=== PATIENT | male | born 1945 | race Caucasian/White ===

== ENCOUNTER 2018-12-13 12:49 | Inpatient (IN) | payer MEDICARE ==
[~2018-12-13] VITALS: Ht 180.3 cm; Wt 125.4 kg
[2018-12-13] VITALS (12 sets, daily range): BP systolic 107–158; BP diastolic 48–100
[~2018-12-13 12:49] MED LIST: ALBU2.5V5 NEB; ALBU2.5V8 INH; AMLO10TA8 PO; AMOX1TAB61 PO; ASPI-482 PO; CLOP75TA PO; EPINEPHrine SYRINGE 1 MG/10 ML SYRINGE ONE; FURO40TA4 PO; GLIM4TAB2 PO; GLIP10TA13 PO; GLIP5TAB3 PO; INSU100I13 SQ; LEVO125T5 PO; LEVO200T5 PO; LISI-130 PO; LISI-334 PO; METF100010 PO; METF10007 PO; METO25TA4 PO; NITR0.4T22 SL; OMEG1CAP38 PO; POTA10TA12 PO; POTA20TA4 PO; PRAS10TA9 PO; PRAV40TA2 PO
[2018-12-13] MEDS ORDERED: LIDOCAINE 1% Multi-Dose 20 ML VIAL. ONE (12:53)
[2018-12-13] MEDS ORDERED: IODIXANOL 320 MG/ML 100 ML VIAL. ONE (12:53)
[2018-12-13] MEDS ORDERED: diphenhydrAMINE 50 MG/ML VIAL ONE (12:57)
[2018-12-13] MEDS ORDERED: HEPARIN for IV BOLUS 10,000 UNIT/10 ML VIAL. ONE (12:57)
[2018-12-13] MEDS ORDERED: fentaNYL PF VIAL 100 MCG/2 ML VIAL ONE (12:57)
[2018-12-13] MEDS ORDERED: NITROGLYCERIN 200 MCG/2 ML SYRINGE FOR CATH/VASC LAB. ONE (12:57)
[2018-12-13] MEDS ORDERED: methylPREDNISolone SOD SUCC PF 125 MG/2 ML VIAL. ONE (12:57)
[2018-12-13] MEDS ORDERED: FAMOTIDINE 20 MG/2 ML VIAL ONE (12:57)
[2018-12-13] MEDS ORDERED: VERAPAMIL 5 MG/2 ML VIAL. ONE (12:57)
[2018-12-13] MEDS ORDERED: MIDAZOLAM HCL/PF 2 MG/2 ML VIAL. ONE (12:57)
[2018-12-13] MEDS ORDERED: NITROGLYCERIN PREMIX 250 ML IV ONE ×2 (13:04→13:15)
[2018-12-13] MEDS ORDERED: FUROSEMIDE 100 MG/10 ML VIAL. ONE (13:07)
[2018-12-13] MEDS ORDERED: FUROSEMIDE 100 MG/10 ML VIAL. IVP ONE (13:15)
--- NOTE | 2018-12-13 13:15 | PHYS DOC ---
Past Medical History Past Medical History: CHF, CVA, Diabetes-Type II, High Cholesterol, Heart Disease, Hypertension, Hypothyroid, UT, Other Additional Past Medical Histor: lower ext swelling, short term memory loss Past Surgical History: Other Additional Past Surgical Histo: carotidendarterecomty, cardiac stent Alcohol Use: Rarely Drug Use: None Adult General HPI HPI Patient is a 73-year-old male who presents to the emergency department in respiratory failure. According to EMS, the patient was found down in the shower by someone in his home, although the reliability of this information is unclear at this time. They placed the patient on BiPAP due to respiratory difficulty and hypoxia, and by the time the patient arrived in the emergency department, he was barely arousable. EMS activated the code STEMI, although upon arrival, inspection of both patient's prehospital and hospital EKGs reveals atrial fibrillation with a left branch block without acute ST elevation Myocardial infarction. Cardiology did meet the patient in the emergency department as well for this. The patient is unable to provide any history secondary to lethargy and respiratory failure. He was initially placed on CPAP by EMS, placed on BiPAP initially in the emergency department while preparations for intubation were made. Review of Systems Review of Systems Unable to obtain review of systems secondary to altered mental status. Current Medications Current Medications Current Medications Medications (Trade) Dose Ordered Sig/Nafisa Start Time Stop Time Status Last Admin Dose Admin Diphenhydramine HCl (Benadryl) 50 mg STK-MED ONCE 12/13/18 12:57 12/13/18 12:58 DC Famotidine (Pepcid Vial) 20 mg STK-MED ONCE 12/13/18 12:57 12/13/18 12:58 DC Fentanyl Citrate (Fentanyl 2ml Vial) 100 mcg STK-MED ONCE 12/13/18 12:57 12/13/18 12:58 DC Furosemide (Lasix) 80 mg 1X ONCE 12/13/18 13:15 12/13/18 13:16 DC 12/13/18 13:12 80 MG Heparin Sodium (Porcine) (Heparin Sodium) 10,000 unit STK-MED ONCE 12/13/18 12:57 12/13/18 12:58 DC Heparin Sodium/ Sodium Chloride 1,000 ml @ As Directed STK-MED ONCE 12/13/18 12:53 12/13/18 12:54 DC Iodixanol (Visipaque 320) 100 ml STK-MED ONCE 12/13/18 12:53 12/13/18 12:54 DC Lidocaine HCl (Lidocaine 1% 20ml Vial) 20 ml STK-MED ONCE 12/13/18 12:53 12/13/18 12:54 DC Methylprednisolone Sodium Succinate (SOLU-Medrol 125MG VIAL) 125 mg STK-MED ONCE 12/13/18 12:57 12/13/18 12:58 DC Midazolam HCl (Versed) 2 mg STK-MED ONCE 12/13/18 12:57 12/13/18 12:58 DC Nitroglycerin (Nitroglycerin) 200 mcg STK-MED ONCE 12/13/18 12:57 12/13/18 12:58 DC Nitroglycerin/ Dextrose 250 ml @ 0 mls/hr 1X ONCE 12/13/18 13:15 12/13/18 13:16 DC 12/13/18 13:11 1.5 MLS/HR Propofol 50 ml @ 1.857 mls/ hr 1X ONCE 12/13/18 13:30 12/14/18 16:25 12/13/18 13:31 14.86 MLS/HR Verapamil HCl (Verapamil) 5 mg STK-MED ONCE 12/13/18 12:57 12/13/18 12:58 DC Allergies Allergies Allergies Coded Allergies Type Severity Reaction Last Updated Verified Iodinated Contrast- Oral and IV Dye Allergy Intermediate Rash 07/19/16 Yes Physical Exam Physical Exam PHYSICAL EXAM: CONSTITUTIONAL: Well developed, well nourished HEAD: normocephalic, atraumatic EENT: PERRL, EOMI. Conjunctivae normal color, sclerae non-icteric; moist mucous membranes. NECK: Supple, non-tender; no meningismus. LUNGS: Diffuse rales, with decreased respiratory effort HEART: Irregularly irregular rhythm, no audible murmur CHEST: No deformity; non-tender ABDOMEN: The abdomen is soft, and non-tender, no masses or bruits. EXTREM: Normal ROM; no deformity, no calf tenderness. Normal pulses palpable in all extremities. There is 2+ bilateral pitting pedal edema. SKIN: No rash; there is diffuse diaphoresis NEURO: The patient is lethargic without definite focal deficit Current Patient Data Vital Signs Vital Signs Date Time Temp Pulse Resp B/P (MAP) Pulse Ox O2 Delivery O2 Flow Rate FiO2 12/13/18 13:06 92 Ventilator 12/13/18 12:50 96.3 115 20 155/98 (117) 96.3 Lab Values Laboratory Tests Test 12/13/18 13:05 12/13/18 13:11 12/13/18 13:20 White Blood Count 12.3 x10^3/uL (4.0-11.0) H Red Blood Count 4.04 x10^6/uL (4.30-5.70) L Hemoglobin 12.1 g/dL (13.0-17.5) L Hematocrit 38.2 % (39.0-53.0) L Mean Corpuscular Volume 95 fL (79-100) Mean Corpuscular Hemoglobin 30 pg (25-35) Mean Corpuscular Hemoglobin Concent 32 g/dL (31-37) Red Cell Distribution Width 15.1 % (11.5-14.5) H Platelet Count 222 x10^3/uL (140-400) Neutrophils (%) (Auto) 38 % (31-73) Lymphocytes (%) (Auto) 47 % (24-48) Monocytes (%) (Auto) 11 % (0-9) H Eosinophils (%) (Auto) 3 % (0-3) Basophils (%) (Auto) 1 % (0-3) Neutrophils # (Auto) 4.7 x10^3uL (1.8-7.7) Lymphocytes # (Auto) 5.8 x10^3/uL (1.0-4.8) H Monocytes # (Auto) 1.3 x10^3/uL (0.0-1.1) H Eosinophils # (Auto) 0.4 x10^3/uL (0.0-0.7) Basophils # (Auto) 0.1 x10^3/uL (0.0-0.2) Prothrombin Time 16.0 SEC (11.7-14.0) H Prothrombin Time INR 1.3 (0.8-1.1) H PTT 28 SEC (24-38) Sodium Level 138 mmol/L (136-145) Potassium Level 4.0 mmol/L (3.5-5.1) Chloride Level 102 mmol/L (98-107) Carbon Dioxide Level 23 mmol/L (21-32) Anion Gap 13 (6-14) 17 mmol/L (6-14) H Blood Urea Nitrogen 25 mg/dL (8-26) Creatinine 1.6 mg/dL (0.7-1.3) H Estimated GFR (Cockcroft-Gault) 42.7 BUN/Creatinine Ratio 16 (6-20) Glucose Level 396 mg/dL (70-99) H 391 mg/dL (70-99) H Calcium Level 8.7 mg/dL (8.5-10.1) Magnesium Level 2.0 mg/dL (1.8-2.4) Total Bilirubin 0.3 mg/dL (0.2-1.0) Aspartate Amino Transferase (AST) 22 U/L (15-37) Alanine Aminotransferase (ALT) 20 U/L (16-63) Alkaline Phosphatase 63 U/L (46-116) Creatine Kinase 74 U/L (39-308) Creatine Kinase MB (Mass) 2.2 ng/mL (0.0-3.6) Creatine Kinase MB Relative Index % (0-4) Troponin I Quantitative < 0.017 ng/mL (0.000-0.055) LE-Ksi-M-Type Natriuretic Peptide 514 pg/mL (0-124) H Total Protein 8.1 g/dL (6.4-8.2) Albumin 3.4 g/dL (3.4-5.0) Albumin/Globulin Ratio 0.7 (1.0-1.7) L POC Hemoglobin 12.6 g/dL (14-18) L POC Hematocrit 37 % (37-52) POC Sodium 140 mmol/L (135-145) POC Potassium 4.0 mmol/L (3.5-5.0) POC Chloride 104 mmol/L (98-110) POC Total CO2 24 mmol/L (23-32) POC Blood Urea Nitrogen 24 mg/dL (8-26) POC Creatinine 1.3 mg/dL (0.5-1.4) POC Ionized Calcium (Giuliana) 1.17 mmol/L (1.13-1.32) Urine Collection Type U cath Urine Color Yellow Urine Clarity Clear Urine pH 5.5 Urine Specific [place] 1.015 Urine Protein 100 mg/dL (NEG-TRACE) Urine Glucose (UA) >=1000 mg/dL (NEG) Urine Ketones (Stick) Negative mg/dL (NEG) Urine Blood Small (NEG) Urine Nitrite Negative (NEG) Urine Bilirubin Negative (NEG) Urine Urobilinogen Dipstick 0.2 mg/dL (0.2 mg/dL) Urine Leukocyte Esterase Negative (NEG) Urine RBC 11-20 /HPF (0-2) Urine WBC 0 /HPF (0-4) Urine Amorphous Sediment Present /HPF Urine Bacteria 0 /HPF (0-FEW) Urine Hyaline Casts Moderate /HPF Urine Mucus Slight /LPF Laboratory Tests 12/13/18 13:05 Laboratory Tests 12/13/18 13:05 12/13/18 13:11 EKG EKG [] atrial fibrillation at a rate of 115 beats for minute, left axis deviation, left bundle-branch block, with repolarization abnormality without definite acute ischemic ST/T changes. left Bundle-branch block was present on the patient's old EKG. Radiology/Procedures Radiology/Procedures [PROCEDURE: PORTABLE CHEST 1V PORTABLE CHEST 1V Clinical indications: ETT PLACEMENT COMPARISON: December 06, 2017. Findings: ET tube is in place and the tip is located 2 cm above the level of the bella. NG tube is in place in the tip cannot be seen in this study. Moderate bilateral perihilar lung infiltrates or pulmonary edema are seen. No pleural effusion or pneumothorax is seen. Heart size is prominent but stable. Bilateral vascular congestion is evident. The mediastinum is stable. IMPRESSION: Moderate bilateral perihilar pulmonary edema or lung infiltrates. Position of NG tube cannot be confirmed on this chest x-ray] Course & Med Decision Making Course & Med Decision Making Pertinent Labs and Imaging studies reviewed. (See chart for details) [] INTUBATION NOTE: The patient was preoxygenated, and given 20 mg of etomidate and 150 mg of succinylcholine. The patient was intubated with the use of a glidescope, a small amount of frothy sputum was suctioned from the posterior pharynx. The 7.5 endotracheal tube was placed, secured at a 4 cm at the lips, bilateral breath sounds are present, breath sounds were absent over the stomach, good color change was present with an end-tidal CO2 detector. CRITICAL CARE TIME: [50] Minutes, excluding any procedures and care of other patients. 1:50 PM: The patient's condition remains stable. I spoke with the hospitalist , who accepted the patient to the hospital for further evaluation and treatment. Ventilator settings will be titrated based on his ABG results. 2:05 PM: The patient had about a 15 second pause, relatively without warning, this was preceded either by a relative slow V. tach, or aberrent conduction, I was unable to determine from the monitor but I was in the room at the time. The patient received about 10 seconds of CPR, although this may have been a long pause instead of asystole. His gypsy transiently stopped, but he recovered well. He is more alert at this time, actually following commands after the episode. this is likely due to correction a CO2 narcosis by endotracheal intubation. Dragon Disclaimer Dragon Disclaimer This electronic medical record was generated, in whole or in part, using a voice recognition dictation system. Departure Departure Impression: Primary Impression: Respiratory failure Additional Impression: CHF (congestive heart failure) Disposition: 09 ADMITTED INPATIENT Admitting Physician: Other ([facility]) Condition: CRITICAL Referrals: YIMI DEGROOT MD (PCP) Problem Qualifiers BRAULIO ROBERT MD Dec 13, 2018 13:15
[2018-12-13 13:17] LABS: CREATININE ISTAT 1.3 mg/dL (0.5-1.4); HEMOGLOBIN ISTAT 12.6 g/dL (14-18); ION CA ISTAT 1.17 mmol/L (1.13-1.32)
[2018-12-13 13:20] LABS: BASO # 0.1 x10^3/uL (0.0-0.2); BASO % 1 % (0-3); EOS # 0.4 x10^3/uL (0.0-0.7); EOS % 3 % (0-3); HEMATOCRIT 38.2 % (39.0-53.0); HEMOGLOBIN 12.1 g/dL (13.0-17.5); LYMPH # 5.8 x10^3/uL (1.0-4.8); LYMPH % 47 % (24-48); MEAN CORPUSCULAR HEMOGLOBIN 30 pg (25-35); MEAN CORPUSCULAR HGB CONC 32 g/dL (31-37); MEAN CORPUSCULAR VOLUME 95 fL (79-100); MONO # 1.3 x10^3/uL (0.0-1.1); MONO % 11 % (0-9); NEUT # 4.7 x10^3uL (1.8-7.7); NEUT % 38 % (31-73); PLATELET COUNT 222 x10^3/uL (140-400); RED BLOOD COUNT 4.04 x10^6/uL (4.30-5.70); RED CELL DISTRIBUTION WIDTH 15.1 % (11.5-14.5); WHITE BLOOD COUNT 12.3 x10^3/uL (4.0-11.0)
[2018-12-13] MEDS ORDERED: PROPOFOL 50 ML IV ONE ×2 (13:25→13:30)
[2018-12-13 13:26] LABS: BASE EXCESS ABG -7 mmol/L (-3-3); HCO3 ABG 23 mmol/L (21-28); PO2 ABG 114 mmHg (65-108); SAT O2 ABG 97 % (92-99)
[2018-12-13 13:28] LABS: BILIRUBIN,URINE NEGATIVE (NEG); CLARITY,URINE CLEAR; COLOR,URINE YELLOW; NITRITE,URINE NEGATIVE (NEG); PH,URINE 5.5; PROTEIN,URINE 100 mg/dL (NEG-TRACE); UROBILINOGEN,URINE 0.2 mg/dL (0.2 mg/dL)
[2018-12-13 13:35] LABS: HYALINE CASTS, URINE MODERATE /HPF
[2018-12-13 13:36] LABS: ALBUMIN 3.4 g/dL (3.4-5.0); CALCIUM 8.7 mg/dL (8.5-10.1); CREATININE 1.6 mg/dL (0.7-1.3); GFR 42.7; TOTAL BILIRUBIN 0.3 mg/dL (0.2-1.0)
[2018-12-13 13:36] LABS: AMORPHOUS SEDIMENT,UR PRESENT /HPF; BACTERIA,URINE 0 /HPF (0-FEW); WBC,URINE 0 /HPF (0-4)
--- NOTE | 2018-12-13 13:41 | EKG ---
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
[2018-12-13 13:45] LABS: CREATINE KINASE 74 U/L (39-308)
--- NOTE | 2018-12-13 13:45 | RAD ---
PORTABLE CHEST 1V Clinical indications: ETT PLACEMENT COMPARISON: December 06, 2017. Findings: ET tube is in place and the tip is located 2 cm above the level of the bella. NG tube is in place in the tip cannot be seen in this study. Moderate bilateral perihilar lung infiltrates or pulmonary edema are seen. No pleural effusion or pneumothorax is seen. Heart size is prominent but stable. Bilateral vascular congestion is evident. The mediastinum is stable. IMPRESSION: Moderate bilateral perihilar pulmonary edema or lung infiltrates. Position of NG tube cannot be confirmed on this chest x-ray. Electronically signed by: Yohan Webb MD (12/13/2018 1:42 PM) [place] [id number]
[2018-12-13 13:48] LABS: ALBUMIN/GLOBULIN RATIO 0.7 (1.0-1.7); TOTAL PROTEIN 8.1 g/dL (6.4-8.2)
[2018-12-13] MEDS ORDERED: NITROGLYCERIN SUBLINGUAL 0.4 MG BOTTLE OF 25. SL PRN (14:15)
[2018-12-13] MEDS ORDERED: MORPHINE SULFATE 2 MG/ML VIAL. IV PRN (14:15)
[2018-12-13] MEDS ORDERED: ACETAMINOPHEN 325 MG TABLET. PO PRN (14:15)
[2018-12-13] MEDS ORDERED: ONDANSETRON PF 4 MG/2 ML VIAL. IV PRN (14:15)
[2018-12-13] MEDS ORDERED: oxyCODONE IR 5 MG TABLET PO PRN (14:15)
[2018-12-13] MEDS ORDERED: 0.9 % SODIUM CHLORIDE 10 ML DISP.SYRIN. IV PRN (14:15)
[2018-12-13] MEDS ORDERED: ENOXAPARIN 40 MG/0.4 ML SYRINGE. SQ SCH (14:30)
--- NOTE | 2018-12-13 14:31 | PDOC1 ---
History and Physical Date of Admission Date of Admission December 13, 2018 Identification/Chief Complaint Chief Complaint Respiratory failure Source Source: Caregiver, Chart review, Patient History of Present Illness History of Present Illness History is from interview with family members at bedside and from ER physician report Patient is a 73-year-old gentleman with multiple medical comorbidities including coronary artery disease history of chronic combined systolic and diastolic dysfunction was in his usual state of health until this morning apparently the patient became very short of breath and EMS was summoned to his residence where he was found to be dyspneic. 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 According to family members he has not had recent upper respiratory tract infection symptoms he didn't does not seem to have had recent fevers cough sputum production. Unfortunately according to the family members they are not quite sure if his adherent to his medications or if he observes the dietary restrictions with salt that he should be taking given his history of congestive heart failure. Upon arrival to the emergency department given the severe respiratory distress ER physician intubated patient and is currently on a ventilator awaiting for admission to the intensive care unit for acute respiratory failure hypoxemic secondary to urinary edema. No chest pain reported no palpitations no syncopal episodes no paroxysmal nocturnal dyspnea, the patient denied nausea vomiting or diarrhea. At the time my evaluation the patient is on mechanical ventilation in no apparent distress. Hemodynamics are stable sedated at the present time. Now responding to verbal stimuli due to the sedation. Reassurance has been provided to the family members at bedside plan of care explaining detail and all concerns address to the best of my abilities ER story: Patient is a 73-year-old male who presents to the emergency department in respiratory failure. According to EMS, the patient was found down in the shower by someone in his home, although the reliability of this information is unclear at this time. They placed the patient on BiPAP due to respiratory difficulty and hypoxia, and by the time the patient arrived in the emergency department, he was barely arousable. EMS activated the code STEMI, although upon arrival, inspection of both patient's prehospital and hospital EKGs reveals atrial fibrillation with a left branch block without acute ST elevation Myocardial infarction. Cardiology did meet the patient in the emergency department as well for this. The patient is unable to provide any history secondary to lethargy and respiratory failure. He was initially placed on CPAP by EMS, placed on BiPAP initially in the emergency department while preparations for intubation were made. Past Medical History Cardiovascular: CHF, HTN, [place], Other Pulmonary: No pertinent hx, Bronchitis, COPD, Pneumonia, Other CENTRAL NERVOUS SYSTEM: CVA GI: GERD Renal/: Chronic renal insuff Endocrine: Diabetes, Hypothyroidism Past Surgical History Past Surgical History: Other, No pertinent history Family History Family History: Family History Unknown Social History ALCOHOL: rare Drugs: None Current Problem List Problem List Problems Medical Problems: (1) CHF (congestive heart failure) Status: Acute (2) Respiratory failure Status: Acute Current Medications Current Medications Current Medications Medications (Trade) Dose Ordered Sig/Nafisa Start Time Stop Time Status Last Admin Dose Admin Acetaminophen (Tylenol) 650 mg PRN Q6HRS PRN 12/13/18 14:15 Amlodipine Besylate (Norvasc) 10 mg DAILY 12/14/18 09:00 Aspirin (Ecotrin) 81 mg DAILY 12/14/18 09:00 Clopidogrel Bisulfate (Plavix) 75 mg DAILY 12/14/18 09:00 Diphenhydramine HCl (Benadryl) 50 mg STK-MED ONCE 12/13/18 12:57 12/13/18 12:58 DC Famotidine (Pepcid Vial) 20 mg BID 12/13/18 21:00 Fentanyl Citrate (Fentanyl 2ml Vial) 100 mcg STK-MED ONCE 12/13/18 12:57 12/13/18 12:58 DC Furosemide (Lasix) 80 mg 1X ONCE 12/13/18 13:15 12/13/18 13:16 DC 12/13/18 13:12 80 MG Heparin Sodium (Porcine) (Heparin Sodium) 5,000 unit Q8HRS 12/13/18 22:00 Heparin Sodium/ Sodium Chloride 1,000 ml @ As Directed STK-MED ONCE 12/13/18 12:53 12/13/18 12:54 DC Info (Icu Electrolyte Protocol) 1 ea DAILY 12/14/18 09:00 Iodixanol (Visipaque 320) 100 ml STK-MED ONCE 12/13/18 12:53 12/13/18 12:54 DC Lidocaine HCl (Lidocaine 1% 20ml Vial) 20 ml STK-MED ONCE 12/13/18 12:53 12/13/18 12:54 DC Lorazepam (Ativan) 0.5 mg PRN Q6HRS PRN 12/13/18 14:15 Methylprednisolone Sodium Succinate (SOLU-Medrol 125MG VIAL) 125 mg STK-MED ONCE 12/13/18 12:57 12/13/18 12:58 DC Midazolam HCl (Versed) 2 mg STK-MED ONCE 12/13/18 12:57 12/13/18 12:58 DC Morphine Sulfate (Morphine Sulfate) 2 mg PRN Q1HR PRN 12/13/18 14:15 Nitroglycerin (Nitroglycerin) 200 mcg STK-MED ONCE 12/13/18 12:57 12/13/18 12:58 DC Nitroglycerin/ Dextrose 250 ml @ 0 mls/hr 1X ONCE 12/13/18 13:15 12/13/18 13:16 DC 12/13/18 13:11 1.5 MLS/HR Ondansetron HCl (Zofran) 4 mg PRN Q6HRS PRN 12/13/18 14:15 Oxycodone HCl (Roxicodone) 5 mg PRN Q3HRS PRN 12/13/18 14:15 Propofol 50 ml @ 1.857 mls/ hr 1X ONCE 12/13/18 13:30 12/14/18 16:25 12/13/18 13:31 14.86 MLS/HR Senna/Docusate Sodium (Senna Plus) 1 tab BID 12/13/18 21:00 Sodium Chloride (Normal Saline Flush) 3 ml QSHIFT PRN 12/13/18 14:15 Verapamil HCl (Verapamil) 5 mg STK-MED ONCE 12/13/18 12:57 12/13/18 12:58 DC Allergies Allergies Allergies Coded Allergies Type Severity Reaction Last Updated Verified Iodinated Contrast- Oral and IV Dye Allergy Intermediate Rash 07/19/16 Yes ROS Review of System Unable to assess due to endotracheal tube present and sedation Physical Exam Physical Exam Gen.: Obese currently on mechanical ventilation in no apparent distress Head: Normal shape atraumatic Eyes: Pupils equal reactive to light and accommodation, normal conjunctivae and lids Ears: Normal shape Nose: Normal shape no trauma Mouth: No exudates of the back of throat no thrush no lesions Neck: Supple no JVD no carotid bruit or lymphadenopathy no thyromegaly Chest: Lungs clear to auscultation with good inspiratory effort lower lung field crackles, no rales or rhonchi Cardiovascular: S1-S2 regular rhythm no murmurs gallops or rubs Abdomen: Bowel sounds present soft nontender no hepatosplenomegaly appreciated sign Extremities: No clubbing no cyanosis no edema peripheral pulses palpated bilaterally Neurological: Alert awake oriented in person time place and situation, cranial nerves II through XII intact, no motor or sensory deficits appreciated Psych: Appropriate mood, cooperative Vitals Vitals Vital Signs Date Time Temp Pulse Resp B/P (MAP) Pulse Ox O2 Delivery O2 Flow Rate FiO2 12/13/18 13:06 92 Ventilator 12/13/18 12:50 96.3 115 20 155/98 (117) 96.3 Labs Labs Laboratory Tests Test 12/13/18 13:05 12/13/18 13:11 12/13/18 13:20 White Blood Count 12.3 x10^3/uL (4.0-11.0) Red Blood Count 4.04 x10^6/uL (4.30-5.70) Hemoglobin 12.1 g/dL (13.0-17.5) Hematocrit 38.2 % (39.0-53.0) Mean Corpuscular Volume 95 fL (79-100) Mean Corpuscular Hemoglobin 30 pg (25-35) Mean Corpuscular Hemoglobin Concent 32 g/dL (31-37) Red Cell Distribution Width 15.1 % (11.5-14.5) Platelet Count 222 x10^3/uL (140-400) Neutrophils (%) (Auto) 38 % (31-73) Lymphocytes (%) (Auto) 47 % (24-48) Monocytes (%) (Auto) 11 % (0-9) Eosinophils (%) (Auto) 3 % (0-3) Basophils (%) (Auto) 1 % (0-3) Neutrophils # (Auto) 4.7 x10^3uL (1.8-7.7) Lymphocytes # (Auto) 5.8 x10^3/uL (1.0-4.8) Monocytes # (Auto) 1.3 x10^3/uL (0.0-1.1) Eosinophils # (Auto) 0.4 x10^3/uL (0.0-0.7) Basophils # (Auto) 0.1 x10^3/uL (0.0-0.2) Prothrombin Time 16.0 SEC (11.7-14.0) Prothromb Time International Ratio 1.3 (0.8-1.1) Activated Partial Thromboplast Time 28 SEC (24-38) Sodium Level 138 mmol/L (136-145) Potassium Level 4.0 mmol/L (3.5-5.1) Chloride Level 102 mmol/L (98-107) Carbon Dioxide Level 23 mmol/L (21-32) Anion Gap 13 (6-14) 17 mmol/L (6-14) Blood Urea Nitrogen 25 mg/dL (8-26) Creatinine 1.6 mg/dL (0.7-1.3) Estimated GFR (Cockcroft-Gault) 42.7 BUN/Creatinine Ratio 16 (6-20) Glucose Level 396 mg/dL (70-99) 391 mg/dL (70-99) Calcium Level 8.7 mg/dL (8.5-10.1) Magnesium Level 2.0 mg/dL (1.8-2.4) Total Bilirubin 0.3 mg/dL (0.2-1.0) Aspartate Amino Transf (AST/SGOT) 22 U/L (15-37) Alanine Aminotransferase (ALT/SGPT) 20 U/L (16-63) Alkaline Phosphatase 63 U/L (46-116) Creatine Kinase 74 U/L (39-308) Creatine Kinase MB (Mass) 2.2 ng/mL (0.0-3.6) Creatine Kinase MB Relative Index % (0-4) Troponin I Quantitative < 0.017 ng/mL (0.000-0.055) LA-Hyv-X-Type Natriuretic Peptide 514 pg/mL (0-124) Total Protein 8.1 g/dL (6.4-8.2) Albumin 3.4 g/dL (3.4-5.0) Albumin/Globulin Ratio 0.7 (1.0-1.7) Bedside Hemoglobin 12.6 g/dL (14-18) Bedside Hematocrit 37 % (37-52) Bedside Sodium 140 mmol/L (135-145) Bedside Potassium 4.0 mmol/L (3.5-5.0) Bedside Chloride 104 mmol/L (98-110) Bedside Total CO2 24 mmol/L (23-32) Bedside Blood Urea Nitrogen 24 mg/dL (8-26) Bedside Creatinine 1.3 mg/dL (0.5-1.4) Bedside Ionized Calcium (Giuliana) 1.17 mmol/L (1.13-1.32) Urine Collection Type U cath Urine Color Yellow Urine Clarity Clear Urine pH 5.5 Urine Specific [place] 1.015 Urine Protein 100 mg/dL (NEG-TRACE) Urine Glucose (UA) >=1000 mg/dL (NEG) Urine Ketones (Stick) Negative mg/dL (NEG) Urine Blood Small (NEG) Urine Nitrite Negative (NEG) Urine Bilirubin Negative (NEG) Urine Urobilinogen Dipstick 0.2 mg/dL (0.2 mg/dL) Urine Leukocyte Esterase Negative (NEG) Urine RBC 11-20 /HPF (0-2) Urine WBC 0 /HPF (0-4) Urine Amorphous Sediment Present /HPF Urine Bacteria 0 /HPF (0-FEW) Urine Hyaline Casts Moderate /HPF Urine Mucus Slight /LPF Laboratory Tests Test 12/13/18 13:05 12/13/18 13:11 12/13/18 13:20 White Blood Count 12.3 x10^3/uL (4.0-11.0) Red Blood Count 4.04 x10^6/uL (4.30-5.70) Hemoglobin 12.1 g/dL (13.0-17.5) Hematocrit 38.2 % (39.0-53.0) Mean Corpuscular Volume 95 fL (79-100) Mean Corpuscular Hemoglobin 30 pg (25-35) Mean Corpuscular Hemoglobin Concent 32 g/dL (31-37) Red Cell Distribution Width 15.1 % (11.5-14.5) Platelet Count 222 x10^3/uL (140-400) Neutrophils (%) (Auto) 38 % (31-73) Lymphocytes (%) (Auto) 47 % (24-48) Monocytes (%) (Auto) 11 % (0-9) Eosinophils (%) (Auto) 3 % (0-3) Basophils (%) (Auto) 1 % (0-3) Neutrophils # (Auto) 4.7 x10^3uL (1.8-7.7) Lymphocytes # (Auto) 5.8 x10^3/uL (1.0-4.8) Monocytes # (Auto) 1.3 x10^3/uL (0.0-1.1) Eosinophils # (Auto) 0.4 x10^3/uL (0.0-0.7) Basophils # (Auto) 0.1 x10^3/uL (0.0-0.2) Prothrombin Time 16.0 SEC (11.7-14.0) Prothromb Time International Ratio 1.3 (0.8-1.1) Activated Partial Thromboplast Time 28 SEC (24-38) Sodium Level 138 mmol/L (136-145) Potassium Level 4.0 mmol/L (3.5-5.1) Chloride Level 102 mmol/L (98-107) Carbon Dioxide Level 23 mmol/L (21-32) Anion Gap 13 (6-14) 17 mmol/L (6-14) Blood Urea Nitrogen 25 mg/dL (8-26) Creatinine 1.6 mg/dL (0.7-1.3) Estimated GFR (Cockcroft-Gault) 42.7 BUN/Creatinine Ratio 16 (6-20) Glucose Level 396 mg/dL (70-99) 391 mg/dL (70-99) Calcium Level 8.7 mg/dL (8.5-10.1) Magnesium Level 2.0 mg/dL (1.8-2.4) Total Bilirubin 0.3 mg/dL (0.2-1.0) Aspartate Amino Transf (AST/SGOT) 22 U/L (15-37) Alanine Aminotransferase (ALT/SGPT) 20 U/L (16-63) Alkaline Phosphatase 63 U/L (46-116) Creatine Kinase 74 U/L (39-308) Creatine Kinase MB (Mass) 2.2 ng/mL (0.0-3.6) Creatine Kinase MB Relative Index % (0-4) Troponin I Quantitative < 0.017 ng/mL (0.000-0.055) JA-Har-B-Type Natriuretic Peptide 514 pg/mL (0-124) Total Protein 8.1 g/dL (6.4-8.2) Albumin 3.4 g/dL (3.4-5.0) Albumin/Globulin Ratio 0.7 (1.0-1.7) Bedside Hemoglobin 12.6 g/dL (14-18) Bedside Hematocrit 37 % (37-52) Bedside Sodium 140 mmol/L (135-145) Bedside Potassium 4.0 mmol/L (3.5-5.0) Bedside Chloride 104 mmol/L (98-110) Bedside Total CO2 24 mmol/L (23-32) Bedside Blood Urea Nitrogen 24 mg/dL (8-26) Bedside Creatinine 1.3 mg/dL (0.5-1.4) Bedside Ionized Calcium (Giuliana) 1.17 mmol/L (1.13-1.32) Urine Collection Type U cath Urine Color Yellow Urine Clarity Clear Urine pH 5.5 Urine Specific [place] 1.015 Urine Protein 100 mg/dL (NEG-TRACE) Urine Glucose (UA) >=1000 mg/dL (NEG) Urine Ketones (Stick) Negative mg/dL (NEG) Urine Blood Small (NEG) Urine Nitrite Negative (NEG) Urine Bilirubin Negative (NEG) Urine Urobilinogen Dipstick 0.2 mg/dL (0.2 mg/dL) Urine Leukocyte Esterase Negative (NEG) Urine RBC 11-20 /HPF (0-2) Urine WBC 0 /HPF (0-4) Urine Amorphous Sediment Present /HPF Urine Bacteria 0 /HPF (0-FEW) Urine Hyaline Casts Moderate /HPF Urine Mucus Slight /LPF VTE Prophylaxis Ordered VTE Prophylaxis Devices: Yes VTE Pharmacological Prophylaxi: No Assessment/Plan Assessment/Plan Acute hypoxemic respiratory failure secondary to most likely CHF exacerbation Acute on chronic combined systolic and diastolic dysfunction Obesity with a BMI of 38 Obesity hypoventilation syndrome Diabetes mellitus type 2 insulin requiring History off dyslipidemia on statin therapy History of hypothyroidism History of coronary artery disease status post PCI approximately a year ago with RCA involvement currently undergoing medical management History of carotid endarterectomy COPD secondary to smoking history with a greater than [id number] history of smoking quit approximately 10 years ago Plan: Admit to the intensive care unit N management as per Dr. Molina We will consult cardiology at this point Resume home medications Due to the with propofol for sedation Supportive measures Further recommendations based on the clinical course We'll follow results of cultures DVT prophylaxis with heparin YIMI GE MD Dec 13, 2018 14:31
--- NOTE | 2018-12-13 15:00 | NUR ---
Pt admitted to room 105 from the ED via stretcher. Pt is intubated and is lightly sedated. Pt transferred to our bed and monitoring equipment placed. Pt SB on the monitor with a heart rate in the 40's. Blood pressure is stable. Family is at the bedside and the admission questions answered.
[2018-12-13] MEDS ORDERED: ETOMIDATE 20 MG/10 ML VIAL. IV ONE (15:01)
[2018-12-13] MEDS ORDERED: SUCCINYLCHOLINE 200 MG/10 ML VIAL. ONE (15:02)
--- NOTE | 2018-12-13 15:23 | CONS ---
DATE OF CONSULTATION: ATTENDING PHYSICIAN: Dr. Reed. REASON FOR CONSULTATION: Respiratory failure. Brief code blue. HISTORY OF PRESENT ILLNESS: The patient is a 73-year-old morbidly obese male with a BMI of 38. He has history of cardiomyopathy with an EF of 38% and then had a recent cardiac catheterization, which showed left ventricular end diastolic pressure of 21. The patient has underlying COPD, details of which not available as well as sleep apnea. He presented to the Emergency Department after he was found down in the shower by someone in his home. The patient was less responsive and almost obtunded on arrival. He was placed on BiPAP initially, but he failed BiPAP. As a result, he was intubated. Initially, a code STEMI was called, but upon arrival, the patient's EKG reveals atrial fibrillation and a left bundle branch block without any ST elevation. The patient was intubated. I have reviewed the post-intubation chest x-ray, shows bilateral interstitial infiltrates, endotracheal tube in satisfactory position. His arterial blood gases were abnormal with a pH of 7.15, pCO2 of 66 and a pO2 of 113, with a bicarbonate of 22 on 100% oxygen. The patient also had a brief 10-15 seconds CPR for an EKG pause and responded without any medications. PAST MEDICAL HISTORY: History of CHF, history of cardiomyopathy with an EF of 38%, history of CVA, type 2 diabetes, dyslipidemia, heart disease, hypertension, hypothyroidism and chronic lower extremity edema. PAST SURGICAL HISTORY: Carotid endarterectomy and cardiac stent. ALLERGIES: IV DYE. MEDICATIONS: Given in the ER were reviewed. REVIEW OF SYSTEMS: Unable to obtain from the patient. SOCIAL HISTORY: Unable to obtain from the patient. PHYSICAL EXAMINATION: VITAL SIGNS: Latest shows a blood pressure 155/98, pulse ox is 97%. HEENT: Pupils do react. Sclerae nonicteric. NECK: Supple. LUNGS: With occasional wheezes anteriorly. CARDIOVASCULAR: Regular rate and rhythm. ABDOMEN: Soft, markedly obese. EXTREMITIES: Bilateral pitting edema and signs of venous stasis. LABORATORY DATA: Reviewed. ABGs as discussed in my history of present illness. White cell count 12.3, hemoglobin 12.1 and platelets are 222. BUN is 25 and a creatinine of 1.6, which is abnormal. His urinalysis is negative. His INR 1.3. IMPRESSION: 1. Acute hypoxic and hypercapnic respiratory failure secondary to acute on chronic systolic heart failure. 2. The patient with known cardiomyopathy with an EF of 38% and a recent cardiac catheterization suggesting evidence of high filling pressures with increased left ventricular end diastolic pressure of 21. Now comes in with worsening congestive heart failure. 3. Morbid obesity and suspected obesity hypoventilation syndrome. 4. Suspected underlying chronic obstructive pulmonary disease. 5. Renal insufficiency. 6. Encephalopathy, toxic and metabolic. 7. Abnormal chest x-ray consistent with congestive heart failure. RECOMMENDATIONS: 1. Continue with present assist control mode. The rate has been increased to correct respiratory acidosis. We will increase the PEEP to 7 and follow ABGs and make necessary adjustment. 2. Diuresis. 3. The patient had brief CPR for EKG pause for about 10 seconds. Cardiology to follow. 4. Bronchodilators. 5. DVT prophylaxis. 6. Stress ulcer prophylaxis. 7. Follow up chest x-rays. 8. Follow renal function. 9. Prognosis is guarded. 10. We will follow along with you. Discussed with Ashley in the Emergency Room, an RN. Critical care time 35 minutes. CATIE URIBE MD DR: MAXWELL/shira JOB#: [id number] / [id number]
--- NOTE | 2018-12-13 15:30 | NUR ---
All home meds put in the computer and bag of medication returned to the [facility] Ginny.
[2018-12-13] MEDS ORDERED: SITA1TAB11 PO (15:40)
[2018-12-13] MEDS: PROPOFOL 100 ML IV PRN ×3 (15:46→21:07)
[2018-12-13] MEDS: IPRATRPIUM/ALBUTEROL 0.5/2.5MG 3 ML NEBU. NEB SCH ×2 (15:58→19:21)
--- NOTE | 2018-12-13 16:08 | EKG ---
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
--- NOTE | 2018-12-13 16:13 | PDOC2 ---
CARDIAC CONSULT DATE OF CONSULT Date of Consult DATE: 12/13/18 TIME: 16:08 REASON FOR CONSULT Reason for Consult: CHF REFERRING PHYSICIAN Referring Physician: Dr. Alvarez SOURCE Source: Chart review, Patient HISTORY OF PRESENT ILLNESS HISTORY OF PRESENT ILLNESS This is a 73 yo male who presented secondary distress. EMS was called from independent living facility. Severe distress upon arrival to ED. Was placed on BiPAP without any significant improvement. Due to respiratory decline, decision was made to intubate. EKG notable for LBBB. STEMI was initially called, but canceled after further review of EKG. While in ED, had about 10 second pause. Presently maintain SB with a rate of 45-50. HPI obtained from chart review as patient is sedated/intubated and family is not at bedside.. PAST MEDICAL HISTORY Cardiovascular: AFIB, CAD (s/p PCI/stent ), CHF, HTN, Hyperlipidemia Pulmonary: No pertinent hx, Pneumonia CENTRAL NERVOUS SYSTEM: CVA, Periperal neuropathy GI: No pertinent hx Heme/Onc: Other (DVT) Hepatobiliary: No pertinent hx Psych: No pertinent hx Musculoskeletal: Osteoarthritis Infectious disease: No pertinent hx ENT: No pertinent hx Renal/: No pertinent hx Endocrine: Diabetes, Hypothyroidism Dermatology: No pertinent hx PAST SURGICAL HISTORY Past Surgical History: Hernia Repair, Tonsillectomy FAMILY HISTORY Family History: Hypertension SOCIAL HISTORY Smoke: Quit (13 years ago) ALCOHOL: none Drugs: None Lives: Alone CURRENT MEDICATIONS CURRENT MEDICATIONS Current Medications Medications (Trade) Dose Ordered Sig/Nafisa Route PRN Reason Start Time Stop Time Status Last Admin Dose Admin Nitroglycerin/ Dextrose 250 ml @ 0 mls/hr 1X ONCE IV 12/13/18 13:15 12/13/18 13:16 DC 12/13/18 13:11 Furosemide (Lasix) 80 mg 1X ONCE IVP 12/13/18 13:15 12/13/18 13:16 DC 12/13/18 13:12 Propofol 50 ml @ 1.857 mls/ hr 1X ONCE IV 12/13/18 13:30 12/14/18 16:25 12/13/18 13:31 Albuterol/ Ipratropium (Duoneb) 3 ml RTQID NEB 12/13/18 16:00 12/13/18 15:58 Propofol 100 ml @ 1.857 mls/ hr CONT PRN IV SEE I/O RECORD 12/13/18 15:15 12/13/18 15:46 ALLERGIES ALLERGIES: Coded Allergies: Iodinated Contrast- Oral and IV Dye (Verified Allergy, Intermediate, Rash , 07/19/16) ROS Review of System unobtainable. PHYSICAL EXAM General: Other (intubated, sedated) HEENT: Atraumatic Lungs: Clear to auscultation, Other (diminished bases) Heart: Other (tele SB, distant heart tones) Abdomen: Other (obese) Extremities: Normal pulses, Other (2+ bilateral LE edema ) Skin: No significant lesion Neuro: Normal tone Psych/Mental Status: Other (unable to assess) MUSCULOSKELETAL: Osteoarthritic changes both hands VITALS VITALS Vital Signs Date Time Temp Pulse Resp B/P (MAP) Pulse Ox O2 Delivery O2 Flow Rate FiO2 12/13/18 14:40 58 20 122/67 (85) 100 Ventilator 12/13/18 12:50 96.3 96.3 LABS Lab: Laboratory Tests Test 12/13/18 13:05 12/13/18 13:11 12/13/18 13:20 White Blood Count 12.3 x10^3/uL (4.0-11.0) Red Blood Count 4.04 x10^6/uL (4.30-5.70) Hemoglobin 12.1 g/dL (13.0-17.5) Hematocrit 38.2 % (39.0-53.0) Mean Corpuscular Volume 95 fL (79-100) Mean Corpuscular Hemoglobin 30 pg (25-35) Mean Corpuscular Hemoglobin Concent 32 g/dL (31-37) Red Cell Distribution Width 15.1 % (11.5-14.5) Platelet Count 222 x10^3/uL (140-400) Neutrophils (%) (Auto) 38 % (31-73) Lymphocytes (%) (Auto) 47 % (24-48) Monocytes (%) (Auto) 11 % (0-9) Eosinophils (%) (Auto) 3 % (0-3) Basophils (%) (Auto) 1 % (0-3) Neutrophils # (Auto) 4.7 x10^3uL (1.8-7.7) Lymphocytes # (Auto) 5.8 x10^3/uL (1.0-4.8) Monocytes # (Auto) 1.3 x10^3/uL (0.0-1.1) Eosinophils # (Auto) 0.4 x10^3/uL (0.0-0.7) Basophils # (Auto) 0.1 x10^3/uL (0.0-0.2) Prothrombin Time 16.0 SEC (11.7-14.0) Prothromb Time International Ratio 1.3 (0.8-1.1) Activated Partial Thromboplast Time 28 SEC (24-38) Sodium Level 138 mmol/L (136-145) Potassium Level 4.0 mmol/L (3.5-5.1) Chloride Level 102 mmol/L (98-107) Carbon Dioxide Level 23 mmol/L (21-32) Anion Gap 13 (6-14) 17 mmol/L (6-14) Blood Urea Nitrogen 25 mg/dL (8-26) Creatinine 1.6 mg/dL (0.7-1.3) Estimated GFR (Cockcroft-Gault) 42.7 BUN/Creatinine Ratio 16 (6-20) Glucose Level 396 mg/dL (70-99) 391 mg/dL (70-99) Calcium Level 8.7 mg/dL (8.5-10.1) Magnesium Level 2.0 mg/dL (1.8-2.4) Total Bilirubin 0.3 mg/dL (0.2-1.0) Aspartate Amino Transf (AST/SGOT) 22 U/L (15-37) Alanine Aminotransferase (ALT/SGPT) 20 U/L (16-63) Alkaline Phosphatase 63 U/L (46-116) Creatine Kinase 74 U/L (39-308) Creatine Kinase MB (Mass) 2.2 ng/mL (0.0-3.6) Creatine Kinase MB Relative Index % (0-4) Troponin I Quantitative < 0.017 ng/mL (0.000-0.055) KS-Rik-M-Type Natriuretic Peptide 514 pg/mL (0-124) Total Protein 8.1 g/dL (6.4-8.2) Albumin 3.4 g/dL (3.4-5.0) Albumin/Globulin Ratio 0.7 (1.0-1.7) Bedside Hemoglobin 12.6 g/dL (14-18) Bedside Hematocrit 37 % (37-52) Bedside Sodium 140 mmol/L (135-145) Bedside Potassium 4.0 mmol/L (3.5-5.0) Bedside Chloride 104 mmol/L (98-110) Bedside Total CO2 24 mmol/L (23-32) Bedside Blood Urea Nitrogen 24 mg/dL (8-26) Bedside Creatinine 1.3 mg/dL (0.5-1.4) Bedside Ionized Calcium (Giuliana) 1.17 mmol/L (1.13-1.32) Urine Collection Type U cath Urine Color Yellow Urine Clarity Clear Urine pH 5.5 Urine Specific Ola 1.015 Urine Protein 100 mg/dL (NEG-TRACE) Urine Glucose (UA) >=1000 mg/dL (NEG) Urine Ketones (Stick) Negative mg/dL (NEG) Urine Blood Small (NEG) Urine Nitrite Negative (NEG) Urine Bilirubin Negative (NEG) Urine Urobilinogen Dipstick 0.2 mg/dL (0.2 mg/dL) Urine Leukocyte Esterase Negative (NEG) Urine RBC 11-20 /HPF (0-2) Urine WBC 0 /HPF (0-4) Urine Amorphous Sediment Present /HPF Urine Bacteria 0 /HPF (0-FEW) Urine Hyaline Casts Moderate /HPF Urine Mucus Slight /LPF HEART CATH HEART CATH Coronary Angiography The patient's coronary anatomy is left dominant. The left main coronary artery is a large size vessel free of disease. The left main bifurcates to the left anterior descending and circumflex. The left anterior descending artery is a large size vessel with mild-moderate diffused disease. There is a 50% stenosis in the proximal segment. The first diagonal branch is a medium size vessel free of disease. The second diagonal branch is a small size vessel with mild-moderate diffused disease. The third diagonal branch is a small size vessel with mild-moderate diffused disease. The circumflex artery is a large size vessel with intimal irregularities and the stent in the mid-segment is patent. The first obtuse marginal branch is a medium size vessel with mild diffused disease. The second obtuse marginal branch is a small size vessel free of disease. The third obtuse marginal branch is a medium size vessel with mild diffused disease. The left posterior descending artery is a medium size vessel free of disease. The right coronary artery is a small size vessel with diffuse calcification noted throughout this vessel and with significant stenosis. There is a 100% stenosis in the mid segment. this is a hypoplastic RCA Left Ventriculography The left ventricle is dilated in size with decreased contractility. The left ventricular ejection fraction is estimated to be 38%. The left ventricular end diastolic pressure is 21 mmHg. There was no gradient across the aortic valve upon pullback. Right Heart Cath Findings The Right Atrial Pressure is 12 mmHg. The Right Ventricular Pressure is 48/1 mmHg. The Pulmonary Artery Pressure is 48/21 mmHg. The Pulmonary Catheter Wedge Pressure is 20 mmHg. Conclusion This pt with pulmonary HTN, obesity, COPD, ARACELI needs medical Tx for the CAD and further evaluation by the Pulmonary service DATE: 12/07/171810 ASSESSMENT/PLAN ASSESSMENT/PLAN 1. Acute on chronic respiratory failure secondary to #2 2. Acute on chronic systolic HF 3. ICM; LVEF estimated at 38% per cath 11/2017 4. Arrhythmia; presently SB rate 45-50. 15 sec pause with brief CPR in ED. 5. CAD s/p PCI/stent in 2015 6. Hypertension; controlled 7. Hyperlipidemia; statin 8. PAFIB 9. Diabetes, II 10. WILLA 11. Obesity, hypoventilation syndrome Recommendations Diuresis with monitoring of labs Echo to assess LV systolic function Secondary prevention measures as able Avoid AV kulwinder blocking agents. Monitor tele Lung optimization as per pulmonary Supportive care Consider further ischemic evaluation when acute issues resolve. SIMON PATEL APRN Dec 13, 2018 16:12
[2018-12-13 16:20] LABS: BASE EXCESS ABG 0 mmol/L (-3-3); HCO3 ABG 26 mmol/L (21-28); PCO2 ABG 48 mmHg (35-46); PO2 ABG 71 mmHg (65-108); SAT O2 ABG 93 % (92-99)
[2018-12-13 16:21] LABS: FIO2 ABG 60
[2018-12-13 16:51] LABS: FIO2 ABG 100; PCO2 ABG 66 mmHg (35-46)
[2018-12-13 17:08] LABS: CHOLESTEROL/HDL RATIO 6.1
[2018-12-13] MEDS: fentaNYL PF VIAL 100 MCG/2 ML VIAL IV PRN ×2 (19:18→23:25)
[2018-12-13] MEDS ORDERED: FAMOTIDINE 20 MG/2 ML VIAL IVP SCH (21:00)
[2018-12-13] MEDS ORDERED: METOPROLOL TART IMMED RELEASE 25 MG TABLET. PO SCH (21:00)
[2018-12-13] MEDS ORDERED: ATORVASTATIN CALCIUM 10 MG TABLET. PO SCH (21:00)
[2018-12-13] MEDS ORDERED: SENNOSIDES/DOCUSATE 8.6/50MG TABLET. PO SCH (21:00)
[2018-12-13] MEDS ORDERED: HEPARIN for SUB-Q USE 5,000 UNIT/ML VIAL. SQ SCH (22:00)
[2018-12-13] MEDS ORDERED: HEPARIN for IV BOLUS 10,000 UNIT/10 ML VIAL. IV PRN (22:45)
[2018-12-13] MEDS: FAMOTIDINE 20 MG/2 ML VIAL IVP SCH (22:50)
[2018-12-13] MEDS: HEPARIN 25,000UTS/500ML PREMIX 500 ML IV PRN (22:55)
[2018-12-13] MEDS: INSULIN GLARGINE 300 UNITS/3 ML INSULN.PEN. SQ SCH (23:32)
[2018-12-14] VITALS (27 sets, daily range): BP systolic 111–169; BP diastolic 41–70
[2018-12-14] MEDS: ANTI-COAG MONITOR BY PHARMACY. MC PRN ×2 (01:46→09:56)
[2018-12-14] MEDS: PROPOFOL 100 ML IV PRN ×10 (01:57→23:53)
[2018-12-14] MEDS: fentaNYL PF VIAL 100 MCG/2 ML VIAL IV PRN ×3 (03:50→21:29)
[2018-12-14 05:41] LABS: BASO % 1 % (0-3); EOS # 0.1 x10^3/uL (0.0-0.7); EOS % 1 % (0-3); HEMATOCRIT 30.9 % (39.0-53.0); HEMOGLOBIN 10.2 g/dL (13.0-17.5); LYMPH # 1.4 x10^3/uL (1.0-4.8); LYMPH % 19 % (24-48); MEAN CORPUSCULAR HEMOGLOBIN 30 pg (25-35); MEAN CORPUSCULAR HGB CONC 33 g/dL (31-37); MEAN CORPUSCULAR VOLUME 92 fL (79-100); MONO # 0.8 x10^3/uL (0.0-1.1); MONO % 11 % (0-9); NEUT % 68 % (31-73); PLATELET COUNT 165 x10^3/uL (140-400); RED BLOOD COUNT 3.36 x10^6/uL (4.30-5.70); RED CELL DISTRIBUTION WIDTH 15.2 % (11.5-14.5); WHITE BLOOD COUNT 7.3 x10^3/uL (4.0-11.0)
[2018-12-14] MEDS ORDERED: LEVOTHYROXINE 100 MCG TABLET PO SCH (06:00)
[2018-12-14 07:09] LABS: CALCIUM 8.6 mg/dL (8.5-10.1); CREATININE 1.4 mg/dL (0.7-1.3); GFR 49.8; POTASSIUM 3.6 mmol/L (3.5-5.1)
[2018-12-14] MEDS: IPRATRPIUM/ALBUTEROL 0.5/2.5MG 3 ML NEBU. NEB SCH ×4 (07:41→19:58)
[2018-12-14] MEDS ORDERED: oxyCODONE IR 5 MG TABLET FT PRN (07:57)
[2018-12-14 07:58] LABS: BASE EXCESS ABG 4 mmol/L (-3-3); HCO3 ABG 26 mmol/L (21-28); PCO2 ABG 34 mmHg (35-46); PO2 ABG 61 mmHg (65-108); SAT O2 ABG 92 % (92-99)
[2018-12-14 07:59] LABS: FIO2 ABG 40
[2018-12-14] MEDS ORDERED: ACETAMINOPHEN 650 MG/20.3 ML SOLUTION. FT PRN (08:00)
[2018-12-14] MEDS: POTASSIUM CHLORIDE 20 MEQ/15 ML ORAL LIQUID. PEG SCH (08:33)
[2018-12-14] MEDS: SENNA LEAF EXTRACT 528 MG/15 ML ORAL SYRUP. FT SCH ×2 (08:33→20:49)
[2018-12-14] MEDS: FAMOTIDINE 20 MG/2 ML VIAL IVP SCH ×2 (08:33→20:48)
[2018-12-14] MEDS: CLOPIDOGREL BISULFATE 75 MG TABLET FT SCH (08:33)
[2018-12-14] MEDS: DOCUSATE 100 MG/10 ML SOLUTION. FT SCH ×2 (08:33→20:48)
[2018-12-14] MEDS: LEVOTHYROXINE 100 MCG TABLET FT SCH (08:34)
[2018-12-14] MEDS: FUROSEMIDE 40 MG/4 ML VIAL. IVP SCH (08:34)
[2018-12-14] MEDS: ASPIRIN CHEWABLE 81 MG TABLET. FT SCH (08:34)
[2018-12-14] MEDS: LISINOPRIL 20 MG TABLET FT SCH (08:34)
[2018-12-14] MEDS: ELECTROLYTE (ICU) PROTOCOL. MC SCH (08:36)
--- NOTE | 2018-12-14 08:37 | RAD ---
PORTABLE CHEST 1V Clinical indications: respiratory failure, lung infiltrates or pulmonary edema. Follow-up study. COMPARISON: December 13, 2018. Findings: There has been improvement in the bilateral lung infiltrates or pulmonary edema. Bilateral infiltrates and or pulmonary edema are still present. However, there is nonvisualization of the left hemidiaphragm in today's study which was not seen previously. This is consistent with increased left lung base consolidative infiltrate and/or pleural effusion. No right-sided pleural effusion is seen. No pneumothorax is evident. ET tube tip is located 1.5 cm above the level of the bella. NG tube is seen extending into at least the proximal body of the stomach. Vascular congestion has resolved. The heart size and mediastinum are stable. IMPRESSION: Improvement of bilateral lung infiltrates or pulmonary edema. However, there has been an increase in left lung base consolidation which could be due to infiltrate and/or pleural effusion. Resolution of vascular congestion. Electronically signed by: Yohan Webb MD (12/14/2018 8:34 AM) [facility] [id number]
--- NOTE | 2018-12-14 08:49 | PDOC ---
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 jaramillo recommendations greatly appreciated Continue with diuresis Further recommendations based on the clinical course History of Present Illness History of Present Illness Patient continues to be sedated on the ventilator. No acute distress, no acute events reported overnight as per nursing staff. We will continue to provide supportive measures the ICU Vitals Vitals Vital Signs Date Time Temp Pulse Resp B/P (MAP) Pulse Ox O2 Delivery O2 Flow Rate FiO2 12/14/18 08:34 63 158/61 12/14/18 08:00 24 95 Ventilator 12/14/18 07:00 99.8 99.8 Physical Exam Physical Exam Gen.: Obese currently on mechanical ventilation in no apparent distress Head: Normal shape atraumatic Eyes: Pupils equal reactive to light and accommodation, normal conjunctivae and lids Ears: Normal shape Nose: Normal shape no trauma Mouth: No exudates of the back of throat no thrush no lesions Neck: Supple no JVD no carotid bruit or lymphadenopathy no thyromegaly Chest: Lungs clear to auscultation with good inspiratory effort lower lung field crackles, no rales or rhonchi Cardiovascular: S1-S2 regular rhythm no murmurs gallops or rubs Abdomen: Bowel sounds present soft nontender no hepatosplenomegaly appreciated sign Extremities: No clubbing no cyanosis no edema peripheral pulses palpated bilaterally Neurological: Alert awake oriented in person time place and situation, cranial nerves II through XII intact, no motor or sensory deficits appreciated Psych: Appropriate mood, cooperative General: Other (intubated, sedated) Heart: Other (tele SB, distant heart tones) Lungs: Crackles Abdomen: Other (obese) Extremities: Normal pulses, Other (2+ bilateral LE edema ) Skin: No significant lesion Labs LABS Laboratory Tests Test 12/13/18 13:05 12/13/18 13:06 12/13/18 13:10 12/13/18 13:11 White Blood Count 12.3 x10^3/uL (4.0-11.0) Red Blood Count 4.04 x10^6/uL (4.30-5.70) Hemoglobin 12.1 g/dL (13.0-17.5) Hematocrit 38.2 % (39.0-53.0) Mean Corpuscular Volume 95 fL (79-100) Mean Corpuscular Hemoglobin 30 pg (25-35) Mean Corpuscular Hemoglobin Concent 32 g/dL (31-37) Red Cell Distribution Width 15.1 % (11.5-14.5) Platelet Count 222 x10^3/uL (140-400) Neutrophils (%) (Auto) 38 % (31-73) Lymphocytes (%) (Auto) 47 % (24-48) Monocytes (%) (Auto) 11 % (0-9) Eosinophils (%) (Auto) 3 % (0-3) Basophils (%) (Auto) 1 % (0-3) Neutrophils # (Auto) 4.7 x10^3uL (1.8-7.7) Lymphocytes # (Auto) 5.8 x10^3/uL (1.0-4.8) Monocytes # (Auto) 1.3 x10^3/uL (0.0-1.1) Eosinophils # (Auto) 0.4 x10^3/uL (0.0-0.7) Basophils # (Auto) 0.1 x10^3/uL (0.0-0.2) Prothrombin Time 16.0 SEC (11.7-14.0) Prothromb Time International Ratio 1.3 (0.8-1.1) Activated Partial Thromboplast Time 28 SEC (24-38) Sodium Level 138 mmol/L (136-145) Potassium Level 4.0 mmol/L (3.5-5.1) Chloride Level 102 mmol/L (98-107) Carbon Dioxide Level 23 mmol/L (21-32) Anion Gap 13 (6-14) 17 mmol/L (6-14) Blood Urea Nitrogen 25 mg/dL (8-26) Creatinine 1.6 mg/dL (0.7-1.3) Estimated GFR (Cockcroft-Gault) 42.7 BUN/Creatinine Ratio 16 (6-20) Glucose Level 396 mg/dL (70-99) 391 mg/dL (70-99) Calcium Level 8.7 mg/dL (8.5-10.1) Magnesium Level 2.0 mg/dL (1.8-2.4) Total Bilirubin 0.3 mg/dL (0.2-1.0) Aspartate Amino Transf (AST/SGOT) 22 U/L (15-37) Alanine Aminotransferase (ALT/SGPT) 20 U/L (16-63) Alkaline Phosphatase 63 U/L (46-116) Creatine Kinase 74 U/L (39-308) Creatine Kinase MB (Mass) 2.2 ng/mL (0.0-3.6) Creatine Kinase MB Relative Index % (0-4) Troponin I Quantitative < 0.017 ng/mL (0.000-0.055) SJ-[id number]-Type Natriuretic Peptide 514 pg/mL (0-124) Total Protein 8.1 g/dL (6.4-8.2) Albumin 3.4 g/dL (3.4-5.0) Albumin/Globulin Ratio 0.7 (1.0-1.7) Triglycerides Level 347 mg/dL (0-150) Cholesterol Level 218 mg/dL (0-200) LDL Cholesterol, Calculated 113 mg/dL (0-100) VLDL Cholesterol, Calculated 69 mg/dL (0-40) Non-HDL Cholesterol Calculated 182 mg/dL (0-129) HDL Cholesterol 36 mg/dL (40-60) Cholesterol/HDL Ratio 6.1 O2 Saturation 97 % (92-99) Arterial Blood pH 7.16 (7.35-7.45) Arterial Blood pCO2 at Patient Temp 66 mmHg (35-46) Arterial Blood pO2 at Patient Temp 114 mmHg (65-108) Arterial Blood HCO3 23 mmol/L (21-28) Arterial Blood Base Excess -7 mmol/L (-3-3) FiO2 100 Bedside Troponin I 0.02 ng/ml (<0.08) Bedside Hemoglobin 12.6 g/dL (14-18) Bedside Hematocrit 37 % (37-52) Bedside Sodium 140 mmol/L (135-145) Bedside Potassium 4.0 mmol/L (3.5-5.0) Bedside Chloride 104 mmol/L (98-110) Bedside Total CO2 24 mmol/L (23-32) Bedside Blood Urea Nitrogen 24 mg/dL (8-26) Bedside Creatinine 1.3 mg/dL (0.5-1.4) Bedside Ionized Calcium (Giuliana) 1.17 mmol/L (1.13-1.32) Test 12/13/18 13:20 12/13/18 16:00 12/13/18 16:35 12/13/18 19:58 Urine Collection Type U cath Urine Color Yellow Urine Clarity Clear Urine pH 5.5 Urine Specific Molino 1.015 Urine Protein 100 mg/dL (NEG-TRACE) Urine Glucose (UA) >=1000 mg/dL (NEG) Urine Ketones (Stick) Negative mg/dL (NEG) Urine Blood Small (NEG) Urine Nitrite Negative (NEG) Urine Bilirubin Negative (NEG) Urine Urobilinogen Dipstick 0.2 mg/dL (0.2 mg/dL) Urine Leukocyte Esterase Negative (NEG) Urine RBC 11-20 /HPF (0-2) Urine WBC 0 /HPF (0-4) Urine Amorphous Sediment Present /HPF Urine Bacteria 0 /HPF (0-FEW) Urine Hyaline Casts Moderate /HPF Urine Mucus Slight /LPF O2 Saturation 93 % (92-99) Arterial Blood pH 7.36 (7.35-7.45) Arterial Blood pCO2 at Patient Temp 48 mmHg (35-46) Arterial Blood pO2 at Patient Temp 71 mmHg (65-108) Arterial Blood HCO3 26 mmol/L (21-28) Arterial Blood Base Excess 0 mmol/L (-3-3) FiO2 60 Troponin I Quantitative 1.143 ng/mL (0.000-0.055) 3.573 ng/mL (0.000-0.055) Thyroid Stimulating Hormone (TSH) 3.085 uIU/mL (0.358-3.74) Test 12/13/18 23:31 12/14/18 05:00 12/14/18 07:40 Glucose (Fingerstick) 192 mg/dL (70-99) White Blood Count 7.3 x10^3/uL (4.0-11.0) Red Blood Count 3.36 x10^6/uL (4.30-5.70) Hemoglobin 10.2 g/dL (13.0-17.5) Hematocrit 30.9 % (39.0-53.0) Mean Corpuscular Volume 92 fL (79-100) Mean Corpuscular Hemoglobin 30 pg (25-35) Mean Corpuscular Hemoglobin Concent 33 g/dL (31-37) Red Cell Distribution Width 15.2 % (11.5-14.5) Platelet Count 165 x10^3/uL (140-400) Neutrophils (%) (Auto) 68 % (31-73) Lymphocytes (%) (Auto) 19 % (24-48) Monocytes (%) (Auto) 11 % (0-9) Eosinophils (%) (Auto) 1 % (0-3) Basophils (%) (Auto) 1 % (0-3) Neutrophils # (Auto) 5.0 x10^3uL (1.8-7.7) Lymphocytes # (Auto) 1.4 x10^3/uL (1.0-4.8) Monocytes # (Auto) 0.8 x10^3/uL (0.0-1.1) Eosinophils # (Auto) 0.1 x10^3/uL (0.0-0.7) Basophils # (Auto) 0.0 x10^3/uL (0.0-0.2) Heparin Anti-Xa Act, Unfractionated 0.27 IU/mL (0.30-0.70) Sodium Level 142 mmol/L (136-145) Potassium Level 3.6 mmol/L (3.5-5.1) Chloride Level 102 mmol/L (98-107) Carbon Dioxide Level 29 mmol/L (21-32) Anion Gap 11 (6-14) Blood Urea Nitrogen 23 mg/dL (8-26) Creatinine 1.4 mg/dL (0.7-1.3) Estimated GFR (Cockcroft-Gault) 49.8 Glucose Level 168 mg/dL (70-99) Calcium Level 8.6 mg/dL (8.5-10.1) O2 Saturation 92 % (92-99) Arterial Blood pH 7.51 (7.35-7.45) Arterial Blood pCO2 at Patient Temp 34 mmHg (35-46) Arterial Blood pO2 at Patient Temp 61 mmHg (65-108) Arterial Blood HCO3 26 mmol/L (21-28) Arterial Blood Base Excess 4 mmol/L (-3-3) FiO2 40 Review of Systems Review of Systems Unable to assess due to ET tube Assessment and Plan Assessmemt and Plan Problems Medical Problems: (1) CHF (congestive heart failure) Status: Acute (2) Respiratory failure Status: Acute Comment Review of Relevant I have reviewed the following items luis (where applicable) has been applied. Labs Laboratory Tests Test 12/13/18 13:05 12/13/18 13:06 12/13/18 13:10 12/13/18 13:11 White Blood Count 12.3 x10^3/uL (4.0-11.0) Red Blood Count 4.04 x10^6/uL (4.30-5.70) Hemoglobin 12.1 g/dL (13.0-17.5) Hematocrit 38.2 % (39.0-53.0) Mean Corpuscular Volume 95 fL (79-100) Mean Corpuscular Hemoglobin 30 pg (25-35) Mean Corpuscular Hemoglobin Concent 32 g/dL (31-37) Red Cell Distribution Width 15.1 % (11.5-14.5) Platelet Count 222 x10^3/uL (140-400) Neutrophils (%) (Auto) 38 % (31-73) Lymphocytes (%) (Auto) 47 % (24-48) Monocytes (%) (Auto) 11 % (0-9) Eosinophils (%) (Auto) 3 % (0-3) Basophils (%) (Auto) 1 % (0-3) Neutrophils # (Auto) 4.7 x10^3uL (1.8-7.7) Lymphocytes # (Auto) 5.8 x10^3/uL (1.0-4.8) Monocytes # (Auto) 1.3 x10^3/uL (0.0-1.1) Eosinophils # (Auto) 0.4 x10^3/uL (0.0-0.7) Basophils # (Auto) 0.1 x10^3/uL (0.0-0.2) Prothrombin Time 16.0 SEC (11.7-14.0) Prothromb Time International Ratio 1.3 (0.8-1.1) Activated Partial Thromboplast Time 28 SEC (24-38) Sodium Level 138 mmol/L (136-145) Potassium Level 4.0 mmol/L (3.5-5.1) Chloride Level 102 mmol/L (98-107) Carbon Dioxide Level 23 mmol/L (21-32) Anion Gap 13 (6-14) 17 mmol/L (6-14) Blood Urea Nitrogen 25 mg/dL (8-26) Creatinine 1.6 mg/dL (0.7-1.3) Estimated GFR (Cockcroft-Gault) 42.7 BUN/Creatinine Ratio 16 (6-20) Glucose Level 396 mg/dL (70-99) 391 mg/dL (70-99) Calcium Level 8.7 mg/dL (8.5-10.1) Magnesium Level 2.0 mg/dL (1.8-2.4) Total Bilirubin 0.3 mg/dL (0.2-1.0) Aspartate Amino Transf (AST/SGOT) 22 U/L (15-37) Alanine Aminotransferase (ALT/SGPT) 20 U/L (16-63) Alkaline Phosphatase 63 U/L (46-116) Creatine Kinase 74 U/L (39-308) Creatine Kinase MB (Mass) 2.2 ng/mL (0.0-3.6) Creatine Kinase MB Relative Index % (0-4) Troponin I Quantitative < 0.017 ng/mL (0.000-0.055) [id number]-Type Natriuretic Peptide 514 pg/mL (0-124) Total Protein 8.1 g/dL (6.4-8.2) Albumin 3.4 g/dL (3.4-5.0) Albumin/Globulin Ratio 0.7 (1.0-1.7) Triglycerides Level 347 mg/dL (0-150) Cholesterol Level 218 mg/dL (0-200) LDL Cholesterol, Calculated 113 mg/dL (0-100) VLDL Cholesterol, Calculated 69 mg/dL (0-40) Non-HDL Cholesterol Calculated 182 mg/dL (0-129) HDL Cholesterol 36 mg/dL (40-60) Cholesterol/HDL Ratio 6.1 O2 Saturation 97 % (92-99) Arterial Blood pH 7.16 (7.35-7.45) Arterial Blood pCO2 at Patient Temp 66 mmHg (35-46) Arterial Blood pO2 at Patient Temp 114 mmHg (65-108) Arterial Blood HCO3 23 mmol/L (21-28) Arterial Blood Base Excess -7 mmol/L (-3-3) FiO2 100 Bedside Troponin I 0.02 ng/ml (<0.08) Bedside Hemoglobin 12.6 g/dL (14-18) Bedside Hematocrit 37 % (37-52) Bedside Sodium 140 mmol/L (135-145) Bedside Potassium 4.0 mmol/L (3.5-5.0) Bedside Chloride 104 mmol/L (98-110) Bedside Total CO2 24 mmol/L (23-32) Bedside Blood Urea Nitrogen 24 mg/dL (8-26) Bedside Creatinine 1.3 mg/dL (0.5-1.4) Bedside Ionized Calcium (Giuliana) 1.17 mmol/L (1.13-1.32) Test 12/13/18 13:20 12/13/18 16:00 12/13/18 16:35 12/13/18 19:58 Urine Collection Type U cath Urine Color Yellow Urine Clarity Clear Urine pH 5.5 Urine Specific Molino 1.015 Urine Protein 100 mg/dL (NEG-TRACE) Urine Glucose (UA) >=1000 mg/dL (NEG) Urine Ketones (Stick) Negative mg/dL (NEG) Urine Blood Small (NEG) Urine Nitrite Negative (NEG) Urine Bilirubin Negative (NEG) Urine Urobilinogen Dipstick 0.2 mg/dL (0.2 mg/dL) Urine Leukocyte Esterase Negative (NEG) Urine RBC 11-20 /HPF (0-2) Urine WBC 0 /HPF (0-4) Urine Amorphous Sediment Present /HPF Urine Bacteria 0 /HPF (0-FEW) Urine Hyaline Casts Moderate /HPF Urine Mucus Slight /LPF O2 Saturation 93 % (92-99) Arterial Blood pH 7.36 (7.35-7.45) Arterial Blood pCO2 at Patient Temp 48 mmHg (35-46) Arterial Blood pO2 at Patient Temp 71 mmHg (65-108) Arterial Blood HCO3 26 mmol/L (21-28) Arterial Blood Base Excess 0 mmol/L (-3-3) FiO2 60 Troponin I Quantitative 1.143 ng/mL (0.000-0.055) 3.573 ng/mL (0.000-0.055) Thyroid Stimulating Hormone (TSH) 3.085 uIU/mL (0.358-3.74) Test 12/13/18 23:31 12/14/18 05:00 12/14/18 07:40 Glucose (Fingerstick) 192 mg/dL (70-99) White Blood Count 7.3 x10^3/uL (4.0-11.0) Red Blood Count 3.36 x10^6/uL (4.30-5.70) Hemoglobin 10.2 g/dL (13.0-17.5) Hematocrit 30.9 % (39.0-53.0) Mean Corpuscular Volume 92 fL (79-100) Mean Corpuscular Hemoglobin 30 pg (25-35) Mean Corpuscular Hemoglobin Concent 33 g/dL (31-37) Red Cell Distribution Width 15.2 % (11.5-14.5) Platelet Count 165 x10^3/uL (140-400) Neutrophils (%) (Auto) 68 % (31-73) Lymphocytes (%) (Auto) 19 % (24-48) Monocytes (%) (Auto) 11 % (0-9) Eosinophils (%) (Auto) 1 % (0-3) Basophils (%) (Auto) 1 % (0-3) Neutrophils # (Auto) 5.0 x10^3uL (1.8-7.7) Lymphocytes # (Auto) 1.4 x10^3/uL (1.0-4.8) Monocytes # (Auto) 0.8 x10^3/uL (0.0-1.1) Eosinophils # (Auto) 0.1 x10^3/uL (0.0-0.7) Basophils # (Auto) 0.0 x10^3/uL (0.0-0.2) Heparin Anti-Xa Act, Unfractionated 0.27 IU/mL (0.30-0.70) Sodium Level 142 mmol/L (136-145) Potassium Level 3.6 mmol/L (3.5-5.1) Chloride Level 102 mmol/L (98-107) Carbon Dioxide Level 29 mmol/L (21-32) Anion Gap 11 (6-14) Blood Urea Nitrogen 23 mg/dL (8-26) Creatinine 1.4 mg/dL (0.7-1.3) Estimated GFR (Cockcroft-Gault) 49.8 Glucose Level 168 mg/dL (70-99) Calcium Level 8.6 mg/dL (8.5-10.1) O2 Saturation 92 % (92-99) Arterial Blood pH 7.51 (7.35-7.45) Arterial Blood pCO2 at Patient Temp 34 mmHg (35-46) Arterial Blood pO2 at Patient Temp 61 mmHg (65-108) Arterial Blood HCO3 26 mmol/L (21-28) Arterial Blood Base Excess 4 mmol/L (-3-3) FiO2 40 Laboratory Tests Test 12/13/18 13:05 12/13/18 13:06 12/13/18 13:10 12/13/18 13:11 White Blood Count 12.3 x10^3/uL (4.0-11.0) Red Blood Count 4.04 x10^6/uL (4.30-5.70) Hemoglobin 12.1 g/dL (13.0-17.5) Hematocrit 38.2 % (39.0-53.0) Mean Corpuscular Volume 95 fL (79-100) Mean Corpuscular Hemoglobin 30 pg (25-35) Mean Corpuscular Hemoglobin Concent 32 g/dL (31-37) Red Cell Distribution Width 15.1 % (11.5-14.5) Platelet Count 222 x10^3/uL (140-400) Neutrophils (%) (Auto) 38 % (31-73) Lymphocytes (%) (Auto) 47 % (24-48) Monocytes (%) (Auto) 11 % (0-9) Eosinophils (%) (Auto) 3 % (0-3) Basophils (%) (Auto) 1 % (0-3) Neutrophils # (Auto) 4.7 x10^3uL (1.8-7.7) Lymphocytes # (Auto) 5.8 x10^3/uL (1.0-4.8) Monocytes # (Auto) 1.3 x10^3/uL (0.0-1.1) Eosinophils # (Auto) 0.4 x10^3/uL (0.0-0.7) Basophils # (Auto) 0.1 x10^3/uL (0.0-0.2) Prothrombin Time 16.0 SEC (11.7-14.0) Prothromb Time International Ratio 1.3 (0.8-1.1) Activated Partial Thromboplast Time 28 SEC (24-38) Sodium Level 138 mmol/L (136-145) Potassium Level 4.0 mmol/L (3.5-5.1) Chloride Level 102 mmol/L (98-107) Carbon Dioxide Level 23 mmol/L (21-32) Anion Gap 13 (6-14) 17 mmol/L (6-14) Blood Urea Nitrogen 25 mg/dL (8-26) Creatinine 1.6 mg/dL (0.7-1.3) Estimated GFR (Cockcroft-Gault) 42.7 BUN/Creatinine Ratio 16 (6-20) Glucose Level 396 mg/dL (70-99) 391 mg/dL (70-99) Calcium Level 8.7 mg/dL (8.5-10.1) Magnesium Level 2.0 mg/dL (1.8-2.4) Total Bilirubin 0.3 mg/dL (0.2-1.0) Aspartate Amino Transf (AST/SGOT) 22 U/L (15-37) Alanine Aminotransferase (ALT/SGPT) 20 U/L (16-63) Alkaline Phosphatase 63 U/L (46-116) Creatine Kinase 74 U/L (39-308) Creatine Kinase MB (Mass) 2.2 ng/mL (0.0-3.6) Creatine Kinase MB Relative Index % (0-4) Troponin I Quantitative < 0.017 ng/mL (0.000-0.055) XS-Vvm-Y-Type Natriuretic Peptide 514 pg/mL (0-124) Total Protein 8.1 g/dL (6.4-8.2) Albumin 3.4 g/dL (3.4-5.0) Albumin/Globulin Ratio 0.7 (1.0-1.7) Triglycerides Level 347 mg/dL (0-150) Cholesterol Level 218 mg/dL (0-200) LDL Cholesterol, Calculated 113 mg/dL (0-100) VLDL Cholesterol, Calculated 69 mg/dL (0-40) Non-HDL Cholesterol Calculated 182 mg/dL (0-129) HDL Cholesterol 36 mg/dL (40-60) Cholesterol/HDL Ratio 6.1 O2 Saturation 97 % (92-99) Arterial Blood pH 7.16 (7.35-7.45) Arterial Blood pCO2 at Patient Temp 66 mmHg (35-46) Arterial Blood pO2 at Patient Temp 114 mmHg (65-108) Arterial Blood HCO3 23 mmol/L (21-28) Arterial Blood Base Excess -7 mmol/L (-3-3) FiO2 100 Bedside Troponin I 0.02 ng/ml (<0.08) Bedside Hemoglobin 12.6 g/dL (14-18) Bedside Hematocrit 37 % (37-52) Bedside Sodium 140 mmol/L (135-145) Bedside Potassium 4.0 mmol/L (3.5-5.0) Bedside Chloride 104 mmol/L (98-110) Bedside Total CO2 24 mmol/L (23-32) Bedside Blood Urea Nitrogen 24 mg/dL (8-26) Bedside Creatinine 1.3 mg/dL (0.5-1.4) Bedside Ionized Calcium (Giuliana) 1.17 mmol/L (1.13-1.32) Test 12/13/18 13:20 12/13/18 16:00 12/13/18 16:35 12/13/18 19:58 Urine Collection Type U cath Urine Color Yellow Urine Clarity Clear Urine pH 5.5 Urine Specific Molino 1.015 Urine Protein 100 mg/dL (NEG-TRACE) Urine Glucose (UA) >=1000 mg/dL (NEG) Urine Ketones (Stick) Negative mg/dL (NEG) Urine Blood Small (NEG) Urine Nitrite Negative (NEG) Urine Bilirubin Negative (NEG) Urine Urobilinogen Dipstick 0.2 mg/dL (0.2 mg/dL) Urine Leukocyte Esterase Negative (NEG) Urine RBC 11-20 /HPF (0-2) Urine WBC 0 /HPF (0-4) Urine Amorphous Sediment Present /HPF Urine Bacteria 0 /HPF (0-FEW) Urine Hyaline Casts Moderate /HPF Urine Mucus Slight /LPF O2 Saturation 93 % (92-99) Arterial Blood pH 7.36 (7.35-7.45) Arterial Blood pCO2 at Patient Temp 48 mmHg (35-46) Arterial Blood pO2 at Patient Temp 71 mmHg (65-108) Arterial Blood HCO3 26 mmol/L (21-28) Arterial Blood Base Excess 0 mmol/L (-3-3) FiO2 60 Troponin I Quantitative 1.143 ng/mL (0.000-0.055) 3.573 ng/mL (0.000-0.055) Thyroid Stimulating Hormone (TSH) 3.085 uIU/mL (0.358-3.74) Test 12/13/18 23:31 12/14/18 05:00 12/14/18 07:40 Glucose (Fingerstick) 192 mg/dL (70-99) White Blood Count 7.3 x10^3/uL (4.0-11.0) Red Blood Count 3.36 x10^6/uL (4.30-5.70) Hemoglobin 10.2 g/dL (13.0-17.5) Hematocrit 30.9 % (39.0-53.0) Mean Corpuscular Volume 92 fL (79-100) Mean Corpuscular Hemoglobin 30 pg (25-35) Mean Corpuscular Hemoglobin Concent 33 g/dL (31-37) Red Cell Distribution Width 15.2 % (11.5-14.5) Platelet Count 165 x10^3/uL (140-400) Neutrophils (%) (Auto) 68 % (31-73) Lymphocytes (%) (Auto) 19 % (24-48) Monocytes (%) (Auto) 11 % (0-9) Eosinophils (%) (Auto) 1 % (0-3) Basophils (%) (Auto) 1 % (0-3) Neutrophils # (Auto) 5.0 x10^3uL (1.8-7.7) Lymphocytes # (Auto) 1.4 x10^3/uL (1.0-4.8) Monocytes # (Auto) 0.8 x10^3/uL (0.0-1.1) Eosinophils # (Auto) 0.1 x10^3/uL (0.0-0.7) Basophils # (Auto) 0.0 x10^3/uL (0.0-0.2) Heparin Anti-Xa Act, Unfractionated 0.27 IU/mL (0.30-0.70) Sodium Level 142 mmol/L (136-145) Potassium Level 3.6 mmol/L (3.5-5.1) Chloride Level 102 mmol/L (98-107) Carbon Dioxide Level 29 mmol/L (21-32) Anion Gap 11 (6-14) Blood Urea Nitrogen 23 mg/dL (8-26) Creatinine 1.4 mg/dL (0.7-1.3) Estimated GFR (Cockcroft-Gault) 49.8 Glucose Level 168 mg/dL (70-99) Calcium Level 8.6 mg/dL (8.5-10.1) O2 Saturation 92 % (92-99) Arterial Blood pH 7.51 (7.35-7.45) Arterial Blood pCO2 at Patient Temp 34 mmHg (35-46) Arterial Blood pO2 at Patient Temp 61 mmHg (65-108) Arterial Blood HCO3 26 mmol/L (21-28) Arterial Blood Base Excess 4 mmol/L (-3-3) FiO2 40 Medications Current Medications Iodixanol (Visipaque 320) 100 ml STK-MED ONCE .ROUTE ; Start 12/13/18 at 12:53; Stop 12/13/18 at 12:54; Status DC Lidocaine HCl (Lidocaine 1% 20ml Vial) 20 ml STK-MED ONCE .ROUTE ; Start at 12:53; Stop 12/13/18 at 12:54; Status DC Heparin Sodium/ Sodium Chloride 1,000 ml @ As Directed STK-MED ONCE .ROUTE ; Start 12/13/18 at 12:53; Stop 12/13/18 at 12:54; Status DC Methylprednisolone Sodium Succinate (SOLU-Medrol 125MG VIAL) 125 mg STK-MED ONCE .ROUTE ; Start 12/13/18 at 12:57; Stop 12/13/18 at 12:58; Status DC Fentanyl Citrate (Fentanyl 2ml Vial) 100 mcg STK-MED ONCE .ROUTE ; Start at 12:57; Stop 12/13/18 at 12:58; Status DC Midazolam HCl (Versed) 2 mg STK-MED ONCE .ROUTE ; Start 12/13/18 at 12:57; Stop 12/13/18 at 12:58; Status DC Heparin Sodium (Porcine) (Heparin Sodium) 10,000 unit STK-MED ONCE .ROUTE ; Start 12/13/18 at 12:57; Stop 12/13/18 at 12:58; Status DC Verapamil HCl (Verapamil) 5 mg STK-MED ONCE .ROUTE ; Start 12/13/18 at 12:57; Stop 12/13/18 at 12:58; Status DC Famotidine (Pepcid Vial) 20 mg STK-MED ONCE .ROUTE ; Start 12/13/18 at 12:57; Stop 12/13/18 at 12:58; Status DC Diphenhydramine HCl (Benadryl) 50 mg STK-MED ONCE .ROUTE ; Start 12/13/18 at 12: 57; Stop 12/13/18 at 12:58; Status DC Nitroglycerin (Nitroglycerin) 200 mcg STK-MED ONCE .ROUTE ; Start 12/13/18 at 12 :57; Stop 12/13/18 at 12:58; Status DC Nitroglycerin/ Dextrose 250 ml @ As Directed STK-MED ONCE IV ; Start 12/13/18 at 13:04; Stop 12/13/18 at 13:05; Status DC Furosemide (Lasix) 100 mg STK-MED ONCE .ROUTE ; Start 12/13/18 at 13:07; Stop at 13:08; Status DC Nitroglycerin/ Dextrose 250 ml @ 0 mls/hr 1X ONCE IV Last administered on 12/13at 13:11; Start 12/13/18 at 13:15; Stop 12/13/18 at 13:16; Status DC Furosemide (Lasix) 80 mg 1X ONCE IVP Last administered on 12/13/18at 13:12; Start 12/13/18 at 13:15; Stop 12/13/18 at 13:16; Status DC Propofol 50 ml @ As Directed STK-MED ONCE IV ; Start 12/13/18 at 13:25; Stop at 13:26; Status DC Propofol 50 ml @ 1.857 mls/ hr 1X ONCE IV Last administered on 12/13/18at 13: 31; Start 12/13/18 at 13:30; Stop 12/13/18 at 21:10; Status DC Oxycodone HCl (Roxicodone) 5 mg PRN Q3HRS PRN PO MODERATE-SEVERE PAIN; Start at 14:15; Stop 12/14/18 at 07:57; Status DC Acetaminophen (Tylenol) 650 mg PRN Q6HRS PRN PO Headaches, Temp > 101.5'; Start 12/13/18 at 14:15; Stop 12/14/18 at 07:56; Status DC Lorazepam (Ativan) 0.5 mg PRN Q6HRS PRN IV ANXIETY / AGITATION; Start 12/13/18 at 14:15 Ondansetron HCl (Zofran) 4 mg PRN Q6HRS PRN IV NAUSEA/VOMITING; Start 12/13/18 at 14:15 Famotidine (Pepcid Vial) 20 mg BID IVP Last administered on 12/14/18 08:33; Start 12/13/18 at 21:00 Info ([facility] Electrolyte Protocol) 1 ea DAILY MC ; Start 12/14/18 at 09:00 Heparin Sodium (Porcine) (Heparin Sodium) 5,000 unit Q8HRS SQ ; Start 12/13/18 at 22:00; Stop 12/13/18 at 22:37; Status DC Sodium Chloride (Normal Saline Flush) 3 ml QSHIFT PRN IV AFTER MEDS AND BLOOD DRAWS; Start 12/13/18 at 14:15 Morphine Sulfate (Morphine Sulfate) 2 mg PRN Q1HR PRN IV PAIN MILD TO MOD; Start 12/13/18 at 14:15 Senna/Docusate Sodium (Senna Plus) 1 tab BID PO Last administered on 12/13/18 22:51; Start 12/13/18 at 21:00; Stop 12/14/18 at 08:00; Status DC Amlodipine Besylate (Norvasc) 10 mg DAILY PO Last administered on 12/14/18 08: 34; Start 12/14/18 at 09:00 Aspirin (Children'S Aspirin) 81 mg DAILY FT Last administered on 12/14/18 08: 34; Start 12/14/18 at 09:00 Clopidogrel Bisulfate (Plavix) 75 mg DAILY FT Last administered on 12/14/18 08 :33; Start 12/14/18 at 09:00 Furosemide (Lasix) 40 mg DAILY PO ; Start 12/14/18 at 09:00; Stop 12/14/18 at 09 :00; Status DC Insulin Glargine (Lantus) 70 units QHS SQ Last administered on 12/13/18at 23:32 ; Start 12/13/18 at 21:00 Lisinopril (Prinivil) 40 mg DAILY FT Last administered on 12/14/18 08:34; Start 12/14/18 at 09:00 Metoprolol Tartrate (Lopressor) 25 mg BID PO ; Start 12/13/18 at 21:00; Stop at 21:00; Status DC Nitroglycerin (Nitrostat) 0.4 mg PRN Q5MIN PRN SL CHEST PAIN; Start 12/13/18 at 14:15 Potassium Chloride (Klor-Con) 20 meq DAILY PO ; Start 12/14/18 at 09:00; Stop at 09:00; Status DC Levothyroxine Sodium (Synthroid) 200 mcg DAILY06 PO ; Start 12/14/18 at 06:00; Stop 12/14/18 at 07:56; Status DC Atorvastatin Calcium (Lipitor) 10 mg QHS PO Last administered on 12/13/18at 22: 51; Start 12/13/18 at 21:00 Enoxaparin Sodium (Lovenox 40mg Syringe) 40 mg Q24H SQ ; Start 12/13/18 at 14:30 ; Stop 12/13/18 at 14:30; Status DC Famotidine (Pepcid Vial) 20 mg QHS IVP ; Start 12/13/18 at 21:00; Stop 12/13/18 at 21:00; Status DC Albuterol/ Ipratropium (Duoneb) 3 ml RTQID NEB Last administered on 12/14/18at 07:41; Start 12/13/18 at 16:00 Etomidate (Amidate) 20 mg STK-MED ONCE IV ; Start 12/13/18 at 15:01; Stop at 15:02; Status DC Succinylcholine Chloride (Anectine) 200 mg STK-MED ONCE .ROUTE ; Start 12/13/18 at 15:02; Stop 12/13/18 at 15:03; Status DC Propofol 100 ml @ 1.857 mls/ hr CONT PRN IV SEE I/O RECORD Last administered on 12/14/18 06:45; Start 12/13/18 at 15:15 Furosemide (Lasix) 40 mg DAILY IVP Last administered on 12/14/18 08:34; Start 12/14/18 at 09:00 Fentanyl Citrate (Fentanyl 2ml Vial) 50 mcg PRN Q2HR PRN IV PAIN SEVERE Last administered on 12/14/18 03:50; Start 12/13/18 at 19:15 Heparin Sodium/ Dextrose 500 ml @ 0 mls/hr CONT PRN IV SEE I/O RECORD Last administered on 12/13/18at 22:55; Start 12/13/18 at 22:45 Heparin Sodium (Porcine) (Heparin Sodium) 3,300 unit PRN Q6HRS PRN IV FOR UFH LEVEL LESS THAN 0.2 Last administered on 3/18/19at 22:50; Start 12/13/18 at 22: 45 Info (Anti-Coagulation Monitoring By Pharmacy) 1 each PRN DAILY PRN MC SEE COMMENTS Last administered on 12/14/18 01:46; Start 12/13/18 at 22:45 Acetaminophen (Tylenol) 650 mg PRN Q6HRS PRN FT Headaches, Temp > 101.5'; Start 12/14/18 at 08:00 Levothyroxine Sodium (Synthroid) 200 mcg DAILY06 FT Last administered on at 08:34; Start 12/14/18 at 07:56 Oxycodone HCl (Roxicodone) 5 mg PRN Q3HRS PRN FT MODERATE-SEVERE PAIN; Start at 07:57 Potassium Chloride (KCl Oral Soln) 20 meq DAILY PEG Last administered on 08:33; Start 12/14/18 at 09:00 Docusate Sodium (Colace Solution) 100 mg BID FT Last administered on 12/14/18 08:33; Start 12/14/18 at 09:00 Senna (Senna Oral Syrup) 528 mg BID FT Last administered on 12/14/18 08:33; Start 12/14/18 at 09:00 Active Scripts Active Reported Janumet 50-1,000 Mg Tablet (Sitagliptin Phos/Metformin Hcl) 1 Each Tablet 2 Tab PO QEVNG Clopidogrel (Clopidogrel Bisulfate) 75 Mg Tablet 1 Tab PO DAILY Levothyroxine Sodium 200 Mcg Tablet 1 Tab PO DAILY Lisinopril 40 Mg Tablet 40 Mg PO DAILY Klor-Con M20 (Potassium Chloride) 20 Meq Tab.er.prt 20 Meq PO DAILY Metformin Hcl Er (Metformin Hcl) 1,000 Mg Tab.er.24 1 Tab PO BID NITROGLYCERIN SubLingual (Nitroglycerin) 0.4 Mg Tab.subl 0.4 Mg SL PRN Q5MIN PRN Glimepiride 4 Mg Tablet 1 Tab PO DAILY Lantus Solostar (Insulin Glargine,Hum.rec.anlog) 100 Unit/1 Ml Insuln.pen 70 Unit SQ QHS Pravastatin Sodium 40 Mg Tablet 1 Tab PO QHS Amlodipine Besylate 10 Mg Tablet 10 Mg PO DAILY Aspir 81 (Aspirin) 81 Mg Tablet.dr 1 Tab PO DAILY Metoprolol Tartrate 25 Mg Tablet 1 Tab PO BID Furosemide 40 Mg Tablet 1 Tab PO DAILY Vitals/I & O Vital Sign - Last 24 Hours 12/13/18 12/13/18 12/13/18 12/13/18 12:50 13:00 13:06 13:10 Temp 96.3 96.3 Pulse 115 110 108 Resp 20 20 20 B/P (MAP) 155/98 (117) 164/91 (115) 178/84 (115) Pulse Ox 97 96 92 95 O2 Delivery BiPAP/CPAP Ventilator Ventilator 12/13/18 12/13/18 12/13/18 12/13/18 13:20 13:25 13:30 13:35 Pulse 108 112 108 84 Resp 20 20 20 20 B/P (MAP) 145/90 (108) 197/90 (125) 186/81 (116) 159/73 (101) Pulse Ox 98 99 100 100 O2 Delivery Ventilator Ventilator 12/13/18 12/13/18 12/13/18 12/13/18 13:41 13:50 13:59 14:04 Pulse 66 64 60 Resp 20 20 20 B/P (MAP) 128/70 (89) 114/61 (78) 138/63 (88) Pulse Ox 100 100 100 98 O2 Delivery Ventilator Ventilator 12/13/18 12/13/18 12/13/18 12/13/18 14:10 14:20 14:30 14:40 Pulse 60 58 56 58 Resp 20 20 20 20 B/P (MAP) 149/69 (95) 136/61 (86) 154/65 (94) 122/67 (85) Pulse Ox 100 100 100 100 O2 Delivery Ventilator Ventilator Ventilator 12/13/18 12/13/18 12/13/18 12/13/18 14:45 15:00 15:00 15:15 Temp 97.3 97.3 Pulse 62 62 51 Resp 24 24 24 B/P (MAP) 140/71 (94) 150/74 (99) 111/55 (73) Pulse Ox 99 99 96 O2 Delivery Ventilator Ventilator Mechanical Ventilator Ventilator 12/13/18 12/13/18 12/13/18 12/13/18 15:30 15:58 16:00 17:00 Pulse 50 47 49 Resp 24 24 24 B/P (MAP) 123/60 (81) 114/68 (83) 110/48 (68) Pulse Ox 97 97 97 96 O2 Delivery Ventilator Ventilator Ventilator Ventilator 12/13/18 12/13/18 12/13/18 12/13/18 18:00 19:00 19:18 19:22 Pulse 49 57 Resp 24 24 16 B/P (MAP) 117/55 (75) 139/61 (87) Pulse Ox 97 97 97 O2 Delivery Ventilator Ventilator Ventilator Ventilator 12/13/18 12/13/18 12/13/18 12/13/18 20:00 20:00 21:00 21:37 Temp 97.6 97.6 Pulse 48 52 Resp 24 24 B/P (MAP) 107/48 (67) 131/69 (89) Pulse Ox 94 98 97 O2 Delivery Mechanical Ventilator Ventilator Ventilator Ventilator 12/13/18 12/13/18 12/13/18 12/14/18 22:00 23:00 23:43 00:00 Temp 98.0 98.0 Pulse 50 58 52 Resp 24 24 24 B/P (MAP) 142/63 (89) 158/100 (119) 123/55 (77) Pulse Ox 97 96 97 96 O2 Delivery Ventilator Ventilator Ventilator Ventilator 12/14/18 12/14/18 12/14/18 12/14/18 00:00 01:00 01:30 02:00 Pulse 51 52 Resp 24 24 B/P (MAP) 111/53 (72) 130/57 (81) Pulse Ox 96 96 98 O2 Delivery Mechanical Ventilator Ventilator Ventilator Ventilator 12/14/18 12/14/18 12/14/18 12/14/18 03:00 04:00 04:00 04:05 Temp 99.1 99.1 Pulse 63 64 Resp 24 24 B/P (MAP) 161/62 (95) 154/57 (89) Pulse Ox 98 95 96 O2 Delivery Ventilator Mechanical Ventilator Ventilator Ventilator 12/14/18 12/14/18 12/14/18 12/14/18 05:00 05:55 06:00 07:00 Temp 99.8 99.8 Pulse 54 56 66 Resp 24 24 24 B/P (MAP) 120/49 (72) 131/60 (83) 159/61 (93) Pulse Ox 94 96 95 95 O2 Delivery Ventilator Ventilator Ventilator Ventilator 12/14/18 12/14/18 12/14/18 12/14/18 07:41 07:58 08:00 08:34 Pulse 63 63 Resp 24 B/P (MAP) 158/61 (93) 158/61 Pulse Ox 97 95 O2 Delivery Ventilator Mechanical Ventilator Ventilator 12/14/18 08:34 Pulse 63 B/P (MAP) 158/61 Intake and Output 12/13/18 12/13/18 12/14/18 15:00 23:00 07:00 Intake Total 152 ml 654 ml Output Total 800 ml 1550 ml 1070 ml Balance -800 ml -1398 ml -416 ml YIMI GE MD Dec 14, 2018 08:49
[2018-12-14] MEDS ORDERED: POTASSIUM CHLORIDE 20 MEQ TABLET.ER. PO SCH (09:00)
[2018-12-14] MEDS ORDERED: amLODIPine BESYLATE 10 MG TABLET PO SCH (09:00)
[2018-12-14] MEDS ORDERED: FUROSEMIDE 40 MG TABLET. PO SCH (09:00)
[2018-12-14 11:02] LABS: MAGNESIUM 1.9 mg/dL (1.8-2.4); PHOSPHORUS 3.7 mg/dL (2.6-4.7)
--- NOTE | 2018-12-14 11:08 | CARD ---
MR#: [id number] Date of Study: 12/14/2018 Ordering Physician: SIMON PATEL, Referring Physician: YIMI GE Tech: Zahida March RDCS APPROVED REPORT EXAM: Two-dimensional and M-mode echocardiogram with Doppler and color Doppler. Other Information Quality : Technically Limited Technically limited study due to body habitus. INDICATION Cardiac Disease: CAD Congestive Heart Failure RISK FACTORS Obesity 2D DIMENSIONS RVDd2.3 (2.9-3.5cm)Left Atrium(2D)4.3 (1.6-4.0cm) IVSd1.1 (0.7-1.1cm)Aortic Root(2D)3.2 (2.0-3.7cm) LVDd6.5 (3.9-5.9cm)LVOT Diameter2.2 (1.8-2.4cm) PWd1.1 (0.7-1.1cm)LVDs5.1 (2.5-4.0cm) FS (%) 21.6 %SV92.8 ml LVEF(%)42.8 (>50%) Aortic Valve AoV Peak Kevin.213.1cm/sAoV VTI42.9cm AO Peak GR.18.2mmHgLVOT VTI 17.06cm AO Mean GR.11mmHgAVA (VTI)1.50cm2 Mitral Valve MV E Opyiimva201.3cm/sMV DECEL UOHY120rv MV A Ufvtewas52.4cm/sE/A Ratio1.2 TDI Lateral E' P. V3.09cm/sMedial E' P. V3.99cm/s E/Lateral E'38.6E/Medial E'29.9 Pulmonary Vein S1 Jcvxzksj57.6cm/sS2 Uexolkzj75.80cm/s D2 Afyncntg28.8cm/s LEFT VENTRICLE The Left Ventricle is moderately dilated. There is normal left ventricular wall thickness. Left ventr icle systolic function is mild to moderately impaired. The Ejection Fraction is 40-45%. There is glob al hypokinesis of the left ventricle. Septal motion suggestive of conduction defect. Transmitral Dopp ler flow pattern is Grade II-pseudonormal filling dynamics. RIGHT VENTRICLE The right ventricle is normal size. The right ventricular systolic function is normal. ATRIA The left atrium is mildly dilated. The right atrium size is normal. The interatrial septum is intact with no evidence for an atrial septal defect or patent foramen ovale as noted on 2-D or Doppler imagi ng. AORTIC VALVE The aortic valve is not well visualized but appears calcified and displays decreased opening per Dopp ler interrogation. Doppler and Color Flow revealed no significant aortic regurgitation. Calculated ao rtic valve area is 1.53 cm2 with maximum pressure gradient of 18 mmHg and mean pressure gradient of 1 1 mmHg. Doppler and color-flow analysis revealed mild aortic stenosis. MITRAL VALVE The mitral valve is calcified but opens well. There is no evidence of mitral valve prolapse. There is no mitral valve stenosis. Doppler and Color-flow revealed trace mitral regurgitation. TRICUSPID VALVE The tricuspid valve is normal in structure and function. Doppler and Color Flow revealed no tricuspid valve regurgitation noted. There is no tricuspid valve stenosis. PULMONIC VALVE The pulmonic valve is not well visualized. Doppler and Color Flow revealed mild pulmonic valvular reg urgitation. There is no pulmonic valvular stenosis. GREAT VESSELS The aortic root is normal in size. The ascending aorta is not well seen. The IVC was not visualized. PERICARDIAL EFFUSION There is no evidence of significant pericardial effusion. Critical Notification Critical Value: No <Conclusion> Left ventricle systolic function is mild to moderately impaired. The Ejection Fraction is 40-45%. There is global hypokinesis of the left ventricle. Septal motion suggestive of conduction defect. Signed by : Gregg Plummer, Electronically Approved : 12/14/2018 11:07:04
--- NOTE | 2018-12-14 11:26 | PDOC ---
PULMONARY PROGRESS NOTES Subjective remains on AC mode slowly improving oxygenation Vitals Vital Signs Date Time Temp Pulse Resp B/P (MAP) Pulse Ox O2 Delivery O2 Flow Rate FiO2 12/14/18 11:13 16 96 Ventilator 12/14/18 11:00 99.3 66 134/55 (81) 99.3 Lungs: Other (decrease bases) Cardiovascular: S1, S2 Abdomen: Soft, Other (obese) Extremities: Other (2+edema) Skin: Warm Labs Laboratory Tests Test 12/13/18 13:05 12/13/18 13:06 12/13/18 13:10 12/13/18 13:11 White Blood Count 12.3 x10^3/uL (4.0-11.0) Red Blood Count 4.04 x10^6/uL (4.30-5.70) Hemoglobin 12.1 g/dL (13.0-17.5) Hematocrit 38.2 % (39.0-53.0) Mean Corpuscular Volume 95 fL (79-100) Mean Corpuscular Hemoglobin 30 pg (25-35) Mean Corpuscular Hemoglobin Concent 32 g/dL (31-37) Red Cell Distribution Width 15.1 % (11.5-14.5) Platelet Count 222 x10^3/uL (140-400) Neutrophils (%) (Auto) 38 % (31-73) Lymphocytes (%) (Auto) 47 % (24-48) Monocytes (%) (Auto) 11 % (0-9) Eosinophils (%) (Auto) 3 % (0-3) Basophils (%) (Auto) 1 % (0-3) Neutrophils # (Auto) 4.7 x10^3uL (1.8-7.7) Lymphocytes # (Auto) 5.8 x10^3/uL (1.0-4.8) Monocytes # (Auto) 1.3 x10^3/uL (0.0-1.1) Eosinophils # (Auto) 0.4 x10^3/uL (0.0-0.7) Basophils # (Auto) 0.1 x10^3/uL (0.0-0.2) Prothrombin Time 16.0 SEC (11.7-14.0) Prothromb Time International Ratio 1.3 (0.8-1.1) Activated Partial Thromboplast Time 28 SEC (24-38) Sodium Level 138 mmol/L (136-145) Potassium Level 4.0 mmol/L (3.5-5.1) Chloride Level 102 mmol/L (98-107) Carbon Dioxide Level 23 mmol/L (21-32) Anion Gap 13 (6-14) 17 mmol/L (6-14) Blood Urea Nitrogen 25 mg/dL (8-26) Creatinine 1.6 mg/dL (0.7-1.3) Estimated GFR (Cockcroft-Gault) 42.7 BUN/Creatinine Ratio 16 (6-20) Glucose Level 396 mg/dL (70-99) 391 mg/dL (70-99) Calcium Level 8.7 mg/dL (8.5-10.1) Magnesium Level 2.0 mg/dL (1.8-2.4) Total Bilirubin 0.3 mg/dL (0.2-1.0) Aspartate Amino Transf (AST/SGOT) 22 U/L (15-37) Alanine Aminotransferase (ALT/SGPT) 20 U/L (16-63) Alkaline Phosphatase 63 U/L (46-116) Creatine Kinase 74 U/L (39-308) Creatine Kinase MB (Mass) 2.2 ng/mL (0.0-3.6) Creatine Kinase MB Relative Index % (0-4) Troponin I Quantitative < 0.017 ng/mL (0.000-0.055) EM-Bxg-V-Type Natriuretic Peptide 514 pg/mL (0-124) Total Protein 8.1 g/dL (6.4-8.2) Albumin 3.4 g/dL (3.4-5.0) Albumin/Globulin Ratio 0.7 (1.0-1.7) Triglycerides Level 347 mg/dL (0-150) Cholesterol Level 218 mg/dL (0-200) LDL Cholesterol, Calculated 113 mg/dL (0-100) VLDL Cholesterol, Calculated 69 mg/dL (0-40) Non-HDL Cholesterol Calculated 182 mg/dL (0-129) HDL Cholesterol 36 mg/dL (40-60) Cholesterol/HDL Ratio 6.1 O2 Saturation 97 % (92-99) Arterial Blood pH 7.16 (7.35-7.45) Arterial Blood pCO2 at Patient Temp 66 mmHg (35-46) Arterial Blood pO2 at Patient Temp 114 mmHg (65-108) Arterial Blood HCO3 23 mmol/L (21-28) Arterial Blood Base Excess -7 mmol/L (-3-3) FiO2 100 Bedside Troponin I 0.02 ng/ml (<0.08) Bedside Hemoglobin 12.6 g/dL (14-18) Bedside Hematocrit 37 % (37-52) Bedside Sodium 140 mmol/L (135-145) Bedside Potassium 4.0 mmol/L (3.5-5.0) Bedside Chloride 104 mmol/L (98-110) Bedside Total CO2 24 mmol/L (23-32) Bedside Blood Urea Nitrogen 24 mg/dL (8-26) Bedside Creatinine 1.3 mg/dL (0.5-1.4) Bedside Ionized Calcium (Giuliana) 1.17 mmol/L (1.13-1.32) Test 12/13/18 13:20 12/13/18 16:00 12/13/18 16:35 12/13/18 19:58 Urine Collection Type U cath Urine Color Yellow Urine Clarity Clear Urine pH 5.5 Urine Specific [place] 1.015 Urine Protein 100 mg/dL (NEG-TRACE) Urine Glucose (UA) >=1000 mg/dL (NEG) Urine Ketones (Stick) Negative mg/dL (NEG) Urine Blood Small (NEG) Urine Nitrite Negative (NEG) Urine Bilirubin Negative (NEG) Urine Urobilinogen Dipstick 0.2 mg/dL (0.2 mg/dL) Urine Leukocyte Esterase Negative (NEG) Urine RBC 11-20 /HPF (0-2) Urine WBC 0 /HPF (0-4) Urine Amorphous Sediment Present /HPF Urine Bacteria 0 /HPF (0-FEW) Urine Hyaline Casts Moderate /HPF Urine Mucus Slight /LPF O2 Saturation 93 % (92-99) Arterial Blood pH 7.36 (7.35-7.45) Arterial Blood pCO2 at Patient Temp 48 mmHg (35-46) Arterial Blood pO2 at Patient Temp 71 mmHg (65-108) Arterial Blood HCO3 26 mmol/L (21-28) Arterial Blood Base Excess 0 mmol/L (-3-3) FiO2 60 Troponin I Quantitative 1.143 ng/mL (0.000-0.055) 3.573 ng/mL (0.000-0.055) Thyroid Stimulating Hormone (TSH) 3.085 uIU/mL (0.358-3.74) Test 12/13/18 23:31 12/14/18 05:00 12/14/18 07:40 Glucose (Fingerstick) 192 mg/dL (70-99) White Blood Count 7.3 x10^3/uL (4.0-11.0) Red Blood Count 3.36 x10^6/uL (4.30-5.70) Hemoglobin 10.2 g/dL (13.0-17.5) Hematocrit 30.9 % (39.0-53.0) Mean Corpuscular Volume 92 fL (79-100) Mean Corpuscular Hemoglobin 30 pg (25-35) Mean Corpuscular Hemoglobin Concent 33 g/dL (31-37) Red Cell Distribution Width 15.2 % (11.5-14.5) Platelet Count 165 x10^3/uL (140-400) Neutrophils (%) (Auto) 68 % (31-73) Lymphocytes (%) (Auto) 19 % (24-48) Monocytes (%) (Auto) 11 % (0-9) Eosinophils (%) (Auto) 1 % (0-3) Basophils (%) (Auto) 1 % (0-3) Neutrophils # (Auto) 5.0 x10^3uL (1.8-7.7) Lymphocytes # (Auto) 1.4 x10^3/uL (1.0-4.8) Monocytes # (Auto) 0.8 x10^3/uL (0.0-1.1) Eosinophils # (Auto) 0.1 x10^3/uL (0.0-0.7) Basophils # (Auto) 0.0 x10^3/uL (0.0-0.2) Heparin Anti-Xa Act, Unfractionated 0.27 IU/mL (0.30-0.70) Sodium Level 142 mmol/L (136-145) Potassium Level 3.6 mmol/L (3.5-5.1) Chloride Level 102 mmol/L (98-107) Carbon Dioxide Level 29 mmol/L (21-32) Anion Gap 11 (6-14) Blood Urea Nitrogen 23 mg/dL (8-26) Creatinine 1.4 mg/dL (0.7-1.3) Estimated GFR (Cockcroft-Gault) 49.8 Glucose Level 168 mg/dL (70-99) Calcium Level 8.6 mg/dL (8.5-10.1) Phosphorus Level 3.7 mg/dL (2.6-4.7) Magnesium Level 1.9 mg/dL (1.8-2.4) O2 Saturation 92 % (92-99) Arterial Blood pH 7.51 (7.35-7.45) Arterial Blood pCO2 at Patient Temp 34 mmHg (35-46) Arterial Blood pO2 at Patient Temp 61 mmHg (65-108) Arterial Blood HCO3 26 mmol/L (21-28) Arterial Blood Base Excess 4 mmol/L (-3-3) FiO2 40 Laboratory Tests Test 12/13/18 13:05 12/13/18 13:06 12/13/18 13:10 12/13/18 13:11 White Blood Count 12.3 x10^3/uL (4.0-11.0) Red Blood Count 4.04 x10^6/uL (4.30-5.70) Hemoglobin 12.1 g/dL (13.0-17.5) Hematocrit 38.2 % (39.0-53.0) Mean Corpuscular Volume 95 fL (79-100) Mean Corpuscular Hemoglobin 30 pg (25-35) Mean Corpuscular Hemoglobin Concent 32 g/dL (31-37) Red Cell Distribution Width 15.1 % (11.5-14.5) Platelet Count 222 x10^3/uL (140-400) Neutrophils (%) (Auto) 38 % (31-73) Lymphocytes (%) (Auto) 47 % (24-48) Monocytes (%) (Auto) 11 % (0-9) Eosinophils (%) (Auto) 3 % (0-3) Basophils (%) (Auto) 1 % (0-3) Neutrophils # (Auto) 4.7 x10^3uL (1.8-7.7) Lymphocytes # (Auto) 5.8 x10^3/uL (1.0-4.8) Monocytes # (Auto) 1.3 x10^3/uL (0.0-1.1) Eosinophils # (Auto) 0.4 x10^3/uL (0.0-0.7) Basophils # (Auto) 0.1 x10^3/uL (0.0-0.2) Prothrombin Time 16.0 SEC (11.7-14.0) Prothromb Time International Ratio 1.3 (0.8-1.1) Activated Partial Thromboplast Time 28 SEC (24-38) Sodium Level 138 mmol/L (136-145) Potassium Level 4.0 mmol/L (3.5-5.1) Chloride Level 102 mmol/L (98-107) Carbon Dioxide Level 23 mmol/L (21-32) Anion Gap 13 (6-14) 17 mmol/L (6-14) Blood Urea Nitrogen 25 mg/dL (8-26) Creatinine 1.6 mg/dL (0.7-1.3) Estimated GFR (Cockcroft-Gault) 42.7 BUN/Creatinine Ratio 16 (6-20) Glucose Level 396 mg/dL (70-99) 391 mg/dL (70-99) Calcium Level 8.7 mg/dL (8.5-10.1) Magnesium Level 2.0 mg/dL (1.8-2.4) Total Bilirubin 0.3 mg/dL (0.2-1.0) Aspartate Amino Transf (AST/SGOT) 22 U/L (15-37) Alanine Aminotransferase (ALT/SGPT) 20 U/L (16-63) Alkaline Phosphatase 63 U/L (46-116) Creatine Kinase 74 U/L (39-308) Creatine Kinase MB (Mass) 2.2 ng/mL (0.0-3.6) Creatine Kinase MB Relative Index % (0-4) Troponin I Quantitative < 0.017 ng/mL (0.000-0.055) TY-Rkv-B-Type Natriuretic Peptide 514 pg/mL (0-124) Total Protein 8.1 g/dL (6.4-8.2) Albumin 3.4 g/dL (3.4-5.0) Albumin/Globulin Ratio 0.7 (1.0-1.7) Triglycerides Level 347 mg/dL (0-150) Cholesterol Level 218 mg/dL (0-200) LDL Cholesterol, Calculated 113 mg/dL (0-100) VLDL Cholesterol, Calculated 69 mg/dL (0-40) Non-HDL Cholesterol Calculated 182 mg/dL (0-129) HDL Cholesterol 36 mg/dL (40-60) Cholesterol/HDL Ratio 6.1 O2 Saturation 97 % (92-99) Arterial Blood pH 7.16 (7.35-7.45) Arterial Blood pCO2 at Patient Temp 66 mmHg (35-46) Arterial Blood pO2 at Patient Temp 114 mmHg (65-108) Arterial Blood HCO3 23 mmol/L (21-28) Arterial Blood Base Excess -7 mmol/L (-3-3) FiO2 100 Bedside Troponin I 0.02 ng/ml (<0.08) Bedside Hemoglobin 12.6 g/dL (14-18) Bedside Hematocrit 37 % (37-52) Bedside Sodium 140 mmol/L (135-145) Bedside Potassium 4.0 mmol/L (3.5-5.0) Bedside Chloride 104 mmol/L (98-110) Bedside Total CO2 24 mmol/L (23-32) Bedside Blood Urea Nitrogen 24 mg/dL (8-26) Bedside Creatinine 1.3 mg/dL (0.5-1.4) Bedside Ionized Calcium (Giuliana) 1.17 mmol/L (1.13-1.32) Test 12/13/18 13:20 12/13/18 16:00 12/13/18 16:35 12/13/18 19:58 Urine Collection Type U cath Urine Color Yellow Urine Clarity Clear Urine pH 5.5 Urine Specific [place] 1.015 Urine Protein 100 mg/dL (NEG-TRACE) Urine Glucose (UA) >=1000 mg/dL (NEG) Urine Ketones (Stick) Negative mg/dL (NEG) Urine Blood Small (NEG) Urine Nitrite Negative (NEG) Urine Bilirubin Negative (NEG) Urine Urobilinogen Dipstick 0.2 mg/dL (0.2 mg/dL) Urine Leukocyte Esterase Negative (NEG) Urine RBC 11-20 /HPF (0-2) Urine WBC 0 /HPF (0-4) Urine Amorphous Sediment Present /HPF Urine Bacteria 0 /HPF (0-FEW) Urine Hyaline Casts Moderate /HPF Urine Mucus Slight /LPF O2 Saturation 93 % (92-99) Arterial Blood pH 7.36 (7.35-7.45) Arterial Blood pCO2 at Patient Temp 48 mmHg (35-46) Arterial Blood pO2 at Patient Temp 71 mmHg (65-108) Arterial Blood HCO3 26 mmol/L (21-28) Arterial Blood Base Excess 0 mmol/L (-3-3) FiO2 60 Troponin I Quantitative 1.143 ng/mL (0.000-0.055) 3.573 ng/mL (0.000-0.055) Thyroid Stimulating Hormone (TSH) 3.085 uIU/mL (0.358-3.74) Test 12/13/18 23:31 12/14/18 05:00 12/14/18 07:40 Glucose (Fingerstick) 192 mg/dL (70-99) White Blood Count 7.3 x10^3/uL (4.0-11.0) Red Blood Count 3.36 x10^6/uL (4.30-5.70) Hemoglobin 10.2 g/dL (13.0-17.5) Hematocrit 30.9 % (39.0-53.0) Mean Corpuscular Volume 92 fL (79-100) Mean Corpuscular Hemoglobin 30 pg (25-35) Mean Corpuscular Hemoglobin Concent 33 g/dL (31-37) Red Cell Distribution Width 15.2 % (11.5-14.5) Platelet Count 165 x10^3/uL (140-400) Neutrophils (%) (Auto) 68 % (31-73) Lymphocytes (%) (Auto) 19 % (24-48) Monocytes (%) (Auto) 11 % (0-9) Eosinophils (%) (Auto) 1 % (0-3) Basophils (%) (Auto) 1 % (0-3) Neutrophils # (Auto) 5.0 x10^3uL (1.8-7.7) Lymphocytes # (Auto) 1.4 x10^3/uL (1.0-4.8) Monocytes # (Auto) 0.8 x10^3/uL (0.0-1.1) Eosinophils # (Auto) 0.1 x10^3/uL (0.0-0.7) Basophils # (Auto) 0.0 x10^3/uL (0.0-0.2) Heparin Anti-Xa Act, Unfractionated 0.27 IU/mL (0.30-0.70) Sodium Level 142 mmol/L (136-145) Potassium Level 3.6 mmol/L (3.5-5.1) Chloride Level 102 mmol/L (98-107) Carbon Dioxide Level 29 mmol/L (21-32) Anion Gap 11 (6-14) Blood Urea Nitrogen 23 mg/dL (8-26) Creatinine 1.4 mg/dL (0.7-1.3) Estimated GFR (Cockcroft-Gault) 49.8 Glucose Level 168 mg/dL (70-99) Calcium Level 8.6 mg/dL (8.5-10.1) Phosphorus Level 3.7 mg/dL (2.6-4.7) Magnesium Level 1.9 mg/dL (1.8-2.4) O2 Saturation 92 % (92-99) Arterial Blood pH 7.51 (7.35-7.45) Arterial Blood pCO2 at Patient Temp 34 mmHg (35-46) Arterial Blood pO2 at Patient Temp 61 mmHg (65-108) Arterial Blood HCO3 26 mmol/L (21-28) Arterial Blood Base Excess 4 mmol/L (-3-3) FiO2 40 Medications Active Scripts Medications Dose Route/Sig Max Daily Dose Days Date Category [place] 50-1,000 Mg Tablet (Sitagliptin Phos/Metformin Hcl) 1 Each Tablet 2 Tab PO QEVNG 12/13/18 Reported Clopidogrel (Clopidogrel Bisulfate) 75 Mg Tablet 1 Tab PO DAILY 12/06/17 Reported Levothyroxine Sodium 200 Mcg Tablet 1 Tab PO DAILY 12/06/17 Reported Lisinopril 40 Mg Tablet 40 Mg PO DAILY 12/06/17 Reported Klor-Con M20 (Potassium Chloride) 20 Meq Tab.er.prt 20 Meq PO DAILY 12/06/17 Reported Metformin Hcl Er (Metformin Hcl) 1,000 Mg Tab.er.24 1 Tab PO BID 07/20/16 Reported NITROGLYCERIN SubLingual (Nitroglycerin) 0.4 Mg Tab.subl 0.4 Mg SL PRN Q5MIN PRN 07/20/16 Reported Glimepiride 4 Mg Tablet 1 Tab PO DAILY 07/20/16 Reported Lantus Solostar (Insulin Glargine,Hum.rec.anlog) 100 Unit/1 Ml Insuln.pen 70 Unit SQ QHS 07/20/15 Reported Pravastatin Sodium 40 Mg Tablet 1 Tab PO QHS 07/20/15 Reported Amlodipine Besylate 10 Mg Tablet 10 Mg PO DAILY 07/20/15 Reported Aspir 81 (Aspirin) 81 Mg Tablet.dr 1 Tab PO DAILY 07/20/15 Reported Metoprolol Tartrate 25 Mg Tablet 1 Tab PO BID 07/20/15 Reported Furosemide 40 Mg Tablet 1 Tab PO DAILY 07/20/15 Reported Comments CXR 12/14 IMPROVING chf/ l BASE ATELECTASIS Impression . 1. Acute hypoxic and hypercapnic respiratory failure secondary to acute on chronic systolic heart failure. 2. The patient with known cardiomyopathy with an EF of 38% and a recent cardiac catheterization suggesting evidence of high filling pressures with increased left ventricular end diastolic pressure of 21. Now comes in with worsening congestive heart failure. 3. Morbid obesity and suspected obesity hypoventilation syndrome. 4. Suspected underlying chronic obstructive pulmonary disease. 5. Renal insufficiency. 6. Encephalopathy, toxic and metabolic. 7. Abnormal chest x-ray consistent with congestive heart failure./ LLL atelectasis/ low grade fever/? pneumonia Plan . 1. Continue with present assist control mode. The rate has been decreased to correct respiratory alkalosis. Follow ABG/ not ready for CPAP trial yet 2. Diuresis. 3. The patient had brief CPR for EKG pause for about 10 seconds. Cardiology to follow. cath today 4. Bronchodilators. 5. DVT prophylaxis. 6. Stress ulcer prophylaxis. 7. Follow up chest x-rays. 8. Follow renal function. 9. Prognosis is guarded. 10. start enteral nutrition 11. add empiric abx d/w RN/ sister Critical care time 30 minutes. CATIE URIBE MD Dec 14, 2018 11:26
[2018-12-14] MEDS ORDERED: PIP/TAZO PER PHARMACY MC PRN (11:30)
[2018-12-14] MEDS: PIPERACILLIN/TAZOBACTAM 3.375 GM in IV NORMAL SALINE 50ML 50 ML IV SCH ×3 (11:41→23:53)
[2018-12-14] MEDS: HEPARIN 25,000UTS/500ML PREMIX 500 ML IV PRN (13:10)
[2018-12-14] MEDS ORDERED: IODIXANOL 320 MG/ML 100 ML VIAL. ONE (13:55)
[2018-12-14] MEDS ORDERED: LIDOCAINE 1% PF 2 ML VIAL. ONE (13:56)
[2018-12-14] MEDS ORDERED: methylPREDNISolone SOD SUCC PF 125 MG/2 ML VIAL. ONE (15:06)
[2018-12-14] MEDS ORDERED: diphenhydrAMINE 50 MG/ML VIAL ONE (15:06)
[2018-12-14] MEDS ORDERED: HEPARIN for IV BOLUS 10,000 UNIT/10 ML VIAL. ONE (15:13)
[2018-12-14] MEDS ORDERED: VERAPAMIL 5 MG/2 ML VIAL. ONE (15:13)
[2018-12-14] MEDS ORDERED: NITROGLYCERIN 200 MCG/2 ML SYRINGE FOR CATH/VASC LAB. ONE (15:14)
[2018-12-14] MEDS ORDERED: HEPARIN for IV BOLUS 10,000 UNIT/10 ML VIAL. IART ONE (15:30)
[2018-12-14] MEDS ORDERED: methylPREDNISolone SOD SUCC PF 125 MG/2 ML VIAL. IV ONE (15:30)
[2018-12-14] MEDS ORDERED: IODIXANOL 320 MG/ML 100 ML VIAL. IART ONE (15:30)
[2018-12-14] MEDS ORDERED: NITROGLYCERIN 200 MCG/2 ML SYRINGE FOR CATH/VASC LAB. IART ONE (15:30)
[2018-12-14] MEDS ORDERED: diphenhydrAMINE 50 MG/ML VIAL IVP ONE (15:30)
[2018-12-14] MEDS ORDERED: VERAPAMIL 5 MG/2 ML VIAL. IART ONE (15:30)
[2018-12-14] MEDS ORDERED: CONTRAST GIVEN. MC PRN (15:30)
[2018-12-14] MEDS ORDERED: LIDOCAINE 1% PF 2 ML VIAL. INJ ONE (15:30)
--- NOTE | 2018-12-14 16:13 | NUR ---
SS following for discharge planning. SS reviewed pt chart. Pt is from [facility]. Pt is currently on the vent. No discharge needs noted at this time. Pt may require [facility] at discharge. SS will continue to follow for pending discharge needs.
[2018-12-14] MEDS ORDERED: DEXTROSE 50% 25 GM / 50ML DISP.SYRIN. IV PRN (16:45)
[2018-12-14] MEDS ORDERED: 0.9 % SODIUM CHLORIDE 10 ML DISP.SYRIN. IV PRN (16:45)
[2018-12-14] MEDS ORDERED: NITROGLYCERIN SUBLINGUAL 0.4 MG BOTTLE OF 25. SL PRN (16:45)
--- NOTE | 2018-12-14 16:46 | PDOC ---
MODERATE SEDATION ASSESSMENT RISKS/ALTERNATIVES Risks/Alternatives Risks and alternatives of this type of sedation and procedure discussed with: RISK/ALTERNATIVES: Patient H & P ON CHART H & P H & P on chart and reviewed for co-morbid conditions and appropriate labs. H&P ON CHART: Yes STATUS PREG STATUS ASSESSED: N/A MEDS/ALLERGIES REVIEWED Meds/Allergies Reviewed Medications and Allergies including time and route of recently administered narcotics and sedatives. MEDS/ALLERGIES REVIEWED: Yes ASA RATING ASA RATING: II AIRWAY ASSESSMENT Airway Assessment Airway patency, oral function limitations, presence of caps, crowns, dentures, partials, and ability to extend neck assessed. AIRWAY ASSESSMENT: Yes MALLAMPATI SCORE MALLAMPATI SCORE: II PRE-SEDATION ASSESSMENT PRE-SEDATION ASSESSMENT: Yes HUMZA LINDQUIST MD Dec 14, 2018 16:46
[2018-12-14] MEDS ORDERED: INSULIN LISPRO 300 UNITS/3 ML INSULN.PEN. SQ SCH (17:00)
--- NOTE | 2018-12-14 17:55 | NUR ---
all air removed out of tr band on pts right wrist. site soft, nontender nor discolored. pt tolerated post cardiac cath well. vs stable. diprivan continued for sedation with pt still on ventilator.
[2018-12-14] MEDS ORDERED: MINERAL OIL/PETROLATUM,WHITE OPHTH OINT 3.5GM TUBE. OU PRN (18:45)
[2018-12-14] MEDS: ATORVASTATIN CALCIUM 10 MG TABLET. FT SCH (20:48)
[2018-12-14] MEDS: INSULIN GLARGINE 300 UNITS/3 ML INSULN.PEN. SQ SCH (20:52)
[2018-12-14] MEDS ORDERED: INSULIN GLARGINE 300 UNITS/3 ML INSULN.PEN. SQ SCH (21:00)
[2018-12-14] MEDS: INSULIN LISPRO 300 UNITS/3 ML INSULN.PEN. SQ SCH (23:54)
[2018-12-15] VITALS (23 sets, daily range): BP systolic 100–182; BP diastolic 41–84
[2018-12-15] MEDS: PROPOFOL 100 ML IV PRN ×2 (02:32→05:36)
--- NOTE | 2018-12-15 05:08 | CARD ---
MR#: [id number] Date of Study: 12/14/2018 Ordering Physician: HUMZA PLUMMER, Referring Physician: YIMI GE Tech: RT Allyson (R) APPROVED REPORT Technologist: RT Allyson (R) Nurse: Antoinette Washington R.N. Procedure(s) performed: MODERATE SEDATION 29 MINUTES LHC, Coronary angiography HISTORY The patient is a 73 year-old male with a history of : coronary artery disease. INDICATION The indication(s) include : non-STEMI . CSHA Clinical Frailty Scale CS Clinical Frailty Scale: Severely Frail Heart Failure Heart Failure: Yes If Yes, Newly Diagnosed: Yes If Yes, HF Type: Diastolic Systolic If Yes, NYHA Class: Class III PROCEDURE NARRATIVE INFORMED CONSENT: After explaining the risks and benefits of the procedure and alternatives, informed consent was obtained. The patient was brought electively to the cardiac catheterization lab. A timeout was performed confi rming the patient's name, date of , procedure, and site of procedure. All necessary personnel w ere wearing the appropriate protective equipment and radiation monitor devices. (See nursing notes for medications administered). ACCESS: The right wrist was sterilely prepped and draped in the usual fashion. The right wrist was infiltrat ed with 1 mL of 2% lidocaine for subcutaneous anesthesia. A 6 [place] Terumo glide sheath was inserte d into the right radial artery without difficulty. CORONARY ANGIOGRAPHY: Right and left coronary angiography was performed using a 6Fr TIG 4.0 catheter. Left ventricular en d diastolic pressure was obtained with a pigtail catheter and pullback was performed. All catheter e xchanges and advancements were performed over a guidewire. CLOSURE: At case completion the right radial sheath was removed and a Terumo radial band was applied with 13 m l of air. COMPLICATIONS: The patient tolerated the procedure well and there were no immediate complications. FINDINGS: HEMODYNAMICS: LVEDP 28 mm Hg No gradient on LV to aortic pullback. AO: 128/78 LEFT VENTRICULOGRAM: Deferred due to known EF from echo. CORONARY ANGIOGRAPHY: LM is a large caliber vessel with normal angiographic appearance. LAD is a moderate caliber vessel with a proximal 50% stenosis and mild diffuse irregularities. D1 is a moderate caliber vessel with proximal 50% stenosis. LCx is a moderate to large caliber dominant vessel with a patent mid stent, followed by a 60% stenosi s. OM1 is a moderate caliber vessel with mild luminal irregularities. LPDA is a small to moderate caliber vessel with mild luminal irregularities of up to 50%. RCA is a small caliber non-dominant vessel with severe diffuse disease. *No significant change compared to cath from 1 year ago. Conclusion 1. Elevated left sided filling pressures. 2. Moderate stable 3V CAD, unchanged from prior. 3. Patent LCx stent Recommendations Aggressive Medical Therapy Signed by : Humza Plummer, Electronically Approved : 12/15/2018 05:07:26
[2018-12-15] MEDS: PIPERACILLIN/TAZOBACTAM 3.375 GM in IV NORMAL SALINE 50ML 50 ML IV SCH ×3 (05:35→18:25)
[2018-12-15] MEDS: INSULIN LISPRO 300 UNITS/3 ML INSULN.PEN. SQ SCH ×3 (05:39→17:21)
[2018-12-15 06:03] LABS: HEMATOCRIT 31.8 % (39.0-53.0); HEMOGLOBIN 10.6 g/dL (13.0-17.5); RED BLOOD COUNT 3.42 x10^6/uL (4.30-5.70); RED CELL DISTRIBUTION WIDTH 15.2 % (11.5-14.5)
[2018-12-15 06:19] LABS: CALCIUM 8.5 mg/dL (8.5-10.1); CREATININE 1.7 mg/dL (0.7-1.3); GFR 39.8; POTASSIUM 3.2 mmol/L (3.5-5.1)
[2018-12-15] MEDS ORDERED: POTASSIUM CHLORIDE 20 MEQ/15 ML ORAL LIQUID. PO ONE (07:00)
--- NOTE | 2018-12-15 07:49 | RAD ---
Indication:RESPIRATORY FAILURE TECHNIQUE:Portable AP chest X-ray COMPARISON:12/14/2018 FINDINGS: Stable position of ET tube which is the level of bella and should be withdrawn by approximately 4 cm. NG tube is seen with its tip in the body of the stomach. Heart is mildly enlarged in size. Diffuse bilateral prominent bronchovascular markings are seen with interstitial opacities. Silhouetting of the left hemidiaphragm. No pneumothorax. Visualized bony thorax within normal limits. IMPRESSION: 1. Low-lying ET tube at the level of bella. Please withdraw by 3-4 cm. 2. Interstitial pulmonary edema with consolidation in the left lung base likely secondary to atelectasis, pneumonia and/or pleural effusion. Findings discussed with ORLIN De La Torre on 12/15/2018 at 7:46 AM. Electronically signed by: Magnus Giordano DO (12/15/2018 7:46 AM) [facility]
[2018-12-15] MEDS: IPRATRPIUM/ALBUTEROL 0.5/2.5MG 3 ML NEBU. NEB SCH ×4 (08:20→19:57)
[2018-12-15 08:28] LABS: BASE EXCESS ABG 2 mmol/L (-3-3); HCO3 ABG 27 mmol/L (21-28); PCO2 ABG 44 mmHg (35-46); PO2 ABG 79 mmHg (65-108); SAT O2 ABG 94 % (92-99)
[2018-12-15 08:31] LABS: FIO2 ABG 40
[2018-12-15] MEDS: ELECTROLYTE (ICU) PROTOCOL. MC SCH (09:00)
[2018-12-15] MEDS: DOCUSATE 100 MG/10 ML SOLUTION. FT SCH ×2 (09:20→21:09)
[2018-12-15] MEDS: POTASSIUM CHLORIDE 20 MEQ/15 ML ORAL LIQUID. PEG SCH (09:20)
[2018-12-15] MEDS: CLOPIDOGREL BISULFATE 75 MG TABLET FT SCH (09:21)
[2018-12-15] MEDS: ASPIRIN CHEWABLE 81 MG TABLET. FT SCH (09:21)
[2018-12-15] MEDS: LISINOPRIL 20 MG TABLET FT SCH (09:22)
[2018-12-15] MEDS: FUROSEMIDE 40 MG/4 ML VIAL. IVP SCH (09:23)
[2018-12-15] MEDS: FAMOTIDINE 20 MG/2 ML VIAL IVP SCH ×2 (09:23→21:09)
[2018-12-15] MEDS: SENNA LEAF EXTRACT 528 MG/15 ML ORAL SYRUP. FT SCH ×2 (09:24→21:00)
[2018-12-15] MEDS: amLODIPine BESYLATE 10 MG TABLET FT SCH (09:25)
[2018-12-15 10:42] LABS: BASE EXCESS ABG 2 mmol/L (-3-3); HCO3 ABG 26 mmol/L (21-28); PCO2 ABG 41 mmHg (35-46); PO2 ABG 77 mmHg (65-108); SAT O2 ABG 95 % (92-99)
[2018-12-15 10:48] LABS: FIO2 ABG 40
--- NOTE | 2018-12-15 11:20 | NUR ---
Pt placed on breathing trial this morning, trial passed, Woodrow Montoya notified and orders received to extubate. 1100 Pt extubated and placed on 4L NC tolerating well. Family at bedside.
--- NOTE | 2018-12-15 11:50 | PDOC ---
PULMONARY PROGRESS NOTES Subjective awake on CPAP trial ABG adequate Vitals Vital Signs Date Time Temp Pulse Resp B/P (MAP) Pulse Ox O2 Delivery O2 Flow Rate FiO2 12/15/18 10:22 182/83 (116) Ventilator 12/15/18 10:11 98 12/15/18 09:25 86 12/15/18 07:48 98.6 16 98.6 General: Alert, No acute distress Lungs: Other (decrease bases) Cardiovascular: S1, S2 Abdomen: Soft, Other (obese) Extremities: Other (2+edema) Skin: Warm Labs Laboratory Tests Test 12/13/18 13:05 12/13/18 13:06 12/13/18 13:10 12/13/18 13:11 White Blood Count 12.3 x10^3/uL (4.0-11.0) Red Blood Count 4.04 x10^6/uL (4.30-5.70) Hemoglobin 12.1 g/dL (13.0-17.5) Hematocrit 38.2 % (39.0-53.0) Mean Corpuscular Volume 95 fL (79-100) Mean Corpuscular Hemoglobin 30 pg (25-35) Mean Corpuscular Hemoglobin Concent 32 g/dL (31-37) Red Cell Distribution Width 15.1 % (11.5-14.5) Platelet Count 222 x10^3/uL (140-400) Neutrophils (%) (Auto) 38 % (31-73) Lymphocytes (%) (Auto) 47 % (24-48) Monocytes (%) (Auto) 11 % (0-9) Eosinophils (%) (Auto) 3 % (0-3) Basophils (%) (Auto) 1 % (0-3) Neutrophils # (Auto) 4.7 x10^3uL (1.8-7.7) Lymphocytes # (Auto) 5.8 x10^3/uL (1.0-4.8) Monocytes # (Auto) 1.3 x10^3/uL (0.0-1.1) Eosinophils # (Auto) 0.4 x10^3/uL (0.0-0.7) Basophils # (Auto) 0.1 x10^3/uL (0.0-0.2) Prothrombin Time 16.0 SEC (11.7-14.0) Prothromb Time International Ratio 1.3 (0.8-1.1) Activated Partial Thromboplast Time 28 SEC (24-38) Sodium Level 138 mmol/L (136-145) Potassium Level 4.0 mmol/L (3.5-5.1) Chloride Level 102 mmol/L (98-107) Carbon Dioxide Level 23 mmol/L (21-32) Anion Gap 13 (6-14) 17 mmol/L (6-14) Blood Urea Nitrogen 25 mg/dL (8-26) Creatinine 1.6 mg/dL (0.7-1.3) Estimated GFR (Cockcroft-Gault) 42.7 BUN/Creatinine Ratio 16 (6-20) Glucose Level 396 mg/dL (70-99) 391 mg/dL (70-99) Calcium Level 8.7 mg/dL (8.5-10.1) Magnesium Level 2.0 mg/dL (1.8-2.4) Total Bilirubin 0.3 mg/dL (0.2-1.0) Aspartate Amino Transf (AST/SGOT) 22 U/L (15-37) Alanine Aminotransferase (ALT/SGPT) 20 U/L (16-63) Alkaline Phosphatase 63 U/L (46-116) Creatine Kinase 74 U/L (39-308) Creatine Kinase MB (Mass) 2.2 ng/mL (0.0-3.6) Creatine Kinase MB Relative Index % (0-4) Troponin I Quantitative < 0.017 ng/mL (0.000-0.055) YZ-Gyd-H-Type Natriuretic Peptide 514 pg/mL (0-124) Total Protein 8.1 g/dL (6.4-8.2) Albumin 3.4 g/dL (3.4-5.0) Albumin/Globulin Ratio 0.7 (1.0-1.7) Triglycerides Level 347 mg/dL (0-150) Cholesterol Level 218 mg/dL (0-200) LDL Cholesterol, Calculated 113 mg/dL (0-100) VLDL Cholesterol, Calculated 69 mg/dL (0-40) Non-HDL Cholesterol Calculated 182 mg/dL (0-129) HDL Cholesterol 36 mg/dL (40-60) Cholesterol/HDL Ratio 6.1 O2 Saturation 97 % (92-99) Arterial Blood pH 7.16 (7.35-7.45) [facility] ([facility]-46[facility] Arterial Blood pO2 at Patient Temp 114 mmHg (65-108) Arterial Blood HCO3 23 mmol/L (21-28) Arterial Blood Base Excess -7 mmol/L (-3-3) FiO2 100 Bedside Troponin I 0.02 ng/ml (<0.08) Bedside Hemoglobin 12.6 g/dL (14-18) Bedside Hematocrit 37 % (37-52) Bedside Sodium 140 mmol/L (135-145) Bedside Potassium 4.0 mmol/L (3.5-5.0) Bedside Chloride 104 mmol/L (98-110) Bedside Total CO2 24 mmol/L (23-32) Bedside Blood Urea Nitrogen 24 mg/dL (8-26) Bedside Creatinine 1.3 mg/dL (0.5-1.4) Bedside Ionized Calcium (Giuliana) 1.17 mmol/L (1.13-1.32) Test 12/13/18 13:20 12/13/18 15:45 12/13/18 16:00 12/13/18 16:35 Urine Collection Type U cath Urine Color Yellow Urine Clarity Clear Urine pH 5.5 Urine Specific Noble 1.015 Urine Protein 100 mg/dL (NEG-TRACE) Urine Glucose (UA) >=1000 mg/dL (NEG) Urine Ketones (Stick) Negative mg/dL (NEG) Urine Blood Small (NEG) Urine Nitrite Negative (NEG) Urine Bilirubin Negative (NEG) Urine Urobilinogen Dipstick 0.2 mg/dL (0.2 mg/dL) Urine Leukocyte Esterase Negative (NEG) Urine RBC 11-20 /HPF (0-2) Urine WBC 0 /HPF (0-4) Urine Amorphous Sediment Present /HPF Urine Bacteria 0 /HPF (0-FEW) Urine Hyaline Casts Moderate /HPF Urine Mucus Slight /LPF Nasal Screen MRSA (PCR) Negative (Negative) O2 Saturation 93 % (92-99) Arterial Blood pH 7.36 (7.35-7.45) Arterial Blood pCO2 at Patient Temp 48 mmHg (35-46) Arterial Blood pO2 at Patient Temp 71 mmHg (65-108) Arterial Blood HCO3 26 mmol/L (21-28) Arterial Blood Base Excess 0 mmol/L (-3-3) FiO2 60 Troponin I Quantitative 1.143 ng/mL (0.000-0.055) Thyroid Stimulating Hormone (TSH) 3.085 uIU/mL (0.358-3.74) Test 12/13/18 19:58 12/13/18 23:31 12/14/18 05:00 12/14/18 07:40 Troponin I Quantitative 3.573 ng/mL (0.000-0.055) Glucose (Fingerstick) 192 mg/dL (70-99) White Blood Count 7.3 x10^3/uL (4.0-11.0) Red Blood Count 3.36 x10^6/uL (4.30-5.70) Hemoglobin 10.2 g/dL (13.0-17.5) Hematocrit 30.9 % (39.0-53.0) Mean Corpuscular Volume 92 fL (79-100) Mean Corpuscular Hemoglobin 30 pg (25-35) Mean Corpuscular Hemoglobin Concent 33 g/dL (31-37) Red Cell Distribution Width 15.2 % (11.5-14.5) Platelet Count 165 x10^3/uL (140-400) Neutrophils (%) (Auto) 68 % (31-73) Lymphocytes (%) (Auto) 19 % (24-48) Monocytes (%) (Auto) 11 % (0-9) Eosinophils (%) (Auto) 1 % (0-3) Basophils (%) (Auto) 1 % (0-3) Neutrophils # (Auto) 5.0 x10^3uL (1.8-7.7) Lymphocytes # (Auto) 1.4 x10^3/uL (1.0-4.8) Monocytes # (Auto) 0.8 x10^3/uL (0.0-1.1) Eosinophils # (Auto) 0.1 x10^3/uL (0.0-0.7) Basophils # (Auto) 0.0 x10^3/uL (0.0-0.2) Heparin Anti-Xa Act, Unfractionated 0.27 IU/mL (0.30-0.70) Sodium Level 142 mmol/L (136-145) Potassium Level 3.6 mmol/L (3.5-5.1) Chloride Level 102 mmol/L (98-107) Carbon Dioxide Level 29 mmol/L (21-32) Anion Gap 11 (6-14) Blood Urea Nitrogen 23 mg/dL (8-26) Creatinine 1.4 mg/dL (0.7-1.3) Estimated GFR (Cockcroft-Gault) 49.8 Glucose Level 168 mg/dL (70-99) Calcium Level 8.6 mg/dL (8.5-10.1) Phosphorus Level 3.7 mg/dL (2.6-4.7) Magnesium Level 1.9 mg/dL (1.8-2.4) O2 Saturation 92 % (92-99) Arterial Blood pH 7.51 (7.35-7.45) Arterial Blood pCO2 at Patient Temp 34 mmHg (35-46) Arterial Blood pO2 at Patient Temp 61 mmHg (65-108) Arterial Blood HCO3 26 mmol/L (21-28) Arterial Blood Base Excess 4 mmol/L (-3-3) FiO2 40 Test 12/14/18 12:30 12/14/18 16:39 12/14/18 20:51 12/14/18 23:52 Heparin Anti-Xa Act, Unfractionated 0.52 IU/mL (0.30-0.70) Glucose (Fingerstick) 201 mg/dL (70-99) 273 mg/dL (70-99) 326 mg/dL (70-99) Test 12/15/18 05:09 12/15/18 05:10 12/15/18 08:00 12/15/18 10:30 Glucose (Fingerstick) 325 mg/dL (70-99) White Blood Count 8.0 x10^3/uL (4.0-11.0) Red Blood Count 3.42 x10^6/uL (4.30-5.70) Hemoglobin 10.6 g/dL (13.0-17.5) Hematocrit 31.8 % (39.0-53.0) Mean Corpuscular Volume 93 fL (79-100) Mean Corpuscular Hemoglobin 31 pg (25-35) Mean Corpuscular Hemoglobin Concent 33 g/dL (31-37) Red Cell Distribution Width 15.2 % (11.5-14.5) Platelet Count 162 x10^3/uL (140-400) Sodium Level 140 mmol/L (136-145) Potassium Level 3.2 mmol/L (3.5-5.1) Chloride Level 100 mmol/L (98-107) Carbon Dioxide Level 27 mmol/L (21-32) Anion Gap 13 (6-14) Blood Urea Nitrogen 24 mg/dL (8-26) Creatinine 1.7 mg/dL (0.7-1.3) Estimated GFR (Cockcroft-Gault) 39.8 Glucose Level 354 mg/dL (70-99) Calcium Level 8.5 mg/dL (8.5-10.1) Procalcitonin 0.21 ng/mL (0.00-0.10) O2 Saturation 94 % (92-99) 95 % (92-99) Arterial Blood pH 7.40 (7.35-7.45) 7.43 (7.35-7.45) Arterial Blood pCO2 at Patient Temp 44 mmHg (35-46) 41 mmHg (35-46) Arterial Blood pO2 at Patient Temp 79 mmHg (65-108) 77 mmHg (65-108) Arterial Blood HCO3 27 mmol/L (21-28) 26 mmol/L (21-28) Arterial Blood Base Excess 2 mmol/L (-3-3) 2 mmol/L (-3-3) FiO2 40 40 Laboratory Tests Test 12/14/18 12:30 12/14/18 16:39 12/14/18 20:51 12/14/18 23:52 Heparin Anti-Xa Act, Unfractionated 0.52 IU/mL (0.30-0.70) Glucose (Fingerstick) 201 mg/dL (70-99) 273 mg/dL (70-99) 326 mg/dL (70-99) Test 12/15/18 05:09 12/15/18 05:10 12/15/18 08:00 12/15/18 10:30 Glucose (Fingerstick) 325 mg/dL (70-99) White Blood Count 8.0 x10^3/uL (4.0-11.0) Red Blood Count 3.42 x10^6/uL (4.30-5.70) Hemoglobin 10.6 g/dL (13.0-17.5) Hematocrit 31.8 % (39.0-53.0) Mean Corpuscular Volume 93 fL (79-100) Mean Corpuscular Hemoglobin 31 pg (25-35) Mean Corpuscular Hemoglobin Concent 33 g/dL (31-37) Red Cell Distribution Width 15.2 % (11.5-14.5) Platelet Count 162 x10^3/uL (140-400) Sodium Level 140 mmol/L (136-145) Potassium Level 3.2 mmol/L (3.5-5.1) Chloride Level 100 mmol/L (98-107) Carbon Dioxide Level 27 mmol/L (21-32) Anion Gap 13 (6-14) Blood Urea Nitrogen 24 mg/dL (8-26) Creatinine 1.7 mg/dL (0.7-1.3) Estimated GFR (Cockcroft-Gault) 39.8 Glucose Level 354 mg/dL (70-99) Calcium Level 8.5 mg/dL (8.5-10.1) Procalcitonin 0.21 ng/mL (0.00-0.10) O2 Saturation 94 % (92-99) 95 % (92-99) Arterial Blood pH 7.40 (7.35-7.45) 7.43 (7.35-7.45) Arterial Blood pCO2 at Patient Temp 44 mmHg (35-46) 41 mmHg (35-46) Arterial Blood pO2 at Patient Temp 79 mmHg (65-108) 77 mmHg (65-108) Arterial Blood HCO3 27 mmol/L (21-28) 26 mmol/L (21-28) Arterial Blood Base Excess 2 mmol/L (-3-3) 2 mmol/L (-3-3) FiO2 40 40 Medications Active Scripts Medications Dose Route/Sig Max Daily Dose Days Date Category Sepume 50-1,000 Mg Tablet (Sitagliptin Phos/Metformin Hcl) 1 Each Tablet 2 Tab PO QEVNG 12/13/18 Reported Clopidogrel (Clopidogrel Bisulfate) 75 Mg Tablet 1 Tab PO DAILY 12/06/17 Reported Levothyroxine Sodium 200 Mcg Tablet 1 Tab PO DAILY 12/06/17 Reported Lisinopril 40 Mg Tablet 40 Mg PO DAILY 12/06/17 Reported Klor-Con M20 (Potassium Chloride) 20 Meq Tab.er.prt 20 Meq PO DAILY 12/06/17 Reported Metformin Hcl Er (Metformin Hcl) 1,000 Mg Tab.er.24 1 Tab PO BID 07/20/16 Reported NITROGLYCERIN SubLingual (Nitroglycerin) 0.4 Mg Tab.subl 0.4 Mg SL PRN Q5MIN PRN 07/20/16 Reported Glimepiride 4 Mg Tablet 1 Tab PO DAILY 07/20/16 Reported Lantus Solostar (Insulin Glargine,Hum.rec.anlog) 100 Unit/1 Ml Insuln.pen 70 Unit SQ QHS 07/20/15 Reported Pravastatin Sodium 40 Mg Tablet 1 Tab PO QHS 07/20/15 Reported Amlodipine Besylate 10 Mg Tablet 10 Mg PO DAILY 07/20/15 Reported Aspir 81 (Aspirin) 81 Mg Tablet.dr 1 Tab PO DAILY 07/20/15 Reported Metoprolol Tartrate 25 Mg Tablet 1 Tab PO BID 07/20/15 Reported Furosemide 40 Mg Tablet 1 Tab PO DAILY 07/20/15 Reported Comments CXR 12/15 IMPROVING chf/ l BASE ATELECTASIS Impression . 1. Acute hypoxic and hypercapnic respiratory failure secondary to acute on chronic systolic heart failure. 2. The patient with known cardiomyopathy with an EF of 38% and a recent cardiac catheterization suggesting evidence of high filling pressures with increased left ventricular end diastolic pressure of 21. Now comes in with worsening congestive heart failure. 3. Morbid obesity and suspected obesity hypoventilation syndrome. 4. Suspected underlying chronic obstructive pulmonary disease. 5. Renal insufficiency. 6. Encephalopathy, toxic and metabolic. 7. Abnormal chest x-ray consistent with congestive heart failure./ LLL atelectasis/ low grade fever/? pneumonia Plan . 1. Proceed with extubation 2. Diuresis. 3. cath findings reviewed 4. Bronchodilators. 5. DVT prophylaxis. 6. Stress ulcer prophylaxis. 7. Follow up chest x-rays. 8. Follow renal function. 9. empiric abx d/w RN/ family CATIE URIBE MD Dec 15, 2018 11:50
--- NOTE | 2018-12-15 12:28 | PDOC ---
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 The Ejection Fraction is 40-45%. There is global hypokinesis of the left ventricle. Septal motion suggestive of conduction defect. Plan: Continue supportive measures in the ICU Management as per Dr. Montoya recommendations greatly appreciated Continue with diuresis Further recommendations based on the clinical course History of Present Illness History of Present Illness Patient continues to be sedated on the ventilator. Continues to require ventilatory support No acute distress, no acute events reported overnight as per nursing staff. We will continue to provide supportive measures the ICU Vitals Vitals Vital Signs Date Time Temp Pulse Resp B/P (MAP) Pulse Ox O2 Delivery O2 Flow Rate FiO2 12/15/18 11:58 96 Nasal Cannula 4.0 12/15/18 10:22 182/83 (116) 12/15/18 09:25 86 12/15/18 07:48 98.6 16 98.6 Physical Exam Physical Exam Gen.: Obese currently on mechanical ventilation in no apparent distress Head: Normal shape atraumatic Eyes: Pupils equal reactive to light and accommodation, normal conjunctivae and lids Ears: Normal shape Nose: Normal shape no trauma Mouth: No exudates of the back of throat no thrush no lesions Neck: Supple no JVD no carotid bruit or lymphadenopathy no thyromegaly Chest: Lungs clear to auscultation with good inspiratory effort lower lung field crackles, no rales or rhonchi Cardiovascular: S1-S2 regular rhythm no murmurs gallops or rubs Abdomen: Bowel sounds present soft nontender no hepatosplenomegaly appreciated sign Extremities: No clubbing no cyanosis no edema peripheral pulses palpated bilaterally Neurological: Alert awake oriented in person time place and situation, cranial nerves II through XII intact, no motor or sensory deficits appreciated Psych: Appropriate mood, cooperative General: Other (intubated, sedated) Heart: Other (tele SB, distant heart tones) Lungs: Other (decrease bases) Abdomen: Other (obese) Extremities: Normal pulses, Other (2+ bilateral LE edema ) Skin: No significant lesion Labs LABS Laboratory Tests Test 12/14/18 12:30 12/14/18 16:39 12/14/18 20:51 12/14/18 23:52 Heparin Anti-Xa Act, Unfractionated 0.52 IU/mL (0.30-0.70) Glucose (Fingerstick) 201 mg/dL (70-99) 273 mg/dL (70-99) 326 mg/dL (70-99) Test 12/15/18 05:09 12/15/18 05:10 12/15/18 08:00 12/15/18 10:30 Glucose (Fingerstick) 325 mg/dL (70-99) White Blood Count 8.0 x10^3/uL (4.0-11.0) Red Blood Count 3.42 x10^6/uL (4.30-5.70) Hemoglobin 10.6 g/dL (13.0-17.5) Hematocrit 31.8 % (39.0-53.0) Mean Corpuscular Volume 93 fL (79-100) Mean Corpuscular Hemoglobin 31 pg (25-35) Mean Corpuscular Hemoglobin Concent 33 g/dL (31-37) Red Cell Distribution Width 15.2 % (11.5-14.5) Platelet Count 162 x10^3/uL (140-400) Sodium Level 140 mmol/L (136-145) Potassium Level 3.2 mmol/L (3.5-5.1) Chloride Level 100 mmol/L (98-107) Carbon Dioxide Level 27 mmol/L (21-32) Anion Gap 13 (6-14) Blood Urea Nitrogen 24 mg/dL (8-26) Creatinine 1.7 mg/dL (0.7-1.3) Estimated GFR (Cockcroft-Gault) 39.8 Glucose Level 354 mg/dL (70-99) Calcium Level 8.5 mg/dL (8.5-10.1) Procalcitonin 0.21 ng/mL (0.00-0.10) O2 Saturation 94 % (92-99) 95 % (92-99) Arterial Blood pH 7.40 (7.35-7.45) 7.43 (7.35-7.45) Arterial Blood pCO2 at Patient Temp 44 mmHg (35-46) 41 mmHg (35-46) Arterial Blood pO2 at Patient Temp 79 mmHg (65-108) 77 mmHg (65-108) Arterial Blood HCO3 27 mmol/L (21-28) 26 mmol/L (21-28) Arterial Blood Base Excess 2 mmol/L (-3-3) 2 mmol/L (-3-3) FiO2 40 40 Test 12/15/18 11:52 Glucose (Fingerstick) 331 mg/dL (70-99) Assessment and Plan Assessmemt and Plan Problems Medical Problems: (1) CHF (congestive heart failure) Status: Acute (2) Respiratory failure Status: Acute Comment Review of Relevant I have reviewed the following items luis (where applicable) has been applied. Labs Laboratory Tests Test 12/13/18 13:05 12/13/18 13:06 12/13/18 13:10 12/13/18 13:11 White Blood Count 12.3 x10^3/uL (4.0-11.0) Red Blood Count 4.04 x10^6/uL (4.30-5.70) Hemoglobin 12.1 g/dL (13.0-17.5) Hematocrit 38.2 % (39.0-53.0) Mean Corpuscular Volume 95 fL (79-100) Mean Corpuscular Hemoglobin 30 pg (25-35) Mean Corpuscular Hemoglobin Concent 32 g/dL (31-37) Red Cell Distribution Width 15.1 % (11.5-14.5) Platelet Count 222 x10^3/uL (140-400) Neutrophils (%) (Auto) 38 % (31-73) Lymphocytes (%) (Auto) 47 % (24-48) Monocytes (%) (Auto) 11 % (0-9) Eosinophils (%) (Auto) 3 % (0-3) Basophils (%) (Auto) 1 % (0-3) Neutrophils # (Auto) 4.7 x10^3uL (1.8-7.7) Lymphocytes # (Auto) 5.8 x10^3/uL (1.0-4.8) Monocytes # (Auto) 1.3 x10^3/uL (0.0-1.1) Eosinophils # (Auto) 0.4 x10^3/uL (0.0-0.7) Basophils # (Auto) 0.1 x10^3/uL (0.0-0.2) Prothrombin Time 16.0 SEC (11.7-14.0) Prothromb Time International Ratio 1.3 (0.8-1.1) Activated Partial Thromboplast Time 28 SEC (24-38) Sodium Level 138 mmol/L (136-145) Potassium Level 4.0 mmol/L (3.5-5.1) Chloride Level 102 mmol/L (98-107) Carbon Dioxide Level 23 mmol/L (21-32) Anion Gap 13 (6-14) 17 mmol/L (6-14) Blood Urea Nitrogen 25 mg/dL (8-26) Creatinine 1.6 mg/dL (0.7-1.3) Estimated GFR (Cockcroft-Gault) 42.7 BUN/Creatinine Ratio 16 (6-20) Glucose Level 396 mg/dL (70-99) 391 mg/dL (70-99) Calcium Level 8.7 mg/dL (8.5-10.1) Magnesium Level 2.0 mg/dL (1.8-2.4) Total Bilirubin 0.3 mg/dL (0.2-1.0) Aspartate Amino Transf (AST/SGOT) 22 U/L (15-37) Alanine Aminotransferase (ALT/SGPT) 20 U/L (16-63) Alkaline Phosphatase 63 U/L (46-116) Creatine Kinase 74 U/L (39-308) Creatine Kinase MB (Mass) 2.2 ng/mL (0.0-3.6) Creatine Kinase MB Relative Index % (0-4) Troponin I Quantitative < 0.017 ng/mL (0.000-0.055) KB-Myo-G-Type Natriuretic Peptide 514 pg/mL (0-124) Total Protein 8.1 g/dL (6.4-8.2) Albumin 3.4 g/dL (3.4-5.0) Albumin/Globulin Ratio 0.7 (1.0-1.7) Triglycerides Level 347 mg/dL (0-150) Cholesterol Level 218 mg/dL (0-200) LDL Cholesterol, Calculated 113 mg/dL (0-100) VLDL Cholesterol, Calculated 69 mg/dL (0-40) Non-HDL Cholesterol Calculated 182 mg/dL (0-129) HDL Cholesterol 36 mg/dL (40-60) Cholesterol/HDL Ratio 6.1 O2 Saturation 97 % (92-99) Arterial Blood pH 7.16 (7.35-7.45) Arterial Blood pCO2 at Patient Temp 66 mmHg (35-46) Arterial Blood pO2 at Patient Temp 114 mmHg (65-108) Arterial Blood HCO3 23 mmol/L (21-28) Arterial Blood Base Excess -7 mmol/L (-3-3) FiO2 100 Bedside Troponin I 0.02 ng/ml (<0.08) Bedside Hemoglobin 12.6 g/dL (14-18) Bedside Hematocrit 37 % (37-52) Bedside Sodium 140 mmol/L (135-145) Bedside Potassium 4.0 mmol/L (3.5-5.0) Bedside Chloride 104 mmol/L (98-110) Bedside Total CO2 24 mmol/L (23-32) Bedside Blood Urea Nitrogen 24 mg/dL (8-26) Bedside Creatinine 1.3 mg/dL (0.5-1.4) Bedside Ionized Calcium (Giuliana) 1.17 mmol/L (1.13-1.32) Test 12/13/18 13:20 12/13/18 15:45 12/13/18 16:00 12/13/18 16:35 Urine Collection Type U cath Urine Color Yellow Urine Clarity Clear Urine pH 5.5 Urine Specific [place] 1.015 Urine Protein 100 mg/dL (NEG-TRACE) Urine Glucose (UA) >=1000 mg/dL (NEG) Urine Ketones (Stick) Negative mg/dL (NEG) Urine Blood Small (NEG) Urine Nitrite Negative (NEG) Urine Bilirubin Negative (NEG) Urine Urobilinogen Dipstick 0.2 mg/dL (0.2 mg/dL) Urine Leukocyte Esterase Negative (NEG) Urine RBC 11-20 /HPF (0-2) Urine WBC 0 /HPF (0-4) Urine Amorphous Sediment Present /HPF Urine Bacteria 0 /HPF (0-FEW) Urine Hyaline Casts Moderate /HPF Urine Mucus Slight /LPF Nasal Screen MRSA (PCR) Negative (Negative) O2 Saturation 93 % (92-99) Arterial Blood pH 7.36 (7.35-7.45) Arterial Blood pCO2 at Patient Temp 48 mmHg (35-46) Arterial Blood pO2 at Patient Temp 71 mmHg (65-108) Arterial Blood HCO3 26 mmol/L (21-28) Arterial Blood Base Excess 0 mmol/L (-3-3) FiO2 60 Troponin I Quantitative 1.143 ng/mL (0.000-0.055) Thyroid Stimulating Hormone (TSH) 3.085 uIU/mL (0.358-3.74) Test 12/13/18 19:58 12/13/18 23:31 12/14/18 05:00 12/14/18 07:40 Troponin I Quantitative 3.573 ng/mL (0.000-0.055) Glucose (Fingerstick) 192 mg/dL (70-99) White Blood Count 7.3 x10^3/uL (4.0-11.0) Red Blood Count 3.36 x10^6/uL (4.30-5.70) Hemoglobin 10.2 g/dL (13.0-17.5) Hematocrit 30.9 % (39.0-53.0) Mean Corpuscular Volume 92 fL (79-100) Mean Corpuscular Hemoglobin 30 pg (25-35) Mean Corpuscular Hemoglobin Concent 33 g/dL (31-37) Red Cell Distribution Width 15.2 % (11.5-14.5) Platelet Count 165 x10^3/uL (140-400) Neutrophils (%) (Auto) 68 % (31-73) Lymphocytes (%) (Auto) 19 % (24-48) Monocytes (%) (Auto) 11 % (0-9) Eosinophils (%) (Auto) 1 % (0-3) Basophils (%) (Auto) 1 % (0-3) Neutrophils # (Auto) 5.0 x10^3uL (1.8-7.7) Lymphocytes # (Auto) 1.4 x10^3/uL (1.0-4.8) Monocytes # (Auto) 0.8 x10^3/uL (0.0-1.1) Eosinophils # (Auto) 0.1 x10^3/uL (0.0-0.7) Basophils # (Auto) 0.0 x10^3/uL (0.0-0.2) Heparin Anti-Xa Act, Unfractionated 0.27 IU/mL (0.30-0.70) Sodium Level 142 mmol/L (136-145) Potassium Level 3.6 mmol/L (3.5-5.1) Chloride Level 102 mmol/L (98-107) Carbon Dioxide Level 29 mmol/L (21-32) Anion Gap 11 (6-14) Blood Urea Nitrogen 23 mg/dL (8-26) Creatinine 1.4 mg/dL (0.7-1.3) Estimated GFR (Cockcroft-Gault) 49.8 Glucose Level 168 mg/dL (70-99) Calcium Level 8.6 mg/dL (8.5-10.1) Phosphorus Level 3.7 mg/dL (2.6-4.7) Magnesium Level 1.9 mg/dL (1.8-2.4) O2 Saturation 92 % (92-99) Arterial Blood pH 7.51 (7.35-7.45) Arterial Blood pCO2 at Patient Temp 34 mmHg (35-46) Arterial Blood pO2 at Patient Temp 61 mmHg (65-108) Arterial Blood HCO3 26 mmol/L (21-28) Arterial Blood Base Excess 4 mmol/L (-3-3) FiO2 40 Test 12/14/18 12:30 12/14/18 16:39 12/14/18 20:51 12/14/18 23:52 Heparin Anti-Xa Act, Unfractionated 0.52 IU/mL (0.30-0.70) Glucose (Fingerstick) 201 mg/dL (70-99) 273 mg/dL (70-99) 326 mg/dL (70-99) Test 12/15/18 05:09 12/15/18 05:10 12/15/18 08:00 12/15/18 10:30 Glucose (Fingerstick) 325 mg/dL (70-99) White Blood Count 8.0 x10^3/uL (4.0-11.0) Red Blood Count 3.42 x10^6/uL (4.30-5.70) Hemoglobin 10.6 g/dL (13.0-17.5) Hematocrit 31.8 % (39.0-53.0) Mean Corpuscular Volume 93 fL (79-100) Mean Corpuscular Hemoglobin 31 pg (25-35) Mean Corpuscular Hemoglobin Concent 33 g/dL (31-37) Red Cell Distribution Width 15.2 % (11.5-14.5) Platelet Count 162 x10^3/uL (140-400) Sodium Level 140 mmol/L (136-145) Potassium Level 3.2 mmol/L (3.5-5.1) Chloride Level 100 mmol/L (98-107) Carbon Dioxide Level 27 mmol/L (21-32) Anion Gap 13 (6-14) Blood Urea Nitrogen 24 mg/dL (8-26) Creatinine 1.7 mg/dL (0.7-1.3) Estimated GFR (Cockcroft-Gault) 39.8 Glucose Level 354 mg/dL (70-99) Calcium Level 8.5 mg/dL (8.5-10.1) Procalcitonin 0.21 ng/mL (0.00-0.10) O2 Saturation 94 % (92-99) 95 % (92-99) Arterial Blood pH 7.40 (7.35-7.45) 7.43 (7.35-7.45) Arterial Blood pCO2 at Patient Temp 44 mmHg (35-46) 41 mmHg (35-46) Arterial Blood pO2 at Patient Temp 79 mmHg (65-108) 77 mmHg (65-108) Arterial Blood HCO3 27 mmol/L (21-28) 26 mmol/L (21-28) Arterial Blood Base Excess 2 mmol/L (-3-3) 2 mmol/L (-3-3) FiO2 40 40 Test 12/15/18 11:52 Glucose (Fingerstick) 331 mg/dL (70-99) Laboratory Tests Test 12/14/18 12:30 12/14/18 16:39 12/14/18 20:51 12/14/18 23:52 Heparin Anti-Xa Act, Unfractionated 0.52 IU/mL (0.30-0.70) Glucose (Fingerstick) 201 mg/dL (70-99) 273 mg/dL (70-99) 326 mg/dL (70-99) Test 12/15/18 05:09 12/15/18 05:10 12/15/18 08:00 12/15/18 10:30 Glucose (Fingerstick) 325 mg/dL (70-99) White Blood Count 8.0 x10^3/uL (4.0-11.0) Red Blood Count 3.42 x10^6/uL (4.30-5.70) Hemoglobin 10.6 g/dL (13.0-17.5) Hematocrit 31.8 % (39.0-53.0) Mean Corpuscular Volume 93 fL (79-100) Mean Corpuscular Hemoglobin 31 pg (25-35) Mean Corpuscular Hemoglobin Concent 33 g/dL (31-37) Red Cell Distribution Width 15.2 % (11.5-14.5) Platelet Count 162 x10^3/uL (140-400) Sodium Level 140 mmol/L (136-145) Potassium Level 3.2 mmol/L (3.5-5.1) Chloride Level 100 mmol/L (98-107) Carbon Dioxide Level 27 mmol/L (21-32) Anion Gap 13 (6-14) Blood Urea Nitrogen 24 mg/dL (8-26) Creatinine 1.7 mg/dL (0.7-1.3) Estimated GFR (Cockcroft-Gault) 39.8 Glucose Level 354 mg/dL (70-99) Calcium Level 8.5 mg/dL (8.5-10.1) Procalcitonin 0.21 ng/mL (0.00-0.10) O2 Saturation 94 % (92-99) 95 % (92-99) Arterial Blood pH 7.40 (7.35-7.45) 7.43 (7.35-7.45) Arterial Blood pCO2 at Patient Temp 44 mmHg (35-46) 41 mmHg (35-46) Arterial Blood pO2 at Patient Temp 79 mmHg (65-108) 77 mmHg (65-108) Arterial Blood HCO3 27 mmol/L (21-28) 26 mmol/L (21-28) Arterial Blood Base Excess 2 mmol/L (-3-3) 2 mmol/L (-3-3) FiO2 40 40 Test 12/15/18 11:52 Glucose (Fingerstick) 331 mg/dL (70-99) Microbiology 12/13/18 Blood Culture - Preliminary, Resulted NO GROWTH AFTER 1 DAY 12/14/18 - Final, Resulted 12/14/18 - Final, Resulted 12/14/18 - Final, Resulted 12/14/18 - Final, Resulted 12/14/18 - Final, Resulted 12/14/18 - Final, Resulted 12/14/18 Gram Stain Evaluation - Final, Resulted 12/14/18 Sputum Culture, Resulted Pending Medications Current Medications Iodixanol (Visipaque 320) 100 ml STK-MED ONCE .ROUTE ; Start 12/13/18 at 12:53; Stop 12/13/18 at 12:54; Status DC Lidocaine HCl (Lidocaine 1% 20ml Vial) 20 ml STK-MED ONCE .ROUTE ; Start at 12:53; Stop 12/13/18 at 12:54; Status DC Heparin Sodium/ Sodium Chloride 1,000 ml @ As Directed STK-MED ONCE .ROUTE ; Start 12/13/18 at 12:53; Stop 12/13/18 at 12:54; Status DC Methylprednisolone Sodium Succinate (SOLU-Medrol 125MG VIAL) 125 mg STK-MED ONCE .ROUTE ; Start 12/13/18 at 12:57; Stop 12/13/18 at 12:58; Status DC Fentanyl Citrate (Fentanyl 2ml Vial) 100 mcg STK-MED ONCE .ROUTE ; Start at 12:57; Stop 12/13/18 at 12:58; Status DC Midazolam HCl (Versed) 2 mg STK-MED ONCE .ROUTE ; Start 12/13/18 at 12:57; Stop 12/13/18 at 12:58; Status DC Heparin Sodium (Porcine) (Heparin Sodium) 10,000 unit STK-MED ONCE .ROUTE ; Start 12/13/18 at 12:57; Stop 12/13/18 at 12:58; Status DC Verapamil HCl (Verapamil) 5 mg STK-MED ONCE .ROUTE ; Start 12/13/18 at 12:57; Stop 12/13/18 at 12:58; Status DC Famotidine (Pepcid Vial) 20 mg STK-MED ONCE .ROUTE ; Start 12/13/18 at 12:57; Stop 12/13/18 at 12:58; Status DC Diphenhydramine HCl (Benadryl) 50 mg STK-MED ONCE .ROUTE ; Start 12/13/18 at 12: 57; Stop 12/13/18 at 12:58; Status DC Nitroglycerin (Nitroglycerin) 200 mcg STK-MED ONCE .ROUTE ; Start 12/13/18 at 12 :57; Stop 12/13/18 at 12:58; Status DC Nitroglycerin/ Dextrose 250 ml @ As Directed STK-MED ONCE IV ; Start 12/13/18 at 13:04; Stop 12/13/18 at 13:05; Status DC Furosemide (Lasix) 100 mg STK-MED ONCE .ROUTE ; Start 12/13/18 at 13:07; Stop at 13:08; Status DC Nitroglycerin/ Dextrose 250 ml @ 0 mls/hr 1X ONCE IV Last administered on 12/13at 13:11; Start 12/13/18 at 13:15; Stop 12/13/18 at 13:16; Status DC Furosemide (Lasix) 80 mg 1X ONCE IVP Last administered on 12/13/18at 13:12; Start 12/13/18 at 13:15; Stop 12/13/18 at 13:16; Status DC Propofol 50 ml @ As Directed STK-MED ONCE IV ; Start 12/13/18 at 13:25; Stop at 13:26; Status DC Propofol 50 ml @ 1.857 mls/ hr 1X ONCE IV Last administered on 12/13/18at 13: 31; Start 12/13/18 at 13:30; Stop 12/13/18 at 21:10; Status DC Oxycodone HCl (Roxicodone) 5 mg PRN Q3HRS PRN PO MODERATE-SEVERE PAIN; Start at 14:15; Stop 12/14/18 at 07:57; Status DC Acetaminophen (Tylenol) 650 mg PRN Q6HRS PRN PO Headaches, Temp > 101.5'; Start 12/13/18 at 14:15; Stop 12/14/18 at 07:56; Status DC Lorazepam (Ativan) 0.5 mg PRN Q6HRS PRN IV ANXIETY / AGITATION; Start 12/13/18 at 14:15 Ondansetron HCl (Zofran) 4 mg PRN Q6HRS PRN IV NAUSEA/VOMITING; Start 12/13/18 at 14:15 Famotidine (Pepcid Vial) 20 mg BID IVP Last administered on 12/15/18at 09:23; Start 12/13/18 at 21:00 Info (Icu Electrolyte Protocol) 1 ea DAILY MC Last administered on 12/15/18at 09 :00; Start 12/14/18 at 09:00 Heparin Sodium (Porcine) (Heparin Sodium) 5,000 unit Q8HRS SQ ; Start 12/13/18 at 22:00; Stop 12/13/18 at 22:37; Status DC Sodium Chloride (Normal Saline Flush) 3 ml QSHIFT PRN IV AFTER MEDS AND BLOOD DRAWS; Start 12/13/18 at 14:15 Morphine Sulfate (Morphine Sulfate) 2 mg PRN Q1HR PRN IV PAIN MILD TO MOD; Start 12/13/18 at 14:15 Senna/Docusate Sodium (Senna Plus) 1 tab BID PO Last administered on 12/13/18at 22:51; Start 12/13/18 at 21:00; Stop 12/14/18 at 08:00; Status DC Amlodipine Besylate (Norvasc) 10 mg DAILY PO Last administered on 12/14/18at 08: 34; Start 12/14/18 at 09:00; Stop 12/14/18 at 10:00; Status DC Aspirin (Children'S Aspirin) 81 mg DAILY FT Last administered on 12/15/18at 09: 21; Start 12/14/18 at 09:00 Clopidogrel Bisulfate (Plavix) 75 mg DAILY FT Last administered on 12/15/18at 09 :21; Start 12/14/18 at 09:00 Furosemide (Lasix) 40 mg DAILY PO ; Start 12/14/18 at 09:00; Stop 12/14/18 at 09 :00; Status DC Insulin Glargine (Lantus) 70 units QHS SQ Last administered on 12/14/18at 20:52 ; Start 12/13/18 at 21:00 Lisinopril (Prinivil) 40 mg DAILY FT Last administered on 12/15/18at 09:22; Start 12/14/18 at 09:00 Metoprolol Tartrate (Lopressor) 25 mg BID PO ; Start 12/13/18 at 21:00; Stop at 21:00; Status DC Nitroglycerin (Nitrostat) 0.4 mg PRN Q5MIN PRN SL CHEST PAIN; Start 12/13/18 at 14:15 Potassium Chloride (Klor-Con) 20 meq DAILY PO ; Start 12/14/18 at 09:00; Stop at 09:00; Status DC Levothyroxine Sodium (Synthroid) 200 mcg DAILY06 PO ; Start 12/14/18 at 06:00; Stop 12/14/18 at 07:56; Status DC Atorvastatin Calcium (Lipitor) 10 mg QHS PO Last administered on 12/13/18at 22: 51; Start 12/13/18 at 21:00; Stop 12/14/18 at 10:03; Status DC Enoxaparin Sodium (Lovenox 40mg Syringe) 40 mg Q24H SQ ; Start 12/13/18 at 14:30 ; Stop 12/13/18 at 14:30; Status DC Famotidine (Pepcid Vial) 20 mg QHS IVP ; Start 12/13/18 at 21:00; Stop 12/13/18 at 21:00; Status DC Albuterol/ Ipratropium (Duoneb) 3 ml RTQID NEB Last administered on 12/15/18at 11:55; Start 12/13/18 at 16:00 Etomidate (Amidate) 20 mg STK-MED ONCE IV ; Start 12/13/18 at 15:01; Stop at 15:02; Status DC Succinylcholine Chloride (Anectine) 200 mg STK-MED ONCE .ROUTE ; Start 12/13/18 at 15:02; Stop 12/13/18 at 15:03; Status DC Propofol 100 ml @ 1.857 mls/ hr CONT PRN IV SEE I/O RECORD Last administered on 12/15/18 05:36; Start 12/13/18 at 15:15 Furosemide (Lasix) 40 mg DAILY IVP Last administered on 12/15/18 09:23; Start 12/14/18 at 09:00 Fentanyl Citrate (Fentanyl 2ml Vial) 50 mcg PRN Q2HR PRN IV PAIN SEVERE Last administered on 12/14/18 21:29; Start 12/13/18 at 19:15 Heparin Sodium/ Dextrose 500 ml @ 0 mls/hr CONT PRN IV SEE I/O RECORD Last administered on 12/14/18 13:10; Start 12/13/18 at 22:45; Stop 12/15/18 at 09:13 ; Status DC Heparin Sodium (Porcine) (Heparin Sodium) 3,300 unit PRN Q6HRS PRN IV FOR UFH LEVEL LESS THAN 0.2 Last administered on 3/18/19at 22:50; Start 12/13/18 at 22: 45; Stop 12/15/18 at 09:13; Status DC Info (Anti-Coagulation Monitoring By Pharmacy) 1 each PRN DAILY PRN MC SEE COMMENTS Last administered on 12/14/18 09:56; Start 12/13/18 at 22:45; Stop at 09:13; Status DC Acetaminophen (Tylenol) 650 mg PRN Q6HRS PRN FT Headaches, Temp > 101.5'; Start 12/14/18 at 08:00 Levothyroxine Sodium (Synthroid) 200 mcg DAILY06 FT Last administered on 08:34; Start 12/14/18 at 07:56 Oxycodone HCl (Roxicodone) 5 mg PRN Q3HRS PRN FT MODERATE-SEVERE PAIN; Start at 07:57 Potassium Chloride (KCl Oral Soln) 20 meq DAILY PEG Last administered on 09:20; Start 12/14/18 at 09:00 Docusate Sodium (Colace Solution) 100 mg BID FT Last administered on 12/15/18 09:20; Start 12/14/18 at 09:00 Senna (Senna Oral Syrup) 528 mg BID FT Last administered on 12/15/18 09:24; Start 12/14/18 at 09:00 Amlodipine Besylate (Norvasc) 10 mg DAILY FT Last administered on 12/15/18 09: 25; Start 12/14/18 at 10:00 Atorvastatin Calcium (Lipitor) 10 mg QHS FT Last administered on 12/14/18 20: 48; Start 12/14/18 at 21:00 Piperacillin Sod/ Tazobactam Sod (Zosyn Per Pharmacy) 1 each PRN DAILY PRN MC SEE COMMENTS; Start 12/14/18 at 11:30 Piperacillin Sod/ Tazobactam Sod 3.375 gm/Sodium Chloride 50 ml @ 100 mls/hr Q6HRS IV Last administered on 12/15/18at 11:00; Start 12/14/18 at 12:00 Iodixanol (Visipaque 320) 100 ml STK-MED ONCE .ROUTE ; Start 12/14/18 at 13:55; Stop 12/14/18 at 13:56; Status DC Heparin Sodium/ Sodium Chloride 1,000 ml @ As Directed STK-MED ONCE .ROUTE ; Start 12/14/18 at 13:56; Stop 12/14/18 at 13:57; Status DC Lidocaine HCl (Xylocaine-Mpf 1% 2ml Vial) 2 ml STK-MED ONCE .ROUTE ; Start 12/14 at 13:56; Stop 12/14/18 at 13:57; Status DC Methylprednisolone Sodium Succinate (SOLU-Medrol 125MG VIAL) 125 mg STK-MED ONCE .ROUTE ; Start 12/14/18 at 15:06; Stop 12/14/18 at 15:07; Status DC Diphenhydramine HCl (Benadryl) 50 mg STK-MED ONCE .ROUTE ; Start 12/14/18 at 15: 06; Stop 12/14/18 at 15:07; Status DC Heparin Sodium (Porcine) (Heparin Sodium) 10,000 unit STK-MED ONCE .ROUTE ; Start 12/14/18 at 15:13; Stop 12/14/18 at 15:14; Status DC Verapamil HCl (Verapamil) 5 mg STK-MED ONCE .ROUTE ; Start 12/14/18 at 15:13; Stop 12/14/18 at 15:14; Status DC Nitroglycerin (Nitroglycerin) 200 mcg STK-MED ONCE .ROUTE ; Start 12/14/18 at 15 :14; Stop 12/14/18 at 15:15; Status DC Nitroglycerin (Nitroglycerin) 200 mcg 1X ONCE IART Last administered on at 15:35; Start 12/14/18 at 15:30; Stop 12/14/18 at 15:31; Status DC Verapamil HCl (Verapamil) 2.5 mg 1X ONCE IART Last administered on 12/14/18at 15:35; Start 12/14/18 at 15:30; Stop 12/14/18 at 15:31; Status DC Heparin Sodium (Porcine) (Heparin Sodium) 2,500 unit 1X ONCE IART Last administered on 12/14/18at 15:34; Start 12/14/18 at 15:30; Stop 12/14/18 at 15:31 ; Status DC Heparin Sodium/ Sodium Chloride (HEPARIN for ARTERIAL LINE FLUSH) 1,000 unit 1X ONCE IART Last administered on 12/14/18at 15:33; Start 12/14/18 at 15:30; Stop 12/14/18 at 15:31; Status DC Heparin Sodium/ Sodium Chloride (HEPARIN for ARTERIAL LINE FLUSH) 1,000 unit 1X ONCE IART Last administered on 12/14/18at 15:34; Start 12/14/18 at 15:30; Stop 12/14/18 at 15:31; Status DC Iodixanol (Visipaque 320) 100 ml 1X ONCE IART Last administered on 12/14/18at 15:33; Start 12/14/18 at 15:30; Stop 12/14/18 at 15:31; Status DC Lidocaine HCl (Xylocaine-Mpf 1% 2ml Vial) 2 ml 1X ONCE INJ Last administered on 12/14/18 15:34; Start 12/14/18 at 15:30; Stop 12/14/18 at 15:31; Status DC Methylprednisolone Sodium Succinate (SOLU-Medrol 125MG VIAL) 125 mg 1X ONCE IV Last administered on 12/14/18at 15:35; Start 12/14/18 at 15:30; Stop 12/14/18 at 15:31; Status DC Diphenhydramine HCl (Benadryl) 50 mg 1X ONCE IVP Last administered on 15:35; Start 12/14/18 at 15:30; Stop 12/14/18 at 15:31; Status DC Info (CONTRAST GIVEN -- Rx MONITORING) 1 each PRN DAILY PRN MC SEE COMMENTS; Start 12/14/18 at 15:30; Stop 12/16/18 at 15:29 Epinephrine HCl (EPINEPHrine SYRINGE) 1 mg STK-MED ONCE .ROUTE ; Start 12/13/18 at 12:00; Stop 12/14/18 at 15:50; Status DC Insulin Glargine (Lantus) 12 units BID SQ ; Start 12/14/18 at 21:00; Status UNV Insulin Human Lispro (HumaLOG) 0-7 UNITS TIDWMEALS SQ Last administered on 12/14at 17:04; Start 12/14/18 at 17:00; Stop 12/14/18 at 21:44; Status DC Dextrose (Dextrose 50%-Water Syringe) 12.5 gm PRN Q15MIN PRN IV SEE COMMENTS; Start 12/14/18 at 16:45 Sodium Chloride (Normal Saline Flush) 3 ml QSHIFT PRN IV AFTER MEDS AND BLOOD DRAWS; Start 12/14/18 at 16:45 Nitroglycerin (Nitrostat) 0.4 mg PRN Q5MIN PRN SL CHEST PAIN; Start 12/14/18 at 16:45 Multi-Ingred Cream/Lotion/Oil/ Oint (Artificial Tears Eye Ointment) 1 shae PRN Q1HR PRN OU DRY EYE Last administered on 12/15/18at 09:41; Start 12/14/18 at 18: 45 Insulin Human Lispro (HumaLOG) 0-7 UNITS Q6HRS SQ Last administered on at 11:55; Start 12/15/18 at 00:00 Potassium Chloride (KCl Oral Soln) 40 meq 1X ONCE PO Last administered on 12/15at 07:44; Start 12/15/18 at 07:00; Stop 12/15/18 at 07:01; Status DC Enoxaparin Sodium (Lovenox 40mg Syringe) 40 mg Q24H SQ ; Start 12/15/18 at 12:30 ; Status UNV Active Scripts Active Reported Janumet 50-1,000 Mg Tablet (Sitagliptin Phos/Metformin Hcl) 1 Each Tablet 2 Tab PO QEVNG Clopidogrel (Clopidogrel Bisulfate) 75 Mg Tablet 1 Tab PO DAILY Levothyroxine Sodium 200 Mcg Tablet 1 Tab PO DAILY Lisinopril 40 Mg Tablet 40 Mg PO DAILY Klor-Con M20 (Potassium Chloride) 20 Meq Tab.er.prt 20 Meq PO DAILY Metformin Hcl Er (Metformin Hcl) 1,000 Mg Tab.er.24 1 Tab PO BID NITROGLYCERIN SubLingual (Nitroglycerin) 0.4 Mg Tab.subl 0.4 Mg SL PRN Q5MIN PRN Glimepiride 4 Mg Tablet 1 Tab PO DAILY Lantus Solostar (Insulin Glargine,Hum.rec.anlog) 100 Unit/1 Ml Insuln.pen 70 Unit SQ QHS Pravastatin Sodium 40 Mg Tablet 1 Tab PO QHS Amlodipine Besylate 10 Mg Tablet 10 Mg PO DAILY Aspir 81 (Aspirin) 81 Mg Tablet.dr 1 Tab PO DAILY Metoprolol Tartrate 25 Mg Tablet 1 Tab PO BID Furosemide 40 Mg Tablet 1 Tab PO DAILY Vitals/I & O Vital Sign - Last 24 Hours 12/14/18 12/14/18 12/14/18 12/14/18 13:00 14:00 14:15 15:35 Pulse 64 64 84 Resp 16 16 B/P (MAP) 130/58 (82) 130/58 (82) Pulse Ox 98 98 94 O2 Delivery Ventilator Ventilator Ventilator 12/14/18 12/14/18 12/14/18 12/14/18 15:40 15:50 16:00 16:00 Temp 99.2 99.2 Pulse 79 74 62 Resp 20 25 23 B/P (MAP) 143/52 (82) 140/58 (85) Pulse Ox 94 95 95 O2 Delivery Ventilator Ventilator Mechanical Ventilator Ventilator 12/14/18 12/14/18 12/14/18 12/14/18 16:30 16:45 17:00 17:00 Pulse 68 66 64 Resp 23 23 23 B/P (MAP) 118/60 (79) 120/60 (80) 116/58 (77) Pulse Ox 95 95 96 95 O2 Delivery Ventilator Ventilator Ventilator Ventilator 12/14/18 12/14/18 12/14/18 12/14/18 18:00 19:00 19:43 19:58 Pulse 68 55 Resp 23 16 B/P (MAP) 135/60 (85) 136/44 (74) Pulse Ox 95 93 95 O2 Delivery Ventilator Ventilator Mechanical Ventilator Ventilator 12/14/18 12/14/18 12/14/18 12/14/18 20:00 21:00 21:40 22:00 Temp 98.6 98.6 Pulse 55 66 60 Resp 16 18 16 B/P (MAP) 123/54 (77) 134/48 (76) 114/42 (66) Pulse Ox 96 98 95 98 O2 Delivery Ventilator Ventilator Ventilator Ventilator 12/14/18 12/15/18 12/15/18 12/15/18 23:00 00:00 00:00 00:05 Temp 98.5 98.5 Pulse 58 68 Resp 18 18 B/P (MAP) 112/41 (64) 144/48 (80) Pulse Ox 93 95 95 O2 Delivery Ventilator Mechanical Ventilator Ventilator Ventilator 12/15/18 12/15/18 12/15/18 12/15/18 01:00 02:00 03:00 03:10 Pulse 74 68 61 Resp 17 16 16 B/P (MAP) 150/55 (86) 142/58 (86) 116/41 (66) Pulse Ox 94 92 94 94 O2 Delivery Ventilator Ventilator Ventilator Ventilator 12/15/18 12/15/18 12/15/18 12/15/18 03:38 04:00 05:00 05:20 Temp 98.5 98.5 Pulse 62 59 Resp 17 16 B/P (MAP) 128/46 (73) 131/46 (74) Pulse Ox 94 93 94 O2 Delivery Mechanical Ventilator Ventilator Ventilator Ventilator 12/15/18 12/15/18 12/15/18 12/15/18 06:00 07:48 07:55 08:00 Temp 98.6 98.6 Pulse 56 68 Resp 16 16 B/P (MAP) 148/50 (82) 137/52 (80) Pulse Ox 94 95 95 O2 Delivery Ventilator Ventilator Ventilator Mechanical Ventilator 12/15/18 12/15/18 12/15/18 12/15/18 09:10 09:22 09:25 09:28 Pulse 84 78 86 B/P (MAP) 157/84 (108) 147/61 147/61 Pulse Ox 95 96 O2 Delivery Ventilator Ventilator 12/15/18 12/15/18 12/15/18 10:11 10:22 11:58 B/P (MAP) 182/83 (116) Pulse Ox 98 96 O2 Delivery Ventilator Ventilator Nasal Cannula O2 Flow Rate 4.0 Intake and Output 12/14/18 12/14/18 12/15/18 14:59 22:59 06:59 Intake Total 604 ml 210 ml 1228 ml Output Total 1615 ml 1020 ml 605 ml Balance -1011 ml -810 ml 623 ml YIMI GE MD Dec 15, 2018 12:28
--- NOTE | 2018-12-15 16:08 | PDOC ---
TOM RODRIGUEZ [employer] 12/15/18 1608: CARDIO Progress Notes Date and Time Date of Service 12/15/2018 Time of Evaluation 1440 Subjective Subjective: No Chest Pain, No shortness of breath, No Palpitations Vitals Vitals Vital Signs Date Time Temp Pulse Resp B/P (MAP) Pulse Ox O2 Delivery O2 Flow Rate FiO2 12/15/18 15:11 93 Nasal Cannula 3.0 12/15/18 14:00 102 169/63 (98) 12/15/18 07:48 98.6 16 98.6 Weight Weight [ ] Input and Output Intake and Output Intake and Output 12/15/18 07:00 Intake Total 2042 ml Output Total 3140 ml Balance -1098 ml Intake Oral 0 ml IV Total 1266 ml Tube Feeding 726 ml Other 50 ml Output Urine Total 3140 ml Gastric Drainage Total 0 ml Laboratory Labs Laboratory Tests Test 12/14/18 16:39 12/14/18 20:51 12/14/18 23:52 12/15/18 05:09 Glucose (Fingerstick) 201 mg/dL (70-99) 273 mg/dL (70-99) 326 mg/dL (70-99) 325 mg/dL (70-99) Test 12/15/18 05:10 12/15/18 08:00 12/15/18 10:30 12/15/18 11:52 White Blood Count 8.0 x10^3/uL (4.0-11.0) Red Blood Count 3.42 x10^6/uL (4.30-5.70) Hemoglobin 10.6 g/dL (13.0-17.5) Hematocrit 31.8 % (39.0-53.0) Mean Corpuscular Volume 93 fL (79-100) Mean Corpuscular Hemoglobin 31 pg (25-35) Mean Corpuscular Hemoglobin Concent 33 g/dL (31-37) Red Cell Distribution Width 15.2 % (11.5-14.5) Platelet Count 162 x10^3/uL (140-400) Sodium Level 140 mmol/L (136-145) Potassium Level 3.2 mmol/L (3.5-5.1) Chloride Level 100 mmol/L (98-107) Carbon Dioxide Level 27 mmol/L (21-32) Anion Gap 13 (6-14) Blood Urea Nitrogen 24 mg/dL (8-26) Creatinine 1.7 mg/dL (0.7-1.3) Estimated GFR (Cockcroft-Gault) 39.8 Glucose Level 354 mg/dL (70-99) Calcium Level 8.5 mg/dL (8.5-10.1) Procalcitonin 0.21 ng/mL (0.00-0.10) O2 Saturation 94 % (92-99) 95 % (92-99) Arterial Blood pH 7.40 (7.35-7.45) 7.43 (7.35-7.45) Arterial Blood pCO2 at Patient Temp 44 mmHg (35-46) 41 mmHg (35-46) Arterial Blood pO2 at Patient Temp 79 mmHg (65-108) 77 mmHg (65-108) Arterial Blood HCO3 27 mmol/L (21-28) 26 mmol/L (21-28) Arterial Blood Base Excess 2 mmol/L (-3-3) 2 mmol/L (-3-3) FiO2 40 40 Glucose (Fingerstick) 331 mg/dL (70-99) Test 12/15/18 14:21 Glucose (Fingerstick) 247 mg/dL (70-99) Microbiology Micro Microbiology 12/13/18 Blood Culture - Preliminary, Resulted NO GROWTH AFTER 1 DAY 12/14/18 - Final, Resulted 12/14/18 - Final, Resulted 12/14/18 - Final, Resulted 12/14/18 - Final, Resulted 12/14/18 - Final, Resulted 12/14/18 - Final, Resulted 12/14/18 Gram Stain Evaluation - Final, Resulted 12/14/18 Sputum Culture, Resulted Pending Physical Exam HEENT: Neck Supple W Full Motion Chest: Symmetric LUNGS: Other (diminished bases) Heart: RRR (SR LBBB), no murmurs, other (S4) Abdomen: Soft N/T Extremities: No Calf Tenderness, Other (1+ bilateral LE pitting edema) Neurology: alert, oriented, follow commands Other Exams right wrist arteriotomy site intact, no erythema, neurovascular status to right hand intact Assessment Assessment 1. Acute on chronic respiratory failure with systolic CHF and possibly ARACELI 2. Acute on chronic systolic CHF: better compesnated 3. ICM; EF 40-45%. 4. Arrhythmia; presently SB rate 45-50. 10 sec pause likely induced by hypoxia 5. CAD: LHC revealed unchanged findings by comparison. LCx stent patent 6. Hypertension; labile 7. Hyperlipidemia; statin 8. PAFIB: SR with LBBB 9. Diabetes, II 10. WILLA: Cr 1.7 11. Morbid obesity Recommendations 1. DAPT. Will discuss with primary barrel maker will need eliquis for stroke prevention. 2. Continue with lasix therapy 3. Continue secondary prevention measures and optimize BP control and will add low dose coreg Pt has not had any bradycardia episode since that initial episode and no episode with prior propofol as well. Will plan for MCOT and note any further bradyarrhythmia episodes. 4. Lung optimization as per pulmonary HUMZA LINDQUIST MD 12/15/18 1849: CARDIO Progress Notes Plan Plan Pt. seen and examined. AGree with above [employer] note. No acute events. Currently in SR. Extubated sitting up eating. Doing well. Continue medical therapy. No indication for anticoag at this time. Outpt event monitor. TOM RODRIGUEZ APRN Dec 15, 2018 16:08 HUMZA LINDQUIST MD Dec 15, 2018 18:49
[2018-12-15] MEDS ORDERED: CARVEDILOL 6.25 MG TABLET. PO SCH (17:00)
[2018-12-15] MEDS: CARVEDILOL 3.125 MG TABLET. PO SCH (17:04)
[2018-12-15] MEDS: ENOXAPARIN 40 MG/0.4 ML SYRINGE. SQ SCH (17:04)
[2018-12-15] MEDS: INSULIN GLARGINE 300 UNITS/3 ML INSULN.PEN. SQ SCH (21:00)
[2018-12-15] MEDS: ATORVASTATIN CALCIUM 10 MG TABLET. FT SCH (21:09)
[2018-12-16] VITALS (14 sets, daily range): BP systolic 97–185; BP diastolic 42–81
[2018-12-16] MEDS: INSULIN LISPRO 300 UNITS/3 ML INSULN.PEN. SQ SCH ×4 (00:06→18:09)
[2018-12-16] MEDS: PIPERACILLIN/TAZOBACTAM 3.375 GM in IV NORMAL SALINE 50ML 50 ML IV SCH ×4 (00:07→18:06)
[2018-12-16 00:11] LABS: MAGNESIUM 2.1 mg/dL (1.8-2.4); POTASSIUM 3.8 mmol/L (3.5-5.1)
[2018-12-16] MEDS: LEVOTHYROXINE 100 MCG TABLET FT SCH (05:42)
[2018-12-16] MEDS ORDERED: DEXTROSE 50% 25 GM / 50ML DISP.SYRIN. IV PRN (07:45)
--- NOTE | 2018-12-16 08:36 | RAD ---
Single view of the chest. 12/16/2018 9:00 AM Indication: RESPIRATORY FAILURE Comparison: Chest radiograph, yesterday Findings: Interval extubation and removal of enteric tube. Improved aeration of the left lung base is noted in the interim. Mild persistent atelectasis or effusion may be present. Cardiomegaly persists. No pneumothorax is identified. No acute osseous changes are seen. IMPRESSION: 1. Interval extubation and removal of enteric tube 2. Improved aeration of the left lung base in the interim with possible mild persistent atelectasis or minimal effusion Electronically signed by: Quintin Guy MD (12/16/2018 8:33 AM) [id number]
[2018-12-16] MEDS: IPRATRPIUM/ALBUTEROL 0.5/2.5MG 3 ML NEBU. NEB SCH ×4 (08:38→19:34)
[2018-12-16] MEDS: ELECTROLYTE (ICU) PROTOCOL. MC SCH (09:00)
[2018-12-16] MEDS: CARVEDILOL 3.125 MG TABLET. PO SCH ×2 (09:12→18:07)
[2018-12-16] MEDS: LACTOBACILLUS RHAMNOSUS GG 1 CAPSULE. PO SCH ×2 (09:12→20:35)
[2018-12-16] MEDS: CLOPIDOGREL BISULFATE 75 MG TABLET FT SCH (09:13)
[2018-12-16] MEDS: LISINOPRIL 20 MG TABLET FT SCH (09:13)
[2018-12-16] MEDS: amLODIPine BESYLATE 10 MG TABLET FT SCH (09:13)
[2018-12-16] MEDS: ASPIRIN CHEWABLE 81 MG TABLET. FT SCH (09:14)
[2018-12-16] MEDS: FUROSEMIDE 40 MG/4 ML VIAL. IVP SCH (09:14)
[2018-12-16] MEDS: FAMOTIDINE 20 MG/2 ML VIAL IVP SCH ×2 (09:14→20:35)
[2018-12-16] MEDS: DOCUSATE 100 MG/10 ML SOLUTION. FT SCH ×2 (09:15→21:41)
[2018-12-16] MEDS: SENNA LEAF EXTRACT 528 MG/15 ML ORAL SYRUP. FT SCH ×2 (09:15→21:41)
[2018-12-16] MEDS: POTASSIUM CHLORIDE 20 MEQ/15 ML ORAL LIQUID. PEG SCH (09:17)
--- NOTE | 2018-12-16 10:40 | PDOC ---
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 They placed the patient on BiPAP due to respiratory difficulty and hypoxia, and by the time the patient arrived in the emergency department, he was barely arousable. 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 severe morbid Obesity with a BMI of 39 Obesity hypoventilation syndrome Diabetes mellitus type 2 insulin requiring History off dyslipidemia on statin therapy History of hypothyroidism History of coronary artery disease status post PCI approximately a year ago with RCA involvement currently undergoing medical management History of carotid endarterectomy COPD secondary to smoking history with a greater than [id number] history of smoking quit approximately 10 years ago ECHO shows Left ventricle systolic function is mild to moderately impaired. The Ejection Fraction is 40-45%. There is global hypokinesis of the left ventricle. Septal motion suggestive of conduction defect. Cholelithiasis. Right adrenal adenoma or myelolipoma normocytic anemia Plan: Continue supportive measures in the ICU Management as per Dr. Montoya recommendations greatly appreciated Continue with diuresis Further recommendations based on the clinical course 40 MIN CC TIME Past Medical History Past Medical History: CVA, Diabetes-Type II, Hypertension, Other Additional Past Medical Histor: lower ext swelling, short term memory loss Past Surgical History: Other Additional Past Surgical Histo: carotid endarterectomy Smoking: Quit Greater Than 1 Year Additional Information: Former Smoker, 3ppd smoker x approx 40 years Alcohol Use: Rarely Drug Use: None History of Present Illness History of Present Illness provide supportive measures the ICU AORTIC VALVE The aortic valve is not well visualized but appears calcified and displays decreased opening per Doppler interrogation. Doppler and Color Flow revealed no significant aortic regurgitation. Calculated aortic valve area is 1.53 cm2 with maximum pressure gradient of 18 mmHg and mean pressure gradient of 11 mmHg. Doppler and color-flow analysis revealed mild aortic stenosis. MITRAL VALVE The mitral valve is calcified but opens well. There is no evidence of mitral valve prolapse. There is no mitral valve stenosis. Doppler and Color-flow revealed trace mitral regurgitation. TRICUSPID VALVE The tricuspid valve is normal in structure and function. Doppler and Color Flow revealed no tricuspid valve regurgitation noted. There is no tricuspid valve stenosis. PULMONIC VALVE The pulmonic valve is not well visualized. Doppler and Color Flow revealed mild pulmonic valvular regurgitation. There is no pulmonic valvular stenosis. GREAT VESSELS The aortic root is normal in size. The ascending aorta is not well seen. The IVC was not visualized. PERICARDIAL EFFUSION There is no evidence of significant pericardial effusion. Critical Notification Critical Value: No <Conclusion> Left ventricle systolic function is mild to moderately impaired. The Ejection Fraction is 40-45%. There is global hypokinesis of the left ventricle. Septal motion suggestive of conduction defect. Signed by : Gregg Plummer, Electronically Approved : 12/14/2018 11:07:04 37 min cc time Vitals Vitals Vital Signs Date Time Temp Pulse Resp B/P (MAP) Pulse Ox O2 Delivery O2 Flow Rate FiO2 12/16/18 10:00 76 17 136/55 (82) 95 Nasal Cannula 3.0 12/16/18 07:00 98.3 98.3 Physical Exam Physical Exam Gen.: Obese , no apparent distress irritable Head: Normal shape atraumatic Eyes: Pupils equal reactive to light and accommodation, normal conjunctivae and lids Ears: Normal shape Nose: Normal shape no trauma Mouth: No exudates of the back of throat no thrush no lesions Neck: Supple no JVD no carotid bruit or lymphadenopathy no thyromegaly Chest: Lungs clear to auscultation with good inspiratory effort lower lung field crackles, no rales or rhonchi Cardiovascular: S1-S2 regular rhythm no murmurs gallops or rubs Abdomen: Bowel sounds present soft nontender no hepatosplenomegaly appreciated sign Extremities: No clubbing no cyanosis no edema peripheral pulses palpated bilaterally Neurological: Alert awake oriented in person time place and situation, cranial nerves II through XII intact, no motor or sensory deficits appreciated Psych: Appropriate mood, cooperative General: Alert, Oriented X3, Cooperative, Other (intubated, sedated) Heart: Other (tele SB, distant heart tones) Lungs: Other (decrease bases) Abdomen: Soft, Other (obese) Extremities: No cyanosis, Normal pulses, Other (2+ bilateral LE edema ) Skin: No significant lesion Labs LABS Procedure Result GRAM STAIN WHITE BLOOD CELLS Final Many GRAM STAIN EPITHELIAL CELLS Final Many GRAM STAIN RESULT 1 Final Comment Many gram positive cocci. GRAM STAIN RESULT 2 Final Comment Many gram negative rods. GRAM STAIN RESULT 3 Final Comment Few gram positive rods. GRAM STAIN RESULT 4 Final Comment Few gram negative diplococci. GRAM STAIN EVALUATION Final Comment This specimen is of good quality and is acceptable for routine bacterial culture. Performed at: - [facility] [id number] [facility] [address], [place], [place] [id number] Apartment Property Manager: HILDA Yadav MD, Phone: [phone] Single view of the chest. 12/16/2018 9:00 AM Indication: RESPIRATORY FAILURE Comparison: Chest radiograph, yesterday Findings: Interval extubation and removal of enteric tube. Improved aeration of the left lung base is noted in the interim. Mild persistent atelectasis or effusion may be present. Cardiomegaly persists. No pneumothorax is identified. No acute osseous changes are seen. IMPRESSION: 1. Interval extubation and removal of enteric tube 2. Improved aeration of the left lung base in the interim with possible mild persistent atelectasis or minimal effusion Electronically signed by: Quintin Pringle MD (12/16/2018 8:33 AM) [facility] DICTATED and SIGNED BY: QUINTIN PRINGLE MD DATE: 12/16/18 0833 Laboratory Tests Test 12/15/18 11:52 12/15/18 14:21 12/15/18 17:20 12/15/18 21:12 Glucose (Fingerstick) 331 mg/dL (70-99) 247 mg/dL (70-99) 249 mg/dL (70-99) 207 mg/dL (70-99) Test 12/15/18 23:50 12/15/18 23:52 12/16/18 05:47 12/16/18 08:46 Potassium Level 3.8 mmol/L (3.5-5.1) Magnesium Level 2.1 mg/dL (1.8-2.4) Glucose (Fingerstick) 210 mg/dL (70-99) 103 mg/dL (70-99) 92 mg/dL (70-99) Assessment and Plan Assessmemt and Plan Problems Medical Problems: (1) CHF (congestive heart failure) Status: Acute (2) Respiratory failure Status: Acute Past Medical History Past Medical History: CVA, Diabetes-Type II, Hypertension, Other Additional Past Medical Histor: lower ext swelling, short term memory loss Past Surgical History: Other Additional Past Surgical Histo: carotid endarterectomy Smoking: Quit Greater Than 1 Year Additional Information: Former Smoker, 3ppd smoker x approx 40 years Alcohol Use: Rarely Drug Use: None Comment Review of Relevant I have reviewed the following items luis (where applicable) has been applied. Labs Laboratory Tests Test 12/14/18 12:30 12/14/18 16:39 12/14/18 20:51 12/14/18 23:52 Heparin Anti-Xa Act, Unfractionated 0.52 IU/mL (0.30-0.70) Glucose (Fingerstick) 201 mg/dL (70-99) 273 mg/dL (70-99) 326 mg/dL (70-99) Test 12/15/18 05:09 12/15/18 05:10 12/15/18 08:00 12/15/18 10:30 Glucose (Fingerstick) 325 mg/dL (70-99) White Blood Count 8.0 x10^3/uL (4.0-11.0) Red Blood Count 3.42 x10^6/uL (4.30-5.70) Hemoglobin 10.6 g/dL (13.0-17.5) Hematocrit 31.8 % (39.0-53.0) Mean Corpuscular Volume 93 fL (79-100) Mean Corpuscular Hemoglobin 31 pg (25-35) Mean Corpuscular Hemoglobin Concent 33 g/dL (31-37) Red Cell Distribution Width 15.2 % (11.5-14.5) Platelet Count 162 x10^3/uL (140-400) Sodium Level 140 mmol/L (136-145) Potassium Level 3.2 mmol/L (3.5-5.1) Chloride Level 100 mmol/L (98-107) Carbon Dioxide Level 27 mmol/L (21-32) Anion Gap 13 (6-14) Blood Urea Nitrogen 24 mg/dL (8-26) Creatinine 1.7 mg/dL (0.7-1.3) Estimated GFR (Cockcroft-Gault) 39.8 Glucose Level 354 mg/dL (70-99) Calcium Level 8.5 mg/dL (8.5-10.1) Procalcitonin 0.21 ng/mL (0.00-0.10) O2 Saturation 94 % (92-99) 95 % (92-99) Arterial Blood pH 7.40 (7.35-7.45) 7.43 (7.35-7.45) Arterial Blood pCO2 at Patient Temp 44 mmHg (35-46) 41 mmHg (35-46) Arterial Blood pO2 at Patient Temp 79 mmHg (65-108) 77 mmHg (65-108) Arterial Blood HCO3 27 mmol/L (21-28) 26 mmol/L (21-28) Arterial Blood Base Excess 2 mmol/L (-3-3) 2 mmol/L (-3-3) FiO2 40 40 Test 12/15/18 11:52 12/15/18 14:21 12/15/18 17:20 12/15/18 21:12 Glucose (Fingerstick) 331 mg/dL (70-99) 247 mg/dL (70-99) 249 mg/dL (70-99) 207 mg/dL (70-99) Test 12/15/18 23:50 12/15/18 23:52 12/16/18 05:47 12/16/18 08:46 Potassium Level 3.8 mmol/L (3.5-5.1) Magnesium Level 2.1 mg/dL (1.8-2.4) Glucose (Fingerstick) 210 mg/dL (70-99) 103 mg/dL (70-99) 92 mg/dL (70-99) Laboratory Tests Test 12/15/18 11:52 12/15/18 14:21 12/15/18 17:20 12/15/18 21:12 Glucose (Fingerstick) 331 mg/dL (70-99) 247 mg/dL (70-99) 249 mg/dL (70-99) 207 mg/dL (70-99) Test 12/15/18 23:50 12/15/18 23:52 12/16/18 05:47 12/16/18 08:46 Potassium Level 3.8 mmol/L (3.5-5.1) Magnesium Level 2.1 mg/dL (1.8-2.4) Glucose (Fingerstick) 210 mg/dL (70-99) 103 mg/dL (70-99) 92 mg/dL (70-99) Microbiology 12/13/18 Blood Culture - Preliminary, Resulted NO GROWTH AFTER 2 DAYS 12/14/18 - Final, Complete 12/14/18 - Final, Complete 12/14/18 - Final, Complete 12/14/18 - Final, Complete 12/14/18 - Final, Complete 12/14/18 - Final, Complete 12/14/18 Gram Stain Evaluation - Final, Complete 12/14/18 Sputum Culture - Final, Complete 12/14/18 Sputum Result 1 - Final, Complete Medications Current Medications Iodixanol (Visipaque 320) 100 ml STK-MED ONCE .ROUTE ; Start 12/13/18 at 12:53; Stop 12/13/18 at 12:54; Status DC Lidocaine HCl (Lidocaine 1% 20ml Vial) 20 ml STK-MED ONCE .ROUTE ; Start at 12:53; Stop 12/13/18 at 12:54; Status DC Heparin Sodium/ Sodium Chloride 1,000 ml @ As Directed STK-MED ONCE .ROUTE ; Start 12/13/18 at 12:53; Stop 12/13/18 at 12:54; Status DC Methylprednisolone Sodium Succinate (SOLU-Medrol 125MG VIAL) 125 mg STK-MED ONCE .ROUTE ; Start 12/13/18 at 12:57; Stop 12/13/18 at 12:58; Status DC Fentanyl Citrate (Fentanyl 2ml Vial) 100 mcg STK-MED ONCE .ROUTE ; Start at 12:57; Stop 12/13/18 at 12:58; Status DC Midazolam HCl (Versed) 2 mg STK-MED ONCE .ROUTE ; Start 12/13/18 at 12:57; Stop 12/13/18 at 12:58; Status DC Heparin Sodium (Porcine) (Heparin Sodium) 10,000 unit STK-MED ONCE .ROUTE ; Start 12/13/18 at 12:57; Stop 12/13/18 at 12:58; Status DC Verapamil HCl (Verapamil) 5 mg STK-MED ONCE .ROUTE ; Start 12/13/18 at 12:57; Stop 12/13/18 at 12:58; Status DC Famotidine (Pepcid Vial) 20 mg STK-MED ONCE .ROUTE ; Start 12/13/18 at 12:57; Stop 12/13/18 at 12:58; Status DC Diphenhydramine HCl (Benadryl) 50 mg STK-MED ONCE .ROUTE ; Start 12/13/18 at 12: 57; Stop 12/13/18 at 12:58; Status DC Nitroglycerin (Nitroglycerin) 200 mcg STK-MED ONCE .ROUTE ; Start 12/13/18 at 12 :57; Stop 12/13/18 at 12:58; Status DC Nitroglycerin/ Dextrose 250 ml @ As Directed STK-MED ONCE IV ; Start 12/13/18 at 13:04; Stop 12/13/18 at 13:05; Status DC Furosemide (Lasix) 100 mg STK-MED ONCE .ROUTE ; Start 12/13/18 at 13:07; Stop at 13:08; Status DC Nitroglycerin/ Dextrose 250 ml @ 0 mls/hr 1X ONCE IV Last administered on 12/13at 13:11; Start 12/13/18 at 13:15; Stop 12/13/18 at 13:16; Status DC Furosemide (Lasix) 80 mg 1X ONCE IVP Last administered on 12/13/18at 13:12; Start 12/13/18 at 13:15; Stop 12/13/18 at 13:16; Status DC Propofol 50 ml @ As Directed STK-MED ONCE IV ; Start 12/13/18 at 13:25; Stop at 13:26; Status DC Propofol 50 ml @ 1.857 mls/ hr 1X ONCE IV Last administered on 12/13/18at 13: 31; Start 12/13/18 at 13:30; Stop 12/13/18 at 21:10; Status DC Oxycodone HCl (Roxicodone) 5 mg PRN Q3HRS PRN PO MODERATE-SEVERE PAIN; Start at 14:15; Stop 12/14/18 at 07:57; Status DC Acetaminophen (Tylenol) 650 mg PRN Q6HRS PRN PO Headaches, Temp > 101.5'; Start 12/13/18 at 14:15; Stop 12/14/18 at 07:56; Status DC Lorazepam (Ativan) 0.5 mg PRN Q6HRS PRN IV ANXIETY / AGITATION; Start 12/13/18 at 14:15 Ondansetron HCl (Zofran) 4 mg PRN Q6HRS PRN IV NAUSEA/VOMITING; Start 12/13/18 at 14:15 Famotidine (Pepcid Vial) 20 mg BID IVP Last administered on 12/16/18 09:14; Start 12/13/18 at 21:00 Info (Icu Electrolyte Protocol) 1 ea DAILY MC Last administered on 12/15/18 09 :00; Start 12/14/18 at 09:00 Heparin Sodium (Porcine) (Heparin Sodium) 5,000 unit Q8HRS SQ ; Start 12/13/18 at 22:00; Stop 12/13/18 at 22:37; Status DC Sodium Chloride (Normal Saline Flush) 3 ml QSHIFT PRN IV AFTER MEDS AND BLOOD DRAWS; Start 12/13/18 at 14:15 Morphine Sulfate (Morphine Sulfate) 2 mg PRN Q1HR PRN IV PAIN MILD TO MOD; Start 12/13/18 at 14:15 Senna/Docusate Sodium (Senna Plus) 1 tab BID PO Last administered on 12/13/18 22:51; Start 12/13/18 at 21:00; Stop 12/14/18 at 08:00; Status DC Amlodipine Besylate (Norvasc) 10 mg DAILY PO Last administered on 12/14/18 08: 34; Start 12/14/18 at 09:00; Stop 12/14/18 at 10:00; Status DC Aspirin (Children'S Aspirin) 81 mg DAILY FT Last administered on 12/16/18 09: 14; Start 12/14/18 at 09:00 Clopidogrel Bisulfate (Plavix) 75 mg DAILY FT Last administered on 12/16/18 09 :13; Start 12/14/18 at 09:00 Furosemide (Lasix) 40 mg DAILY PO ; Start 12/14/18 at 09:00; Stop 12/14/18 at 09 :00; Status DC Insulin Glargine (Lantus) 70 units QHS SQ Last administered on 12/15/18at 21:00 ; Start 12/13/18 at 21:00 Lisinopril (Prinivil) 40 mg DAILY FT Last administered on 3/21/19at 09:13; Start 12/14/18 at 09:00 Metoprolol Tartrate (Lopressor) 25 mg BID PO ; Start 12/13/18 at 21:00; Stop at 21:00; Status DC Nitroglycerin (Nitrostat) 0.4 mg PRN Q5MIN PRN SL CHEST PAIN; Start 12/13/18 at 14:15; Stop 12/15/18 at 16:46; Status DC Potassium Chloride (Klor-Con) 20 meq DAILY PO ; Start 12/14/18 at 09:00; Stop at 09:00; Status DC Levothyroxine Sodium (Synthroid) 200 mcg DAILY06 PO ; Start 12/14/18 at 06:00; Stop 12/14/18 at 07:56; Status DC Atorvastatin Calcium (Lipitor) 10 mg QHS PO Last administered on 12/13/18at 22: 51; Start 12/13/18 at 21:00; Stop 12/14/18 at 10:03; Status DC Enoxaparin Sodium (Lovenox 40mg Syringe) 40 mg Q24H SQ ; Start 12/13/18 at 14:30 ; Stop 12/13/18 at 14:30; Status DC Famotidine (Pepcid Vial) 20 mg QHS IVP ; Start 12/13/18 at 21:00; Stop 12/13/18 at 21:00; Status DC Albuterol/ Ipratropium (Duoneb) 3 ml RTQID NEB Last administered on 12/16/18at 08:38; Start 12/13/18 at 16:00 Etomidate (Amidate) 20 mg STK-MED ONCE IV ; Start 12/13/18 at 15:01; Stop at 15:02; Status DC Succinylcholine Chloride (Anectine) 200 mg STK-MED ONCE .ROUTE ; Start 12/13/18 at 15:02; Stop 12/13/18 at 15:03; Status DC Propofol 100 ml @ 1.857 mls/ hr CONT PRN IV SEE I/O RECORD Last administered on 12/15/18at 05:36; Start 12/13/18 at 15:15 Furosemide (Lasix) 40 mg DAILY IVP Last administered on 12/16/18at 09:14; Start 12/14/18 at 09:00 Fentanyl Citrate (Fentanyl 2ml Vial) 50 mcg PRN Q2HR PRN IV PAIN SEVERE Last administered on 12/14/18 21:29; Start 12/13/18 at 19:15 Heparin Sodium/ Dextrose 500 ml @ 0 mls/hr CONT PRN IV SEE I/O RECORD Last administered on 12/14/18 13:10; Start 12/13/18 at 22:45; Stop 12/15/18 at 09:13 ; Status DC Heparin Sodium (Porcine) (Heparin Sodium) 3,300 unit PRN Q6HRS PRN IV FOR UFH LEVEL LESS THAN 0.2 Last administered on 12/13/18 22:50; Start 12/13/18 at 22: 45; Stop 12/15/18 at 09:13; Status DC Info (Anti-Coagulation Monitoring By Pharmacy) 1 each PRN DAILY PRN MC SEE COMMENTS Last administered on 12/14/18 09:56; Start 12/13/18 at 22:45; Stop at 09:13; Status DC Acetaminophen (Tylenol) 650 mg PRN Q6HRS PRN FT Headaches, Temp > 101.5'; Start 12/14/18 at 08:00 Levothyroxine Sodium (Synthroid) 200 mcg DAILY06 FT Last administered on 05:42; Start 12/14/18 at 07:56 Oxycodone HCl (Roxicodone) 5 mg PRN Q3HRS PRN FT MODERATE-SEVERE PAIN; Start at 07:57 Potassium Chloride (KCl Oral Soln) 20 meq DAILY PEG Last administered on 09:17; Start 12/14/18 at 09:00 Docusate Sodium (Colace Solution) 100 mg BID FT Last administered on 12/16/18 09:15; Start 12/14/18 at 09:00 Senna (Senna Oral Syrup) 528 mg BID FT Last administered on 12/16/18 09:15; Start 12/14/18 at 09:00 Amlodipine Besylate (Norvasc) 10 mg DAILY FT Last administered on 12/16/18 09: 13; Start 12/14/18 at 10:00 Atorvastatin Calcium (Lipitor) 10 mg QHS FT Last administered on 3/20/19at 21: 09; Start 12/14/18 at 21:00 Piperacillin Sod/ Tazobactam Sod (Zosyn Per Pharmacy) 1 each PRN DAILY PRN MC SEE COMMENTS; Start 12/14/18 at 11:30 Piperacillin Sod/ Tazobactam Sod 3.375 gm/Sodium Chloride 50 ml @ 100 mls/hr Q6HRS IV Last administered on 12/16/18at 05:42; Start 12/14/18 at 12:00 Iodixanol (Visipaque 320) 100 ml STK-MED ONCE .ROUTE ; Start 12/14/18 at 13:55; Stop 12/14/18 at 13:56; Status DC Heparin Sodium/ Sodium Chloride 1,000 ml @ As Directed STK-MED ONCE .ROUTE ; Start 12/14/18 at 13:56; Stop 12/14/18 at 13:57; Status DC Lidocaine HCl (Xylocaine-Mpf 1% 2ml Vial) 2 ml STK-MED ONCE .ROUTE ; Start 12/14 at 13:56; Stop 12/14/18 at 13:57; Status DC Methylprednisolone Sodium Succinate (SOLU-Medrol 125MG VIAL) 125 mg STK-MED ONCE .ROUTE ; Start 12/14/18 at 15:06; Stop 12/14/18 at 15:07; Status DC Diphenhydramine HCl (Benadryl) 50 mg STK-MED ONCE .ROUTE ; Start 12/14/18 at 15: 06; Stop 12/14/18 at 15:07; Status DC Heparin Sodium (Porcine) (Heparin Sodium) 10,000 unit STK-MED ONCE .ROUTE ; Start 12/14/18 at 15:13; Stop 12/14/18 at 15:14; Status DC Verapamil HCl (Verapamil) 5 mg STK-MED ONCE .ROUTE ; Start 12/14/18 at 15:13; Stop 12/14/18 at 15:14; Status DC Nitroglycerin (Nitroglycerin) 200 mcg STK-MED ONCE .ROUTE ; Start 12/14/18 at 15 :14; Stop 12/14/18 at 15:15; Status DC Nitroglycerin (Nitroglycerin) 200 mcg 1X ONCE IART Last administered on at 15:35; Start 12/14/18 at 15:30; Stop 12/14/18 at 15:31; Status DC Verapamil HCl (Verapamil) 2.5 mg 1X ONCE IART Last administered on 12/14/18 15:35; Start 12/14/18 at 15:30; Stop 12/14/18 at 15:31; Status DC Heparin Sodium (Porcine) (Heparin Sodium) 2,500 unit 1X ONCE IART Last administered on 12/14/18 15:34; Start 12/14/18 at 15:30; Stop 12/14/18 at 15:31 ; Status DC Heparin Sodium/ Sodium Chloride (HEPARIN for ARTERIAL LINE FLUSH) 1,000 unit 1X ONCE IART Last administered on 12/14/18 15:33; Start 12/14/18 at 15:30; Stop 12/14/18 at 15:31; Status DC Heparin Sodium/ Sodium Chloride (HEPARIN for ARTERIAL LINE FLUSH) 1,000 unit 1X ONCE IART Last administered on 12/14/18 15:34; Start 12/14/18 at 15:30; Stop 12/14/18 at 15:31; Status DC Iodixanol (Visipaque 320) 100 ml 1X ONCE IART Last administered on 12/14/18 15:33; Start 12/14/18 at 15:30; Stop 12/14/18 at 15:31; Status DC Lidocaine HCl (Xylocaine-Mpf 1% 2ml Vial) 2 ml 1X ONCE INJ Last administered on 12/14/18 15:34; Start 12/14/18 at 15:30; Stop 12/14/18 at 15:31; Status DC Methylprednisolone Sodium Succinate (SOLU-Medrol 125MG VIAL) 125 mg 1X ONCE IV Last administered on 12/14/18 15:35; Start 12/14/18 at 15:30; Stop 12/14/18 at 15:31; Status DC Diphenhydramine HCl (Benadryl) 50 mg 1X ONCE IVP Last administered on 15:35; Start 12/14/18 at 15:30; Stop 12/14/18 at 15:31; Status DC Info (CONTRAST GIVEN -- Rx MONITORING) 1 each PRN DAILY PRN MC SEE COMMENTS; Start 12/14/18 at 15:30; Stop 12/16/18 at 15:29 Epinephrine HCl (EPINEPHrine SYRINGE) 1 mg STK-MED ONCE .ROUTE ; Start 12/13/18 at 12:00; Stop 12/14/18 at 15:50; Status DC Insulin Glargine (Lantus) 12 units BID SQ ; Start 12/14/18 at 21:00; Status UNV Insulin Human Lispro (HumaLOG) 0-7 UNITS TIDWMEALS SQ Last administered on 12/14at 17:04; Start 12/14/18 at 17:00; Stop 12/14/18 at 21:44; Status DC Dextrose (Dextrose 50%-Water Syringe) 12.5 gm PRN Q15MIN PRN IV SEE COMMENTS; Start 12/14/18 at 16:45; Stop 12/16/18 at 10:04; Status DC Sodium Chloride (Normal Saline Flush) 3 ml QSHIFT PRN IV AFTER MEDS AND BLOOD DRAWS; Start 12/14/18 at 16:45 Nitroglycerin (Nitrostat) 0.4 mg PRN Q5MIN PRN SL CHEST PAIN; Start 12/14/18 at 16:45 Multi-Ingred Cream/Lotion/Oil/ Oint (Artificial Tears Eye Ointment) 1 shae PRN Q1HR PRN OU DRY EYE Last administered on 12/15/18at 09:41; Start 12/14/18 at 18: 45 Insulin Human Lispro (HumaLOG) 0-7 UNITS Q6HRS SQ Last administered on at 00:06; Start 12/15/18 at 00:00; Stop 12/16/18 at 07:38; Status DC Potassium Chloride (KCl Oral Soln) 40 meq 1X ONCE PO Last administered on 12/15at 07:44; Start 12/15/18 at 07:00; Stop 12/15/18 at 07:01; Status DC Enoxaparin Sodium (Lovenox 40mg Syringe) 40 mg Q24H SQ Last administered on at 17:04; Start 12/15/18 at 13:00 Carvedilol (Coreg) 6.25 mg BIDWMEALS PO ; Start 12/15/18 at 17:00; Stop at 17:00; Status DC Carvedilol (Coreg) 3.125 mg BIDWMEALS PO Last administered on 12/16/18at 09:12; Start 12/15/18 at 17:00 Lactobacillus Rhamnosus (Culturelle) 1 cap BID PO Last administered on at 09:12; Start 12/16/18 at 09:00 Insulin Human Lispro (HumaLOG) 0-7 UNITS TIDBFRMEAL SQ ; Start 12/16/18 at 11:30 Dextrose (Dextrose 50%-Water Syringe) 12.5 gm PRN Q15MIN PRN IV SEE COMMENTS; Start 12/16/18 at 07:45 Active Scripts Active Reported Janumet 50-1,000 Mg Tablet (Sitagliptin Phos/Metformin Hcl) 1 Each Tablet 2 Tab PO QEVNG Clopidogrel (Clopidogrel Bisulfate) 75 Mg Tablet 1 Tab PO DAILY Levothyroxine Sodium 200 Mcg Tablet 1 Tab PO DAILY Lisinopril 40 Mg Tablet 40 Mg PO DAILY Klor-Con M20 (Potassium Chloride) 20 Meq Tab.er.prt 20 Meq PO DAILY Metformin Hcl Er (Metformin Hcl) 1,000 Mg Tab.er.24 1 Tab PO BID NITROGLYCERIN SubLingual (Nitroglycerin) 0.4 Mg Tab.subl 0.4 Mg SL PRN Q5MIN PRN Glimepiride 4 Mg Tablet 1 Tab PO DAILY Lantus Solostar (Insulin Glargine,Hum.rec.anlog) 100 Unit/1 Ml Insuln.pen 70 Unit SQ QHS Pravastatin Sodium 40 Mg Tablet 1 Tab PO QHS Amlodipine Besylate 10 Mg Tablet 10 Mg PO DAILY Aspir 81 (Aspirin) 81 Mg Tablet.dr 1 Tab PO DAILY Metoprolol Tartrate 25 Mg Tablet 1 Tab PO BID Furosemide 40 Mg Tablet 1 Tab PO DAILY Vitals/I & O Vital Sign - Last 24 Hours 12/15/18 12/15/18 12/15/18 12/15/18 11:00 11:58 12:00 12:28 Pulse 92 B/P (MAP) 168/64 (98) Pulse Ox 96 96 96 O2 Delivery Nasal Cannula Nasal Cannula Nasal Cannula O2 Flow Rate 4.0 4.0 4.0 12/15/18 12/15/18 12/15/18 12/15/18 13:00 14:00 15:00 15:11 Temp 98.1 98.1 Pulse 106 102 102 B/P (MAP) 146/53 (84) 169/63 (98) 140/66 (90) Pulse Ox 96 96 95 93 O2 Delivery Nasal Cannula Nasal Cannula Nasal Cannula Nasal Cannula O2 Flow Rate 4.0 4.0 4.0 3.0 12/15/18 12/15/18 12/15/18 12/15/18 16:00 16:00 17:00 17:04 Pulse 98 101 100 B/P (MAP) 156/78 (104) 140/66 (90) 140/66 Pulse Ox 96 95 O2 Delivery Nasal Cannula Nasal Cannula Nasal Cannula O2 Flow Rate 4.0 4.0 4.0 12/15/18 12/15/18 12/15/18 12/15/18 18:28 19:00 19:45 20:00 Temp 98.2 98.2 Pulse 99 99 95 Resp 16 20 B/P (MAP) 144/60 (88) 161/76 (104) 152/58 (89) Pulse Ox 93 97 96 95 O2 Delivery Nasal Cannula Nasal Cannula Nasal Cannula Nasal Cannula O2 Flow Rate 4.0 4.0 3.0 4.0 12/15/18 12/15/18 12/15/18 12/15/18 20:00 21:00 22:00 23:00 Pulse 99 95 113 Resp 16 18 18 B/P (MAP) 120/52 (74) 119/69 (86) 100/46 (64) Pulse Ox 97 97 96 O2 Delivery Nasal Cannula Nasal Cannula Nasal Cannula Nasal Cannula O2 Flow Rate 4.0 4.0 4.0 4.0 12/15/18 12/15/18 12/16/18 12/16/18 23:59 23:59 01:00 02:00 Temp 97.2 97.2 Pulse 110 111 110 Resp 22 B/P (MAP) 110/43 (65) 97/44 (61) 126/42 (70) Pulse Ox 97 96 96 O2 Delivery Nasal Cannula Nasal Cannula Nasal Cannula Nasal Cannula O2 Flow Rate 4.0 4.0 4.0 4.0 12/16/18 12/16/18 12/16/18 12/16/18 03:00 04:00 04:00 05:05 Temp 97.2 97.2 Pulse 111 84 94 Resp 22 16 16 B/P (MAP) 104/47 (66) 140/75 (96) 108/49 (68) Pulse Ox 99 98 98 O2 Delivery Nasal Cannula Nasal Cannula Nasal Cannula Nasal Cannula O2 Flow Rate 4.0 4.0 4.0 4.0 12/16/18 12/16/18 12/16/18 12/16/18 06:03 07:00 08:00 08:38 Temp 98.3 98.3 Pulse 92 75 78 Resp 16 19 22 B/P (MAP) 140/81 (100) 162/71 (101) 152/56 (88) Pulse Ox 92 92 96 93 O2 Delivery Nasal Cannula Nasal Cannula Nasal Cannula Nasal Cannula O2 Flow Rate 4.0 4.0 4.0 3.0 12/16/18 12/16/18 12/16/18 12/16/18 09:00 09:12 09:13 09:13 Pulse 88 88 88 88 Resp 20 B/P (MAP) 179/70 (106) 179/70 179/70 179/70 Pulse Ox 91 O2 Delivery Nasal Cannula O2 Flow Rate 3.0 12/16/18 10:00 Pulse 76 Resp 17 B/P (MAP) 136/55 (82) Pulse Ox 95 O2 Delivery Nasal Cannula O2 Flow Rate 3.0 Intake and Output 12/15/18 12/15/18 12/16/18 14:59 22:59 06:59 Intake Total 251 ml 800 ml 50 ml Output Total 3460 ml 1025 ml 1076 ml Balance -3209 ml -225 ml -1026 ml MEHRAN LEWIS MD Dec 16, 2018 10:40
--- NOTE | 2018-12-16 10:55 | NUR ---
SS following up with discharge planning. PT/OT recommended assisted unit. SS met with pt and discussed discharge planning and assisted unit. Pt requested referral be sent to [facility]. SS phoned and faxed referral to [facility], ; fax [phone]. SS will await acceptance decision and will proceed accordingly.
--- NOTE | 2018-12-16 11:56 | PDOC ---
PULMONARY PROGRESS NOTES Subjective extubated, on canula Vitals Vital Signs Date Time Temp Pulse Resp B/P (MAP) Pulse Ox O2 Delivery O2 Flow Rate FiO2 12/16/18 11:49 Nasal Cannula 4.0 12/16/18 11:35 95 12/16/18 11:00 97.9 77 22 128/72 (90) 97.9 General: Alert, No acute distress Lungs: Other (decrease bases) Cardiovascular: S1, S2 Abdomen: Soft, Other (obese) Extremities: Other (2+edema) Skin: Warm Labs Laboratory Tests Test 12/14/18 12:30 12/14/18 16:39 12/14/18 20:51 12/14/18 23:52 Heparin Anti-Xa Act, Unfractionated 0.52 IU/mL (0.30-0.70) Glucose (Fingerstick) 201 mg/dL (70-99) 273 mg/dL (70-99) 326 mg/dL (70-99) Test 12/15/18 05:09 12/15/18 05:10 12/15/18 08:00 12/15/18 10:30 Glucose (Fingerstick) 325 mg/dL (70-99) White Blood Count 8.0 x10^3/uL (4.0-11.0) Red Blood Count 3.42 x10^6/uL (4.30-5.70) Hemoglobin 10.6 g/dL (13.0-17.5) Hematocrit 31.8 % (39.0-53.0) Mean Corpuscular Volume 93 fL (79-100) Mean Corpuscular Hemoglobin 31 pg (25-35) Mean Corpuscular Hemoglobin Concent 33 g/dL (31-37) Red Cell Distribution Width 15.2 % (11.5-14.5) Platelet Count 162 x10^3/uL (140-400) Sodium Level 140 mmol/L (136-145) Potassium Level 3.2 mmol/L (3.5-5.1) Chloride Level 100 mmol/L (98-107) Carbon Dioxide Level 27 mmol/L (21-32) Anion Gap 13 (6-14) Blood Urea Nitrogen 24 mg/dL (8-26) Creatinine 1.7 mg/dL (0.7-1.3) Estimated GFR (Cockcroft-Gault) 39.8 Glucose Level 354 mg/dL (70-99) Calcium Level 8.5 mg/dL (8.5-10.1) Procalcitonin 0.21 ng/mL (0.00-0.10) O2 Saturation 94 % (92-99) 95 % (92-99) Arterial Blood pH 7.40 (7.35-7.45) 7.43 (7.35-7.45) Arterial Blood pCO2 at Patient Temp 44 mmHg (35-46) 41 mmHg (35-46) Arterial Blood pO2 at Patient Temp 79 mmHg (65-108) 77 mmHg (65-108) Arterial Blood HCO3 27 mmol/L (21-28) 26 mmol/L (21-28) Arterial Blood Base Excess 2 mmol/L (-3-3) 2 mmol/L (-3-3) FiO2 40 40 Test 12/15/18 11:52 12/15/18 14:21 12/15/18 17:20 12/15/18 21:12 Glucose (Fingerstick) 331 mg/dL (70-99) 247 mg/dL (70-99) 249 mg/dL (70-99) 207 mg/dL (70-99) Test 12/15/18 23:50 12/15/18 23:52 12/16/18 05:47 12/16/18 08:46 Potassium Level 3.8 mmol/L (3.5-5.1) Magnesium Level 2.1 mg/dL (1.8-2.4) Glucose (Fingerstick) 210 mg/dL (70-99) 103 mg/dL (70-99) 92 mg/dL (70-99) Laboratory Tests Test 12/15/18 14:21 12/15/18 17:20 12/15/18 21:12 12/15/18 23:50 Glucose (Fingerstick) 247 mg/dL (70-99) 249 mg/dL (70-99) 207 mg/dL (70-99) Potassium Level 3.8 mmol/L (3.5-5.1) Magnesium Level 2.1 mg/dL (1.8-2.4) Test 12/15/18 23:52 12/16/18 05:47 12/16/18 08:46 Glucose (Fingerstick) 210 mg/dL (70-99) 103 mg/dL (70-99) 92 mg/dL (70-99) Medications Active Scripts Medications Dose Route/Sig Max Daily Dose Days Date Category Janumet 50-1,000 Mg Tablet (Sitagliptin Phos/Metformin Hcl) 1 Each Tablet 2 Tab PO QEVNG 12/13/18 Reported Clopidogrel (Clopidogrel Bisulfate) 75 Mg Tablet 1 Tab PO DAILY 12/06/17 Reported Levothyroxine Sodium 200 Mcg Tablet 1 Tab PO DAILY 12/06/17 Reported Lisinopril 40 Mg Tablet 40 Mg PO DAILY 12/06/17 Reported Klor-Con M20 (Potassium Chloride) 20 Meq Tab.er.prt 20 Meq PO DAILY 12/06/17 Reported Metformin Hcl Er (Metformin Hcl) 1,000 Mg Tab.er.24 1 Tab PO BID 07/20/16 Reported NITROGLYCERIN SubLingual (Nitroglycerin) 0.4 Mg Tab.subl 0.4 Mg SL PRN Q5MIN PRN 07/20/16 Reported Glimepiride 4 Mg Tablet 1 Tab PO DAILY 07/20/16 Reported Lantus Solostar (Insulin Glargine,Hum.rec.anlog) 100 Unit/1 Ml Insuln.pen 70 Unit SQ QHS 07/20/15 Reported Pravastatin Sodium 40 Mg Tablet 1 Tab PO QHS 07/20/15 Reported Amlodipine Besylate 10 Mg Tablet 10 Mg PO DAILY 07/20/15 Reported Aspir 81 (Aspirin) 81 Mg Tablet.dr 1 Tab PO DAILY 07/20/15 Reported Metoprolol Tartrate 25 Mg Tablet 1 Tab PO BID 07/20/15 Reported Furosemide 40 Mg Tablet 1 Tab PO DAILY 07/20/15 Reported Comments CXR 12/16 IMPROVING chf/ L BASE ATELECTASIS Impression . 1. Acute hypoxic and hypercapnic respiratory failure secondary to acute on chronic systolic heart failure. EXTUBATED 12/15. ON CANULA 2. The patient with known cardiomyopathy with an EF of 40% and a recent cardiac catheterization suggesting evidence of high filling pressures with increased left ventricular end diastolic pressure of 21. Now comes in with worsening congestive heart failure. IMPROVED. 3. Morbid obesity and suspected obesity hypoventilation syndrome. 4. Suspected underlying chronic obstructive pulmonary disease. 5. Renal insufficiency. 6. Encephalopathy, toxic and metabolic. 7. Abnormal chest x-ray consistent with congestive heart failure./ LLL atelectasis/ low grade fever/? pneumonia, improving Plan . 1. canula 2. Diuresis. 3. repeat cath findings reviewed 4. Bronchodilators. 5. DVT prophylaxis. 6. Stress ulcer prophylaxis. 7. Follow up chest x-rays.as needed 8. Follow renal function. 9. empiric abx d/w RN/ family CATIE URIBE MD Dec 16, 2018 11:56
--- NOTE | 2018-12-16 12:58 | PDOC ---
SIMON PATEL [employer]GER [employer] 12/16/18 1258: CARDIO Progress Notes Date and Time Date of Service 12/16/18 Time of Evaluation 1240 Subjective Subjective: No Chest Pain, No shortness of breath, No Palpitations Vitals Vitals Vital Signs Date Time Temp Pulse Resp B/P (MAP) Pulse Ox O2 Delivery O2 Flow Rate FiO2 12/16/18 11:49 Nasal Cannula 4.0 12/16/18 11:35 95 12/16/18 11:00 97.9 77 22 128/72 (90) 97.9 Weight Weight [ ] Input and Output Intake and Output Intake and Output 12/16/18 06:59 Intake Total 1101 ml Output Total 5561 ml Balance -4460 ml Intake Oral 700 ml IV Total 226 ml Tube Feeding 175 ml Output Urine Total 5560 ml Stool Total 1 ml Laboratory Labs Laboratory Tests Test 12/15/18 14:21 12/15/18 17:20 12/15/18 21:12 12/15/18 23:50 Glucose (Fingerstick) 247 mg/dL (70-99) 249 mg/dL (70-99) 207 mg/dL (70-99) Potassium Level 3.8 mmol/L (3.5-5.1) Magnesium Level 2.1 mg/dL (1.8-2.4) Test 12/15/18 23:52 12/16/18 05:47 12/16/18 08:46 12/16/18 12:45 Glucose (Fingerstick) 210 mg/dL (70-99) 103 mg/dL (70-99) 92 mg/dL (70-99) 166 mg/dL (70-99) Microbiology Micro Microbiology 12/13/18 Blood Culture - Preliminary, Resulted NO GROWTH AFTER 2 DAYS 12/14/18 - Final, Complete 12/14/18 - Final, Complete 12/14/18 - Final, Complete 12/14/18 - Final, Complete 12/14/18 - Final, Complete 12/14/18 - Final, Complete 12/14/18 Gram Stain Evaluation - Final, Complete 12/14/18 Sputum Culture - Final, Complete 12/14/18 Sputum Result 1 - Final, Complete Physical Exam HEENT: Neck Supple W Full Motion Chest: Symmetric LUNGS: Other (diminished bases) Heart: RRR (SR with PVCs), no murmurs, other (S4) Abdomen: Soft N/T Extremities: No Calf Tenderness, Other (1+ bilateral LE pitting edema) Neurology: alert, oriented, follow commands Assessment Assessment 1. Acute on chronic respiratory failure with systolic CHF. Extubated 2. Acute on chronic systolic CHF: better compensated 3. ICM; EF 40-45%. 4. CAD: C unchanged findings by comparison. LCx stent patent 5. Hypertension; slightly labile 6. Hyperlipidemia; statin 7. PAFIB: SR with PVCs 8. Diabetes, II 9. WILLA Recommendations BMP in am Continue diuresis Secondary prevention Plan for outpatient event monitor. Lung optimization as per pulmonary HUMZA LINDQUIST MD 12/16/18 1627: CARDIO Progress Notes Plan Plan Pt. seen and examined. 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 Getting better daily. Up walking around. No acute issues. Supportive care. SIMON PATEL APRN Dec 16, 2018 12:58 HUMZA LINDQUIST MD Dec 16, 2018 16:27
--- NOTE | 2018-12-16 15:04 | NUR ---
Manually administered noon medications. WOW did not save when scanned the first time.
[2018-12-16] MEDS: ENOXAPARIN 40 MG/0.4 ML SYRINGE. SQ SCH (16:47)
[2018-12-16] MEDS: ATORVASTATIN CALCIUM 10 MG TABLET. FT SCH (20:35)
[2018-12-16] MEDS: INSULIN GLARGINE 300 UNITS/3 ML INSULN.PEN. SQ SCH (21:46)
[2018-12-17 00:08] LABS: HEMOGLOBIN A1C 9.2 % (4.8-5.6)
--- NOTE | 2018-12-17 00:10 | NUR ---
PT ANGRY, SAID HE WAS LEFT SITTING ON THE SIDE OF THE BED FOR TWO HOURS WHEN HE GOT HERE AND HIS SISTER WILL HAVE MY JOB THE WAY I TREATED HIM. TRIED TO EXPALIN TO PT THAT HE WAS ALREADY ON THE UNIT WHEN I ARRIVED. I AM THE STUNNER NURSE. PT CONFUSED AND GETTING EXTREMLEY ANGRY. ATTEMPTED TO REORIENT PT. BUT WAS ADIMENT ON HIS THOUGHTS. LATER PT TALKED TO HIS SISTER KAROL HE SAID WHO USE TO WORK HERE AND HAS THE CAPABILITY OF GETTING EVERYONE FIRED. BUT HE SAID HIS SISTER "CHEWED HIM OUT" AND REORIENTED HIM. HE SAID HE WAS SORRY THAT HE WAS JUST SCARED THAT A LOT HAS HPPENED TO HIM IN THE LAST FEW DAYS. SAT AND OFFEERED SUPPORT. PT THOUGHT A PILL WAS GIVEN TO HIM TO MAKE HIM CONFUSED. ASSURED HIM THAT NOTHING WAS GIVEN TO HIM EXCEPT AT 9PM. GOT PT UP TO RECLINER. STAYED THERE FOR THREE HOURS. THEN BACK TO HIS BED. EXCOURAGED PT TO TURN TO HIS SIDE. HIS BUTTUCKS IS RED. BLANCHABLE. AND RED BACK, RASH LIKE. SO HE LET US START TURNING HIM FROM SIDE TO SIDE. HE DIDNT TOLERATE IT FOR LONG. LCRN
[2018-12-17] MEDS: PIPERACILLIN/TAZOBACTAM 3.375 GM in IV NORMAL SALINE 50ML 50 ML IV SCH ×2 (00:52→06:10)
--- NOTE | 2018-12-17 01:20 | NUR ---
PLACE CALL TO DR GE. BP IS 199/102. CALL RETURNED AND NANDA HYDRALAZINE WAS ORDERED. AND GIVEN. LCRN
[2018-12-17] MEDS ORDERED: hydrALAZINE 20 MG/ML VIAL. IVP PRN (01:45)
[2018-12-17 03:55] VITALS: BP 170/82
[2018-12-17 04:03] LABS: BASO % 1 % (0-3); EOS # 0.3 x10^3/uL (0.0-0.7); EOS % 3 % (0-3); HEMATOCRIT 34.5 % (39.0-53.0); HEMOGLOBIN 11.2 g/dL (13.0-17.5); LYMPH # 1.8 x10^3/uL (1.0-4.8); LYMPH % 18 % (24-48); MEAN CORPUSCULAR HEMOGLOBIN 30 pg (25-35); MEAN CORPUSCULAR HGB CONC 32 g/dL (31-37); MEAN CORPUSCULAR VOLUME 93 fL (79-100); MONO # 1.1 x10^3/uL (0.0-1.1); MONO % 11 % (0-9); NEUT # 6.7 x10^3uL (1.8-7.7); NEUT % 68 % (31-73); PLATELET COUNT 202 x10^3/uL (140-400); RED BLOOD COUNT 3.72 x10^6/uL (4.30-5.70); RED CELL DISTRIBUTION WIDTH 15.4 % (11.5-14.5); WHITE BLOOD COUNT 9.8 x10^3/uL (4.0-11.0)
[2018-12-17 04:27] LABS: ALBUMIN 2.9 g/dL (3.4-5.0); ALBUMIN/GLOBULIN RATIO 0.7 (1.0-1.7); CREATININE 1.7 mg/dL (0.7-1.3); GFR 39.8; POTASSIUM 3.5 mmol/L (3.5-5.1); TOTAL BILIRUBIN 0.5 mg/dL (0.2-1.0); TOTAL PROTEIN 7.3 g/dL (6.4-8.2)
[2018-12-17] MEDS: LEVOTHYROXINE 100 MCG TABLET FT SCH (06:13)
[2018-12-17 06:56] VITALS: BP 139/72
[2018-12-17] MEDS: INSULIN LISPRO 300 UNITS/3 ML INSULN.PEN. SQ SCH ×2 (07:30→12:46)
[2018-12-17] MEDS: IPRATRPIUM/ALBUTEROL 0.5/2.5MG 3 ML NEBU. NEB SCH ×2 (07:39→11:54)
[2018-12-17] MEDS: ELECTROLYTE (ICU) PROTOCOL. MC SCH (09:00)
[2018-12-17] MEDS: DOCUSATE 100 MG/10 ML SOLUTION. FT SCH (09:00)
[2018-12-17] MEDS: SENNA LEAF EXTRACT 528 MG/15 ML ORAL SYRUP. FT SCH (09:00)
--- NOTE | 2018-12-17 09:00 | RAD ---
Examination: Ultrasound kidneys HISTORY: History of renal failure COMPARISON: None available FINDINGS: Right kidney measures 11.5 x 5.5 x 5.7 cm The left kidney measures 11.8 x 5.4 x 5.8 cm No evidence of hydronephrosis The urinary bladder is empty due to Dukes catheter IMPRESSION: Unremarkable exam. Electronically signed by: Max Bishop MD (12/17/2018 8:57 AM) [id number]
--- NOTE | 2018-12-17 09:53 | PDOC ---
PROGRESS NOTES Chief Complaint Chief Complaint [employer] the patient was found down in the shower by someone in his home, although the reliability of this information is unclear at this time. They placed the patient on BiPAP due to respiratory difficulty and hypoxia, and by the time the patient arrived in the emergency department, he was barely arousable. 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 severe morbid Obesity with a BMI of 39 Obesity hypoventilation syndrome Diabetes mellitus type 2 insulin requiring History off dyslipidemia on statin therapy History of hypothyroidism History of coronary artery disease status post PCI approximately a year ago with RCA involvement currently undergoing medical management History of carotid endarterectomy COPD secondary to smoking history with a greater than [id number] history of smoking quit approximately 10 years ago ECHO shows Left ventricle systolic function is mild to moderately impaired. The Ejection Fraction is 40-45%. There is global hypokinesis of the left ventricle. Septal motion suggestive of conduction defect. Cholelithiasis. Right adrenal adenoma or myelolipoma normocytic anemia Plan: Continue supportive measures Management as per Dr. Montoya recommendations greatly appreciated Continue with diuresis Further recommendations based on the clinical course d/c planning 32 min Past Medical History Past Medical History: CVA, Diabetes-Type II, Hypertension, Other Additional Past Medical Histor: lower ext swelling, short term memory loss Past Surgical History: Other Additional Past Surgical Histo: carotid endarterectomy Smoking: Quit Greater Than 1 Year Additional Information: Former Smoker, 3ppd smoker x approx 40 years Alcohol Use: Rarely Drug Use: None History of Present Illness History of Present Illness provide supportive measures the ICU AORTIC VALVE The aortic valve is not well visualized but appears calcified and displays decreased opening per Doppler interrogation. Doppler and Color Flow revealed no significant aortic regurgitation. Calculated aortic valve area is 1.53 cm2 with maximum pressure gradient of 18 mmHg and mean pressure gradient of 11 mmHg. Doppler and color-flow analysis revealed mild aortic stenosis. MITRAL VALVE The mitral valve is calcified but opens well. There is no evidence of mitral valve prolapse. There is no mitral valve stenosis. Doppler and Color-flow revealed trace mitral regurgitation. TRICUSPID VALVE The tricuspid valve is normal in structure and function. Doppler and Color Flow revealed no tricuspid valve regurgitation noted. There is no tricuspid valve stenosis. PULMONIC VALVE The pulmonic valve is not well visualized. Doppler and Color Flow revealed mild pulmonic valvular regurgitation. There is no pulmonic valvular stenosis. GREAT VESSELS The aortic root is normal in size. The ascending aorta is not well seen. The IVC was not visualized. PERICARDIAL EFFUSION There is no evidence of significant pericardial effusion. Critical Notification Critical Value: No <Conclusion> Left ventricle systolic function is mild to moderately impaired. The Ejection Fraction is 40-45%. There is global hypokinesis of the left ventricle. Septal motion suggestive of conduction defect. Signed by : Gregg Plummer, Electronically Approved : 12/14/2018 11:07:04 37 min cc time Vitals Vitals Vital Signs Date Time Temp Pulse Resp B/P (MAP) Pulse Ox O2 Delivery O2 Flow Rate FiO2 12/17/18 08:15 Nasal Cannula 3.0 12/17/18 06:56 98.6 76 24 139/72 (94) 95 98.6 Physical Exam Physical Exam Gen.: Obese , no apparent distress irritable Head: Normal shape atraumatic Eyes: Pupils equal reactive to light and accommodation, normal conjunctivae and lids Ears: Normal shape Nose: Normal shape no trauma Mouth: No exudates of the back of throat no thrush no lesions Neck: Supple no JVD no carotid bruit or lymphadenopathy no thyromegaly Chest: Lungs clear to auscultation with good inspiratory effort lower lung field crackles, no rales or rhonchi Cardiovascular: S1-S2 regular rhythm no murmurs gallops or rubs Abdomen: Bowel sounds present soft nontender no hepatosplenomegaly appreciated sign Extremities: No clubbing no cyanosis no edema peripheral pulses palpated bilaterally Neurological: Alert awake oriented in person time place and situation, cranial nerves II through XII intact, no motor or sensory deficits appreciated Psych: Appropriate mood, cooperative General: Alert, Oriented X3, Cooperative, Other (intubated, sedated) Heart: Regular rate, Other (tele SB, distant heart tones) Lungs: Clear, Other (decrease bases) Abdomen: Soft, No tenderness, Other (obese) Extremities: No cyanosis, Normal pulses, Other (2+ bilateral LE edema ) Skin: No significant lesion Labs LABS Laboratory Tests Test 12/16/18 12:45 12/16/18 14:00 12/16/18 16:57 12/16/18 21:12 Glucose (Fingerstick) 166 mg/dL (70-99) 201 mg/dL (70-99) 193 mg/dL (70-99) Hemoglobin A1c 9.2 % (4.8-5.6) Iron Level 38 ug/dL (65-175) Total Iron Binding Capacity 282 ug/dL (250-450) Iron Saturation 13 % (15-34) Test 12/17/18 01:34 12/17/18 03:30 12/17/18 07:33 Glucose (Fingerstick) 146 mg/dL (70-99) 110 mg/dL (70-99) White Blood Count 9.8 x10^3/uL (4.0-11.0) Red Blood Count 3.72 x10^6/uL (4.30-5.70) Hemoglobin 11.2 g/dL (13.0-17.5) Hematocrit 34.5 % (39.0-53.0) Mean Corpuscular Volume 93 fL (79-100) Mean Corpuscular Hemoglobin 30 pg (25-35) Mean Corpuscular Hemoglobin Concent 32 g/dL (31-37) Red Cell Distribution Width 15.4 % (11.5-14.5) Platelet Count 202 x10^3/uL (140-400) Neutrophils (%) (Auto) 68 % (31-73) Lymphocytes (%) (Auto) 18 % (24-48) Monocytes (%) (Auto) 11 % (0-9) Eosinophils (%) (Auto) 3 % (0-3) Basophils (%) (Auto) 1 % (0-3) Neutrophils # (Auto) 6.7 x10^3uL (1.8-7.7) Lymphocytes # (Auto) 1.8 x10^3/uL (1.0-4.8) Monocytes # (Auto) 1.1 x10^3/uL (0.0-1.1) Eosinophils # (Auto) 0.3 x10^3/uL (0.0-0.7) Basophils # (Auto) 0.0 x10^3/uL (0.0-0.2) Sodium Level 143 mmol/L (136-145) Potassium Level 3.5 mmol/L (3.5-5.1) Chloride Level 104 mmol/L (98-107) Carbon Dioxide Level 30 mmol/L (21-32) Anion Gap 9 (6-14) Blood Urea Nitrogen 27 mg/dL (8-26) Creatinine 1.7 mg/dL (0.7-1.3) Estimated GFR (Cockcroft-Gault) 39.8 BUN/Creatinine Ratio 16 (6-20) Glucose Level 154 mg/dL (70-99) Calcium Level 9.0 mg/dL (8.5-10.1) Total Bilirubin 0.5 mg/dL (0.2-1.0) Aspartate Amino Transf (AST/SGOT) 42 U/L (15-37) Alanine Aminotransferase (ALT/SGPT) 26 U/L (16-63) Alkaline Phosphatase 51 U/L (46-116) Total Protein 7.3 g/dL (6.4-8.2) Albumin 2.9 g/dL (3.4-5.0) Albumin/Globulin Ratio 0.7 (1.0-1.7) Assessment and Plan Assessmemt and Plan Problems Medical Problems: (1) CHF (congestive heart failure) Status: Acute (2) Respiratory failure Status: Acute Comment Review of Relevant I have reviewed the following items luis (where applicable) has been applied. Labs Laboratory Tests Test 12/15/18 10:30 12/15/18 11:52 12/15/18 14:21 12/15/18 17:20 O2 Saturation 95 % (92-99) Arterial Blood pH 7.43 (7.35-7.45) Arterial Blood pCO2 at Patient Temp 41 mmHg (35-46) Arterial Blood pO2 at Patient Temp 77 mmHg (65-108) Arterial Blood HCO3 26 mmol/L (21-28) Arterial Blood Base Excess 2 mmol/L (-3-3) FiO2 40 Glucose (Fingerstick) 331 mg/dL (70-99) 247 mg/dL (70-99) 249 mg/dL (70-99) Test 12/15/18 21:12 12/15/18 23:50 12/15/18 23:52 12/16/18 05:47 Glucose (Fingerstick) 207 mg/dL (70-99) 210 mg/dL (70-99) 103 mg/dL (70-99) Potassium Level 3.8 mmol/L (3.5-5.1) Magnesium Level 2.1 mg/dL (1.8-2.4) Test 12/16/18 08:46 12/16/18 12:45 12/16/18 14:00 12/16/18 16:57 Glucose (Fingerstick) 92 mg/dL (70-99) 166 mg/dL (70-99) 201 mg/dL (70-99) Hemoglobin A1c 9.2 % (4.8-5.6) Iron Level 38 ug/dL (65-175) Total Iron Binding Capacity 282 ug/dL (250-450) Iron Saturation 13 % (15-34) Test 12/16/18 21:12 12/17/18 01:34 12/17/18 03:30 12/17/18 07:33 Glucose (Fingerstick) 193 mg/dL (70-99) 146 mg/dL (70-99) 110 mg/dL (70-99) White Blood Count 9.8 x10^3/uL (4.0-11.0) Red Blood Count 3.72 x10^6/uL (4.30-5.70) Hemoglobin 11.2 g/dL (13.0-17.5) Hematocrit 34.5 % (39.0-53.0) Mean Corpuscular Volume 93 fL (79-100) Mean Corpuscular Hemoglobin 30 pg (25-35) Mean Corpuscular Hemoglobin Concent 32 g/dL (31-37) Red Cell Distribution Width 15.4 % (11.5-14.5) Platelet Count 202 x10^3/uL (140-400) Neutrophils (%) (Auto) 68 % (31-73) Lymphocytes (%) (Auto) 18 % (24-48) Monocytes (%) (Auto) 11 % (0-9) Eosinophils (%) (Auto) 3 % (0-3) Basophils (%) (Auto) 1 % (0-3) Neutrophils # (Auto) 6.7 x10^3uL (1.8-7.7) Lymphocytes # (Auto) 1.8 x10^3/uL (1.0-4.8) Monocytes # (Auto) 1.1 x10^3/uL (0.0-1.1) Eosinophils # (Auto) 0.3 x10^3/uL (0.0-0.7) Basophils # (Auto) 0.0 x10^3/uL (0.0-0.2) Sodium Level 143 mmol/L (136-145) Potassium Level 3.5 mmol/L (3.5-5.1) Chloride Level 104 mmol/L (98-107) Carbon Dioxide Level 30 mmol/L (21-32) Anion Gap 9 (6-14) Blood Urea Nitrogen 27 mg/dL (8-26) Creatinine 1.7 mg/dL (0.7-1.3) Estimated GFR (Cockcroft-Gault) 39.8 BUN/Creatinine Ratio 16 (6-20) Glucose Level 154 mg/dL (70-99) Calcium Level 9.0 mg/dL (8.5-10.1) Total Bilirubin 0.5 mg/dL (0.2-1.0) Aspartate Amino Transf (AST/SGOT) 42 U/L (15-37) Alanine Aminotransferase (ALT/SGPT) 26 U/L (16-63) Alkaline Phosphatase 51 U/L (46-116) Total Protein 7.3 g/dL (6.4-8.2) Albumin 2.9 g/dL (3.4-5.0) Albumin/Globulin Ratio 0.7 (1.0-1.7) Laboratory Tests Test 12/16/18 12:45 12/16/18 14:00 12/16/18 16:57 12/16/18 21:12 Glucose (Fingerstick) 166 mg/dL (70-99) 201 mg/dL (70-99) 193 mg/dL (70-99) Hemoglobin A1c 9.2 % (4.8-5.6) Iron Level 38 ug/dL (65-175) Total Iron Binding Capacity 282 ug/dL (250-450) Iron Saturation 13 % (15-34) Test 12/17/18 01:34 12/17/18 03:30 12/17/18 07:33 Glucose (Fingerstick) 146 mg/dL (70-99) 110 mg/dL (70-99) White Blood Count 9.8 x10^3/uL (4.0-11.0) Red Blood Count 3.72 x10^6/uL (4.30-5.70) Hemoglobin 11.2 g/dL (13.0-17.5) Hematocrit 34.5 % (39.0-53.0) Mean Corpuscular Volume 93 fL (79-100) Mean Corpuscular Hemoglobin 30 pg (25-35) Mean Corpuscular Hemoglobin Concent 32 g/dL (31-37) Red Cell Distribution Width 15.4 % (11.5-14.5) Platelet Count 202 x10^3/uL (140-400) Neutrophils (%) (Auto) 68 % (31-73) Lymphocytes (%) (Auto) 18 % (24-48) Monocytes (%) (Auto) 11 % (0-9) Eosinophils (%) (Auto) 3 % (0-3) Basophils (%) (Auto) 1 % (0-3) Neutrophils # (Auto) 6.7 x10^3uL (1.8-7.7) Lymphocytes # (Auto) 1.8 x10^3/uL (1.0-4.8) Monocytes # (Auto) 1.1 x10^3/uL (0.0-1.1) Eosinophils # (Auto) 0.3 x10^3/uL (0.0-0.7) Basophils # (Auto) 0.0 x10^3/uL (0.0-0.2) Sodium Level 143 mmol/L (136-145) Potassium Level 3.5 mmol/L (3.5-5.1) Chloride Level 104 mmol/L (98-107) Carbon Dioxide Level 30 mmol/L (21-32) Anion Gap 9 (6-14) Blood Urea Nitrogen 27 mg/dL (8-26) Creatinine 1.7 mg/dL (0.7-1.3) Estimated GFR (Cockcroft-Gault) 39.8 BUN/Creatinine Ratio 16 (6-20) Glucose Level 154 mg/dL (70-99) Calcium Level 9.0 mg/dL (8.5-10.1) Total Bilirubin 0.5 mg/dL (0.2-1.0) Aspartate Amino Transf (AST/SGOT) 42 U/L (15-37) Alanine Aminotransferase (ALT/SGPT) 26 U/L (16-63) Alkaline Phosphatase 51 U/L (46-116) Total Protein 7.3 g/dL (6.4-8.2) Albumin 2.9 g/dL (3.4-5.0) Albumin/Globulin Ratio 0.7 (1.0-1.7) Microbiology 12/13/18 Blood Culture - Preliminary, Resulted NO GROWTH AFTER 3 DAYS 12/14/18 - Final, Complete 12/14/18 - Final, Complete 12/14/18 - Final, Complete 12/14/18 - Final, Complete 12/14/18 - Final, Complete 12/14/18 - Final, Complete 12/14/18 Gram Stain Evaluation - Final, Complete 12/14/18 Sputum Culture - Final, Complete 12/14/18 Sputum Result 1 - Final, Complete Medications Current Medications Iodixanol (Visipaque 320) 100 ml STK-MED ONCE .ROUTE ; Start 12/13/18 at 12:53; Stop 12/13/18 at 12:54; Status DC Lidocaine HCl (Lidocaine 1% 20ml Vial) 20 ml STK-MED ONCE .ROUTE ; Start at 12:53; Stop 12/13/18 at 12:54; Status DC Heparin Sodium/ Sodium Chloride 1,000 ml @ As Directed STK-MED ONCE .ROUTE ; Start 12/13/18 at 12:53; Stop 12/13/18 at 12:54; Status DC Methylprednisolone Sodium Succinate (SOLU-Medrol 125MG VIAL) 125 mg STK-MED ONCE .ROUTE ; Start 12/13/18 at 12:57; Stop 12/13/18 at 12:58; Status DC Fentanyl Citrate (Fentanyl 2ml Vial) 100 mcg STK-MED ONCE .ROUTE ; Start at 12:57; Stop 12/13/18 at 12:58; Status DC Midazolam HCl (Versed) 2 mg STK-MED ONCE .ROUTE ; Start 12/13/18 at 12:57; Stop 12/13/18 at 12:58; Status DC Heparin Sodium (Porcine) (Heparin Sodium) 10,000 unit STK-MED ONCE .ROUTE ; Start 12/13/18 at 12:57; Stop 12/13/18 at 12:58; Status DC Verapamil HCl (Verapamil) 5 mg STK-MED ONCE .ROUTE ; Start 12/13/18 at 12:57; Stop 12/13/18 at 12:58; Status DC Famotidine (Pepcid Vial) 20 mg STK-MED ONCE .ROUTE ; Start 12/13/18 at 12:57; Stop 12/13/18 at 12:58; Status DC Diphenhydramine HCl (Benadryl) 50 mg STK-MED ONCE .ROUTE ; Start 12/13/18 at 12: 57; Stop 12/13/18 at 12:58; Status DC Nitroglycerin (Nitroglycerin) 200 mcg STK-MED ONCE .ROUTE ; Start 12/13/18 at 12 :57; Stop 12/13/18 at 12:58; Status DC Nitroglycerin/ Dextrose 250 ml @ As Directed STK-MED ONCE IV ; Start 12/13/18 at 13:04; Stop 12/13/18 at 13:05; Status DC Furosemide (Lasix) 100 mg STK-MED ONCE .ROUTE ; Start 12/13/18 at 13:07; Stop at 13:08; Status DC Nitroglycerin/ Dextrose 250 ml @ 0 mls/hr 1X ONCE IV Last administered on 12/13at 13:11; Start 12/13/18 at 13:15; Stop 12/13/18 at 13:16; Status DC Furosemide (Lasix) 80 mg 1X ONCE IVP Last administered on 12/13/18at 13:12; Start 12/13/18 at 13:15; Stop 12/13/18 at 13:16; Status DC Propofol 50 ml @ As Directed STK-MED ONCE IV ; Start 12/13/18 at 13:25; Stop at 13:26; Status DC Propofol 50 ml @ 1.857 mls/ hr 1X ONCE IV Last administered on 12/13/18at 13: 31; Start 12/13/18 at 13:30; Stop 12/13/18 at 21:10; Status DC Oxycodone HCl (Roxicodone) 5 mg PRN Q3HRS PRN PO MODERATE-SEVERE PAIN; Start at 14:15; Stop 12/14/18 at 07:57; Status DC Acetaminophen (Tylenol) 650 mg PRN Q6HRS PRN PO Headaches, Temp > 101.5'; Start 12/13/18 at 14:15; Stop 12/14/18 at 07:56; Status DC Lorazepam (Ativan) 0.5 mg PRN Q6HRS PRN IV ANXIETY / AGITATION; Start 12/13/18 at 14:15 Ondansetron HCl (Zofran) 4 mg PRN Q6HRS PRN IV NAUSEA/VOMITING; Start 12/13/18 at 14:15 Famotidine (Pepcid Vial) 20 mg BID IVP Last administered on 12/16/18 20:35; Start 12/13/18 at 21:00 Info (Icu Electrolyte Protocol) 1 ea DAILY MC Last administered on 12/15/18 09 :00; Start 12/14/18 at 09:00 Heparin Sodium (Porcine) (Heparin Sodium) 5,000 unit Q8HRS SQ ; Start 12/13/18 at 22:00; Stop 12/13/18 at 22:37; Status DC Sodium Chloride (Normal Saline Flush) 3 ml QSHIFT PRN IV AFTER MEDS AND BLOOD DRAWS; Start 12/13/18 at 14:15 Morphine Sulfate (Morphine Sulfate) 2 mg PRN Q1HR PRN IV PAIN MILD TO MOD; Start 12/13/18 at 14:15 Senna/Docusate Sodium (Senna Plus) 1 tab BID PO Last administered on 12/13/18 22:51; Start 12/13/18 at 21:00; Stop 12/14/18 at 08:00; Status DC Amlodipine Besylate (Norvasc) 10 mg DAILY PO Last administered on 12/14/18 08: 34; Start 12/14/18 at 09:00; Stop 12/14/18 at 10:00; Status DC Aspirin (Children'S Aspirin) 81 mg DAILY FT Last administered on 12/16/18 09: 14; Start 12/14/18 at 09:00 Clopidogrel Bisulfate (Plavix) 75 mg DAILY FT Last administered on 12/16/18 09 :13; Start 12/14/18 at 09:00 Furosemide (Lasix) 40 mg DAILY PO ; Start 12/14/18 at 09:00; Stop 12/14/18 at 09 :00; Status DC Insulin Glargine (Lantus) 70 units QHS SQ Last administered on 12/16/18 21:46 ; Start 12/13/18 at 21:00 Lisinopril (Prinivil) 40 mg DAILY FT Last administered on 12/16/18 09:13; Start 12/14/18 at 09:00 Metoprolol Tartrate (Lopressor) 25 mg BID PO ; Start 12/13/18 at 21:00; Stop at 21:00; Status DC Nitroglycerin (Nitrostat) 0.4 mg PRN Q5MIN PRN SL CHEST PAIN; Start 12/13/18 at 14:15; Stop 12/15/18 at 16:46; Status DC Potassium Chloride (Klor-Con) 20 meq DAILY PO ; Start 12/14/18 at 09:00; Stop at 09:00; Status DC Levothyroxine Sodium (Synthroid) 200 mcg DAILY06 PO ; Start 12/14/18 at 06:00; Stop 12/14/18 at 07:56; Status DC Atorvastatin Calcium (Lipitor) 10 mg QHS PO Last administered on 12/13/18at 22: 51; Start 12/13/18 at 21:00; Stop 12/14/18 at 10:03; Status DC Enoxaparin Sodium (Lovenox 40mg Syringe) 40 mg Q24H SQ ; Start 12/13/18 at 14:30 ; Stop 12/13/18 at 14:30; Status DC Famotidine (Pepcid Vial) 20 mg QHS IVP ; Start 12/13/18 at 21:00; Stop 12/13/18 at 21:00; Status DC Albuterol/ Ipratropium (Duoneb) 3 ml RTQID NEB Last administered on 12/17/18at 07:39; Start 12/13/18 at 16:00 Etomidate (Amidate) 20 mg STK-MED ONCE IV ; Start 12/13/18 at 15:01; Stop at 15:02; Status DC Succinylcholine Chloride (Anectine) 200 mg STK-MED ONCE .ROUTE ; Start 12/13/18 at 15:02; Stop 12/13/18 at 15:03; Status DC Propofol 100 ml @ 1.857 mls/ hr CONT PRN IV SEE I/O RECORD Last administered on 12/15/18at 05:36; Start 12/13/18 at 15:15 Furosemide (Lasix) 40 mg DAILY IVP Last administered on 12/16/18at 09:14; Start 12/14/18 at 09:00 Fentanyl Citrate (Fentanyl 2ml Vial) 50 mcg PRN Q2HR PRN IV PAIN SEVERE Last administered on 12/14/18at 21:29; Start 12/13/18 at 19:15 Heparin Sodium/ Dextrose 500 ml @ 0 mls/hr CONT PRN IV SEE I/O RECORD Last administered on 12/14/18 13:10; Start 12/13/18 at 22:45; Stop 12/15/18 at 09:13 ; Status DC Heparin Sodium (Porcine) (Heparin Sodium) 3,300 unit PRN Q6HRS PRN IV FOR UFH LEVEL LESS THAN 0.2 Last administered on 12/13/18at 22:50; Start 12/13/18 at 22: 45; Stop 12/15/18 at 09:13; Status DC Info (Anti-Coagulation Monitoring By Pharmacy) 1 each PRN DAILY PRN MC SEE COMMENTS Last administered on 12/14/18 09:56; Start 12/13/18 at 22:45; Stop at 09:13; Status DC Acetaminophen (Tylenol) 650 mg PRN Q6HRS PRN FT Headaches, Temp > 101.5'; Start 12/14/18 at 08:00 Levothyroxine Sodium (Synthroid) 200 mcg DAILY06 FT Last administered on 06:13; Start 12/14/18 at 07:56 Oxycodone HCl (Roxicodone) 5 mg PRN Q3HRS PRN FT MODERATE-SEVERE PAIN; Start at 07:57 Potassium Chloride (KCl Oral Soln) 20 meq DAILY PEG Last administered on 09:17; Start 12/14/18 at 09:00 Docusate Sodium (Colace Solution) 100 mg BID FT Last administered on 12/16/18 21:41; Start 12/14/18 at 09:00 Senna (Senna Oral Syrup) 528 mg BID FT Last administered on 12/16/18 21:41; Start 12/14/18 at 09:00 Amlodipine Besylate (Norvasc) 10 mg DAILY FT Last administered on 12/16/18 09: 13; Start 12/14/18 at 10:00 Atorvastatin Calcium (Lipitor) 10 mg QHS FT Last administered on 12/16/18 20: 35; Start 12/14/18 at 21:00 Piperacillin Sod/ Tazobactam Sod (Zosyn Per Pharmacy) 1 each PRN DAILY PRN MC SEE COMMENTS; Start 12/14/18 at 11:30 Piperacillin Sod/ Tazobactam Sod 3.375 gm/Sodium Chloride 50 ml @ 100 mls/hr Q6HRS IV Last administered on 12/17/18at 06:10; Start 12/14/18 at 12:00 Iodixanol (Visipaque 320) 100 ml STK-MED ONCE .ROUTE ; Start 12/14/18 at 13:55; Stop 12/14/18 at 13:56; Status DC Heparin Sodium/ Sodium Chloride 1,000 ml @ As Directed STK-MED ONCE .ROUTE ; Start 12/14/18 at 13:56; Stop 12/14/18 at 13:57; Status DC Lidocaine HCl (Xylocaine-Mpf 1% 2ml Vial) 2 ml STK-MED ONCE .ROUTE ; Start 12/14 at 13:56; Stop 12/14/18 at 13:57; Status DC Methylprednisolone Sodium Succinate (SOLU-Medrol 125MG VIAL) 125 mg STK-MED ONCE .ROUTE ; Start 12/14/18 at 15:06; Stop 12/14/18 at 15:07; Status DC Diphenhydramine HCl (Benadryl) 50 mg STK-MED ONCE .ROUTE ; Start 12/14/18 at 15: 06; Stop 12/14/18 at 15:07; Status DC Heparin Sodium (Porcine) (Heparin Sodium) 10,000 unit STK-MED ONCE .ROUTE ; Start 12/14/18 at 15:13; Stop 12/14/18 at 15:14; Status DC Verapamil HCl (Verapamil) 5 mg STK-MED ONCE .ROUTE ; Start 12/14/18 at 15:13; Stop 12/14/18 at 15:14; Status DC Nitroglycerin (Nitroglycerin) 200 mcg STK-MED ONCE .ROUTE ; Start 12/14/18 at 15 :14; Stop 12/14/18 at 15:15; Status DC Nitroglycerin (Nitroglycerin) 200 mcg 1X ONCE IART Last administered on at 15:35; Start 12/14/18 at 15:30; Stop 12/14/18 at 15:31; Status DC Verapamil HCl (Verapamil) 2.5 mg 1X ONCE IART Last administered on 12/14/18at 15:35; Start 12/14/18 at 15:30; Stop 12/14/18 at 15:31; Status DC Heparin Sodium (Porcine) (Heparin Sodium) 2,500 unit 1X ONCE IART Last administered on 12/14/18 15:34; Start 12/14/18 at 15:30; Stop 12/14/18 at 15:31 ; Status DC Heparin Sodium/ Sodium Chloride (HEPARIN for ARTERIAL LINE FLUSH) 1,000 unit 1X ONCE IART Last administered on 12/14/18 15:33; Start 12/14/18 at 15:30; Stop 12/14/18 at 15:31; Status DC Heparin Sodium/ Sodium Chloride (HEPARIN for ARTERIAL LINE FLUSH) 1,000 unit 1X ONCE IART Last administered on 12/14/18 15:34; Start 12/14/18 at 15:30; Stop 12/14/18 at 15:31; Status DC Iodixanol (Visipaque 320) 100 ml 1X ONCE IART Last administered on 12/14/18 15:33; Start 12/14/18 at 15:30; Stop 12/14/18 at 15:31; Status DC Lidocaine HCl (Xylocaine-Mpf 1% 2ml Vial) 2 ml 1X ONCE INJ Last administered on 12/14/18 15:34; Start 12/14/18 at 15:30; Stop 12/14/18 at 15:31; Status DC Methylprednisolone Sodium Succinate (SOLU-Medrol 125MG VIAL) 125 mg 1X ONCE IV Last administered on 12/14/18 15:35; Start 12/14/18 at 15:30; Stop 12/14/18 at 15:31; Status DC Diphenhydramine HCl (Benadryl) 50 mg 1X ONCE IVP Last administered on 15:35; Start 12/14/18 at 15:30; Stop 12/14/18 at 15:31; Status DC Info (CONTRAST GIVEN -- Rx MONITORING) 1 each PRN DAILY PRN MC SEE COMMENTS; Start 12/14/18 at 15:30; Stop 12/16/18 at 15:29; Status DC Epinephrine HCl (EPINEPHrine SYRINGE) 1 mg STK-MED ONCE .ROUTE ; Start 12/13/18 at 12:00; Stop 12/14/18 at 15:50; Status DC Insulin Glargine (Lantus) 12 units BID SQ ; Start 12/14/18 at 21:00; Status UNV Insulin Human Lispro (HumaLOG) 0-7 UNITS TIDWMEALS SQ Last administered on 12/14at 17:04; Start 12/14/18 at 17:00; Stop 12/14/18 at 21:44; Status DC Dextrose (Dextrose 50%-Water Syringe) 12.5 gm PRN Q15MIN PRN IV SEE COMMENTS; Start 12/14/18 at 16:45; Stop 12/16/18 at 10:04; Status DC Sodium Chloride (Normal Saline Flush) 3 ml QSHIFT PRN IV AFTER MEDS AND BLOOD DRAWS; Start 12/14/18 at 16:45 Nitroglycerin (Nitrostat) 0.4 mg PRN Q5MIN PRN SL CHEST PAIN; Start 12/14/18 at 16:45 Multi-Ingred Cream/Lotion/Oil/ Oint (Artificial Tears Eye Ointment) 1 shae PRN Q1HR PRN OU DRY EYE Last administered on 12/15/18at 09:41; Start 12/14/18 at 18: 45 Insulin Human Lispro (HumaLOG) 0-7 UNITS Q6HRS SQ Last administered on at 00:06; Start 12/15/18 at 00:00; Stop 12/16/18 at 07:38; Status DC Potassium Chloride (KCl Oral Soln) 40 meq 1X ONCE PO Last administered on 12/15at 07:44; Start 12/15/18 at 07:00; Stop 12/15/18 at 07:01; Status DC Enoxaparin Sodium (Lovenox 40mg Syringe) 40 mg Q24H SQ Last administered on at 16:47; Start 12/15/18 at 13:00 Carvedilol (Coreg) 6.25 mg BIDWMEALS PO ; Start 12/15/18 at 17:00; Stop at 17:00; Status DC Carvedilol (Coreg) 3.125 mg BIDWMEALS PO Last administered on 12/16/18at 18:07; Start 12/15/18 at 17:00 Lactobacillus Rhamnosus (Culturelle) 1 cap BID PO Last administered on at 20:35; Start 12/16/18 at 09:00 Insulin Human Lispro (HumaLOG) 0-7 UNITS TIDBFRMEAL SQ Last administered on at 18:09; Start 12/16/18 at 11:30 Dextrose (Dextrose 50%-Water Syringe) 12.5 gm PRN Q15MIN PRN IV SEE COMMENTS; Start 12/16/18 at 07:45 Hydralazine HCl (Apresoline Inj) 10 mg PRN Q6HRS PRN IVP ELEVATED BP, SEE COMMENTS; Start 12/17/18 at 01:45 Active Scripts Active Reported Janumet 50-1,000 Mg Tablet (Sitagliptin Phos/Metformin Hcl) 1 Each Tablet 2 Tab PO QEVNG Clopidogrel (Clopidogrel Bisulfate) 75 Mg Tablet 1 Tab PO DAILY Levothyroxine Sodium 200 Mcg Tablet 1 Tab PO DAILY Lisinopril 40 Mg Tablet 40 Mg PO DAILY Klor-Con M20 (Potassium Chloride) 20 Meq Tab.er.prt 20 Meq PO DAILY Metformin Hcl Er (Metformin Hcl) 1,000 Mg Tab.er.24 1 Tab PO BID NITROGLYCERIN SubLingual (Nitroglycerin) 0.4 Mg Tab.subl 0.4 Mg SL PRN Q5MIN PRN Glimepiride 4 Mg Tablet 1 Tab PO DAILY Lantus Solostar (Insulin Glargine,Hum.rec.anlog) 100 Unit/1 Ml Insuln.pen 70 Unit SQ QHS Pravastatin Sodium 40 Mg Tablet 1 Tab PO QHS Amlodipine Besylate 10 Mg Tablet 10 Mg PO DAILY Aspir 81 (Aspirin) 81 Mg Tablet. 1 Tab PO DAILY Metoprolol Tartrate 25 Mg Tablet 1 Tab PO BID Furosemide 40 Mg Tablet 1 Tab PO DAILY Vitals/I & O Vital Sign - Last 24 Hours 12/16/18 12/16/18 12/16/18 12/16/18 10:00 11:00 11:35 11:49 Temp 97.9 97.9 Pulse 76 77 Resp 17 22 B/P (MAP) 136/55 (82) 128/72 (90) Pulse Ox 95 95 95 O2 Delivery Nasal Cannula Nasal Cannula Nasal Cannula Nasal Cannula O2 Flow Rate 3.0 4.0 3.0 4.0 12/16/18 12/16/18 12/16/18 12/16/18 15:00 15:28 18:07 19:36 Temp 98.1 98.1 Pulse 81 93 Resp 22 B/P (MAP) 185/75 (111) Pulse Ox 100 95 O2 Delivery Nasal Cannula Nasal Cannula Nasal Cannula O2 Flow Rate 4.0 3.0 3.0 12/16/18 12/16/18 12/16/18 12/17/18 19:59 20:00 23:28 03:55 Temp 98.5 98.0 98.2 98.5 98.0 98.2 Pulse 77 78 84 Resp B/P (MAP) 161/73 (102) 154/72 (99) 170/82 (111) Pulse Ox 98 97 98 O2 Delivery Nasal Cannula Nasal Cannula Nasal Cannula Nasal Cannula O2 Flow Rate 4.0 4.0 4.0 4.0 12/17/18 12/17/18 12/17/18 06:56 07:40 08:15 Temp 98.6 98.6 Pulse 76 Resp 24 B/P (MAP) 139/72 (94) Pulse Ox 95 O2 Delivery Nasal Cannula Nasal Cannula Nasal Cannula O2 Flow Rate 3.0 3.0 3.0 Intake and Output 12/16/18 12/16/18 12/17/18 15:00 23:00 07:00 Intake Total 240 ml 200 ml 1100 ml Output Total 675 ml 750 ml Balance -435 ml 200 ml 350 ml MEHRAN LEWIS MD Dec 17, 2018 09:53
--- NOTE | 2018-12-17 09:56 | PDOC3 ---
Discharge Summary Date of Admission: Dec 13, 2018 Date of Discharge: Dec 17, 2018 Follow-Up: 1-2 days Admitting Diagnosis comment: Chief Complaint Chief Complaint [employer] the patient was found down in the shower by someone in his home, although the reliability of this information is unclear at this time. They placed the patient on BiPAP due to respiratory difficulty and hypoxia, and by the time the patient arrived in the emergency department, he was barely arousable. EMS activated code STEMI, DISCHARGE DIAGNOSIS Acute hypoxemic respiratory failure secondary to most likely CHF exacerbation Acute on chronic combined systolic and diastolic dysfunction ISCHEMIC CARDIOMYOPATHY; EF 40-45%. severe morbid Obesity with a BMI of 39 Obesity hypoventilation syndrome Diabetes mellitus type 2 insulin requiring History off dyslipidemia on statin therapy History of hypothyroidism History of coronary artery disease status post PCI approximately a year ago with RCA involvement currently undergoing medical management HX carotid endarterectomy COPD secondary to smoking history with a greater than [id number] history of smoking quit approximately 10 years ago ECHO shows Left ventricle systolic function is mild to moderately impaired. The Ejection Fraction is 40-45%. There is global hypokinesis of the left ventricle. Septal motion suggestive of conduction defect. Cholelithiasis. Right adrenal adenoma or myelolipoma normocytic anemia Plan: Continue supportive measures Management as per Dr. Montoya recommendations greatly appreciated Continue with diuresis Further recommendations based on the clinical course d/c planning 32 min Past Medical History Past Medical History: CVA, Diabetes-Type II, Hypertension, Other Additional Past Medical Histor: lower ext swelling, short term memory loss Past Surgical History: Other Additional Past Surgical Histo: carotid endarterectomy Smoking: Quit Greater Than 1 Year Additional Information: Former Smoker, 3ppd smoker x approx 40 years Alcohol Use: Rarely Drug Use: None History of Present Illness History of Present Illness provide supportive measures the ICU AORTIC VALVE The aortic valve is not well visualized but appears calcified and displays decreased opening per Doppler interrogation. Doppler and Color Flow revealed no significant aortic regurgitation. Calculated aortic valve area is 1.53 cm2 with maximum pressure gradient of 18 mmHg and mean pressure gradient of 11 mmHg. Doppler and color-flow analysis revealed mild aortic stenosis. MITRAL VALVE The mitral valve is calcified but opens well. There is no evidence of mitral valve prolapse. There is no mitral valve stenosis. Doppler and Color-flow revealed trace mitral regurgitation. TRICUSPID VALVE The tricuspid valve is normal in structure and function. Doppler and Color Flow revealed no tricuspid valve regurgitation noted. There is no tricuspid valve stenosis. PULMONIC VALVE The pulmonic valve is not well visualized. Doppler and Color Flow revealed mild pulmonic valvular regurgitation. There is no pulmonic valvular stenosis. GREAT VESSELS The aortic root is normal in size. The ascending aorta is not well seen. The IVC was not visualized. PERICARDIAL EFFUSION There is no evidence of significant pericardial effusion. Critical Notification Critical Value: No <Conclusion> Left ventricle systolic function is mild to moderately impaired. The Ejection Fraction is 40-45%. There is global hypokinesis of the left ventricle. Septal motion suggestive of conduction defect. Signed by : Gregg Plummer, Electronically Approved : 12/14/2018 11:07:04 37 min cc time Vitals Vitals Vital Signs Date Time Temp Pulse Resp B/P (MAP) Pulse Ox O2 Delivery O2 Flow Rate FiO2 12/17/18 08:15 Nasal Cannula 3.0 12/17/18 06:56 98.6 76 24 139/72 (94) 95 98.6 Physical Exam Physical Exam Gen.: Obese , no apparent distress cheerful Head: Normal shape atraumatic Eyes: Pupils equal reactive to light and accommodation, normal conjunctivae and lids Ears: Normal shape Nose: Normal shape no trauma Mouth: No exudates of the back of throat no thrush no lesions Neck: Supple no JVD no carotid bruit or lymphadenopathy no thyromegaly Chest: Lungs clear to auscultation with good inspiratory effort lower lung field crackles, no rales or rhonchi Cardiovascular: S1-S2 regular rhythm no murmurs gallops or rubs Abdomen: Bowel sounds present soft nontender no hepatosplenomegaly appreciated sign Extremities: No clubbing no cyanosis no edema peripheral pulses palpated bilaterally Neurological: Alert awake oriented in person time place and situation, cranial nerves II through XII intact, no motor or sensory deficits appreciated Psych: Appropriate mood, cooperative General: Alert, Oriented X3, Cooperative, Other (intubated, sedated) Heart: Regular rate, Other (tele SB, distant heart tones) Lungs: Clear, Other (decrease bases) Abdomen: Soft, No tenderness, Other (obese) Extremities: No cyanosis, Normal pulses, Other (2+ bilateral LE edema ) Skin: No significant lesion FINAL DIAGNOSIS Problems Medical Problems: (1) CHF (congestive heart failure) Status: Acute (2) Respiratory failure Status: Acute Brief Hospital Course Mr. Arce is a 73 old [sex] who presented with [ chf exac, resp failure] CONDITION AT DISCHARGE: Improved Discharge Medications Current Medications Iodixanol (Visipaque 320) 100 ml STK-MED ONCE .ROUTE ; Start 12/13/18 at 12:53; Stop 12/13/18 at 12:54; Status DC Lidocaine HCl (Lidocaine 1% 20ml Vial) 20 ml STK-MED ONCE .ROUTE ; Start at 12:53; Stop 12/13/18 at 12:54; Status DC Heparin Sodium/ Sodium Chloride 1,000 ml @ As Directed STK-MED ONCE .ROUTE ; Start 12/13/18 at 12:53; Stop 12/13/18 at 12:54; Status DC Methylprednisolone Sodium Succinate (SOLU-Medrol 125MG VIAL) 125 mg STK-MED ONCE .ROUTE ; Start 12/13/18 at 12:57; Stop 12/13/18 at 12:58; Status DC Fentanyl Citrate (Fentanyl 2ml Vial) 100 mcg STK-MED ONCE .ROUTE ; Start at 12:57; Stop 12/13/18 at 12:58; Status DC Midazolam HCl (Versed) 2 mg STK-MED ONCE .ROUTE ; Start 12/13/18 at 12:57; Stop 12/13/18 at 12:58; Status DC Heparin Sodium (Porcine) (Heparin Sodium) 10,000 unit STK-MED ONCE .ROUTE ; Start 12/13/18 at 12:57; Stop 12/13/18 at 12:58; Status DC Verapamil HCl (Verapamil) 5 mg STK-MED ONCE .ROUTE ; Start 12/13/18 at 12:57; Stop 12/13/18 at 12:58; Status DC Famotidine (Pepcid Vial) 20 mg STK-MED ONCE .ROUTE ; Start 12/13/18 at 12:57; Stop 12/13/18 at 12:58; Status DC Diphenhydramine HCl (Benadryl) 50 mg STK-MED ONCE .ROUTE ; Start 12/13/18 at 12: 57; Stop 12/13/18 at 12:58; Status DC Nitroglycerin (Nitroglycerin) 200 mcg STK-MED ONCE .ROUTE ; Start 12/13/18 at 12 :57; Stop 12/13/18 at 12:58; Status DC Nitroglycerin/ Dextrose 250 ml @ As Directed STK-MED ONCE IV ; Start 12/13/18 at 13:04; Stop 12/13/18 at 13:05; Status DC Furosemide (Lasix) 100 mg STK-MED ONCE .ROUTE ; Start 12/13/18 at 13:07; Stop at 13:08; Status DC Nitroglycerin/ Dextrose 250 ml @ 0 mls/hr 1X ONCE IV Last administered on 12/13at 13:11; Start 12/13/18 at 13:15; Stop 12/13/18 at 13:16; Status DC Furosemide (Lasix) 80 mg 1X ONCE IVP Last administered on 12/13/18at 13:12; Start 12/13/18 at 13:15; Stop 12/13/18 at 13:16; Status DC Propofol 50 ml @ As Directed STK-MED ONCE IV ; Start 12/13/18 at 13:25; Stop at 13:26; Status DC Propofol 50 ml @ 1.857 mls/ hr 1X ONCE IV Last administered on 12/13/18at 13: 31; Start 12/13/18 at 13:30; Stop 12/13/18 at 21:10; Status DC Oxycodone HCl (Roxicodone) 5 mg PRN Q3HRS PRN PO MODERATE-SEVERE PAIN; Start at 14:15; Stop 12/14/18 at 07:57; Status DC Acetaminophen (Tylenol) 650 mg PRN Q6HRS PRN PO Headaches, Temp > 101.5'; Start 12/13/18 at 14:15; Stop 12/14/18 at 07:56; Status DC Lorazepam (Ativan) 0.5 mg PRN Q6HRS PRN IV ANXIETY / AGITATION; Start 12/13/18 at 14:15 Ondansetron HCl (Zofran) 4 mg PRN Q6HRS PRN IV NAUSEA/VOMITING; Start 12/13/18 at 14:15 Famotidine (Pepcid Vial) 20 mg BID IVP Last administered on 12/16/18at 20:35; Start 12/13/18 at 21:00 Info (Icu Electrolyte Protocol) 1 ea DAILY MC Last administered on 12/15/18at 09 :00; Start 12/14/18 at 09:00 Heparin Sodium (Porcine) (Heparin Sodium) 5,000 unit Q8HRS SQ ; Start 12/13/18 at 22:00; Stop 12/13/18 at 22:37; Status DC Sodium Chloride (Normal Saline Flush) 3 ml QSHIFT PRN IV AFTER MEDS AND BLOOD DRAWS; Start 12/13/18 at 14:15 Morphine Sulfate (Morphine Sulfate) 2 mg PRN Q1HR PRN IV PAIN MILD TO MOD; Start 12/13/18 at 14:15 Senna/Docusate Sodium (Senna Plus) 1 tab BID PO Last administered on 12/13/18at 22:51; Start 12/13/18 at 21:00; Stop 12/14/18 at 08:00; Status DC Amlodipine Besylate (Norvasc) 10 mg DAILY PO Last administered on 12/14/18at 08: 34; Start 12/14/18 at 09:00; Stop 12/14/18 at 10:00; Status DC Aspirin (Children'S Aspirin) 81 mg DAILY FT Last administered on 12/16/18at 09: 14; Start 12/14/18 at 09:00 Clopidogrel Bisulfate (Plavix) 75 mg DAILY FT Last administered on 12/16/18at 09 :13; Start 12/14/18 at 09:00 Furosemide (Lasix) 40 mg DAILY PO ; Start 12/14/18 at 09:00; Stop 12/14/18 at 09 :00; Status DC Insulin Glargine (Lantus) 70 units QHS SQ Last administered on 12/16/18at 21:46 ; Start 12/13/18 at 21:00 Lisinopril (Prinivil) 40 mg DAILY FT Last administered on 12/16/18at 09:13; Start 12/14/18 at 09:00 Metoprolol Tartrate (Lopressor) 25 mg BID PO ; Start 12/13/18 at 21:00; Stop at 21:00; Status DC Nitroglycerin (Nitrostat) 0.4 mg PRN Q5MIN PRN SL CHEST PAIN; Start 12/13/18 at 14:15; Stop 12/15/18 at 16:46; Status DC Potassium Chloride (Klor-Con) 20 meq DAILY PO ; Start 12/14/18 at 09:00; Stop at 09:00; Status DC Levothyroxine Sodium (Synthroid) 200 mcg DAILY06 PO ; Start 12/14/18 at 06:00; Stop 12/14/18 at 07:56; Status DC Atorvastatin Calcium (Lipitor) 10 mg QHS PO Last administered on 12/13/18at 22: 51; Start 12/13/18 at 21:00; Stop 12/14/18 at 10:03; Status DC Enoxaparin Sodium (Lovenox 40mg Syringe) 40 mg Q24H SQ ; Start 12/13/18 at 14:30 ; Stop 12/13/18 at 14:30; Status DC Famotidine (Pepcid Vial) 20 mg QHS IVP ; Start 12/13/18 at 21:00; Stop 12/13/18 at 21:00; Status DC Albuterol/ Ipratropium (Duoneb) 3 ml RTQID NEB Last administered on 12/17/18at 07:39; Start 12/13/18 at 16:00 Etomidate (Amidate) 20 mg STK-MED ONCE IV ; Start 12/13/18 at 15:01; Stop at 15:02; Status DC Succinylcholine Chloride (Anectine) 200 mg STK-MED ONCE .ROUTE ; Start 12/13/18 at 15:02; Stop 12/13/18 at 15:03; Status DC Propofol 100 ml @ 1.857 mls/ hr CONT PRN IV SEE I/O RECORD Last administered on 12/15/18at 05:36; Start 12/13/18 at 15:15 Furosemide (Lasix) 40 mg DAILY IVP Last administered on 12/16/18at 09:14; Start 12/14/18 at 09:00 Fentanyl Citrate (Fentanyl 2ml Vial) 50 mcg PRN Q2HR PRN IV PAIN SEVERE Last administered on 12/14/18at 21:29; Start 12/13/18 at 19:15 Heparin Sodium/ Dextrose 500 ml @ 0 mls/hr CONT PRN IV SEE I/O RECORD Last administered on 12/14/18at 13:10; Start 12/13/18 at 22:45; Stop 12/15/18 at 09:13 ; Status DC Heparin Sodium (Porcine) (Heparin Sodium) 3,300 unit PRN Q6HRS PRN IV FOR UFH LEVEL LESS THAN 0.2 Last administered on 12/13/18 22:50; Start 12/13/18 at 22: 45; Stop 12/15/18 at 09:13; Status DC Info (Anti-Coagulation Monitoring By Pharmacy) 1 each PRN DAILY PRN MC SEE COMMENTS Last administered on 12/14/18 09:56; Start 12/13/18 at 22:45; Stop at 09:13; Status DC Acetaminophen (Tylenol) 650 mg PRN Q6HRS PRN FT Headaches, Temp > 101.5'; Start 12/14/18 at 08:00 Levothyroxine Sodium (Synthroid) 200 mcg DAILY06 FT Last administered on 06:13; Start 12/14/18 at 07:56 Oxycodone HCl (Roxicodone) 5 mg PRN Q3HRS PRN FT MODERATE-SEVERE PAIN; Start at 07:57 Potassium Chloride (KCl Oral Soln) 20 meq DAILY PEG Last administered on 09:17; Start 12/14/18 at 09:00 Docusate Sodium (Colace Solution) 100 mg BID FT Last administered on 12/16/18 21:41; Start 12/14/18 at 09:00 Senna (Senna Oral Syrup) 528 mg BID FT Last administered on 12/16/18 21:41; Start 12/14/18 at 09:00 Amlodipine Besylate (Norvasc) 10 mg DAILY FT Last administered on 12/16/18 09: 13; Start 12/14/18 at 10:00 Atorvastatin Calcium (Lipitor) 10 mg QHS FT Last administered on 12/16/18 20: 35; Start 12/14/18 at 21:00 Piperacillin Sod/ Tazobactam Sod (Zosyn Per Pharmacy) 1 each PRN DAILY PRN MC SEE COMMENTS; Start 12/14/18 at 11:30 Piperacillin Sod/ Tazobactam Sod 3.375 gm/Sodium Chloride 50 ml @ 100 mls/hr Q6HRS IV Last administered on 12/17/18 06:10; Start 12/14/18 at 12:00 Iodixanol (Visipaque 320) 100 ml STK-MED ONCE .ROUTE ; Start 12/14/18 at 13:55; Stop 12/14/18 at 13:56; Status DC Heparin Sodium/ Sodium Chloride 1,000 ml @ As Directed STK-MED ONCE .ROUTE ; Start 12/14/18 at 13:56; Stop 12/14/18 at 13:57; Status DC Lidocaine HCl (Xylocaine-Mpf 1% 2ml Vial) 2 ml STK-MED ONCE .ROUTE ; Start 12/14 at 13:56; Stop 12/14/18 at 13:57; Status DC Methylprednisolone Sodium Succinate (SOLU-Medrol 125MG VIAL) 125 mg STK-MED ONCE .ROUTE ; Start 12/14/18 at 15:06; Stop 12/14/18 at 15:07; Status DC Diphenhydramine HCl (Benadryl) 50 mg STK-MED ONCE .ROUTE ; Start 12/14/18 at 15: 06; Stop 12/14/18 at 15:07; Status DC Heparin Sodium (Porcine) (Heparin Sodium) 10,000 unit STK-MED ONCE .ROUTE ; Start 12/14/18 at 15:13; Stop 12/14/18 at 15:14; Status DC Verapamil HCl (Verapamil) 5 mg STK-MED ONCE .ROUTE ; Start 12/14/18 at 15:13; Stop 12/14/18 at 15:14; Status DC Nitroglycerin (Nitroglycerin) 200 mcg STK-MED ONCE .ROUTE ; Start 12/14/18 at 15 :14; Stop 12/14/18 at 15:15; Status DC Nitroglycerin (Nitroglycerin) 200 mcg 1X ONCE IART Last administered on at 15:35; Start 12/14/18 at 15:30; Stop 12/14/18 at 15:31; Status DC Verapamil HCl (Verapamil) 2.5 mg 1X ONCE IART Last administered on 12/14/18at 15:35; Start 12/14/18 at 15:30; Stop 12/14/18 at 15:31; Status DC Heparin Sodium (Porcine) (Heparin Sodium) 2,500 unit 1X ONCE IART Last administered on 12/14/18at 15:34; Start 12/14/18 at 15:30; Stop 12/14/18 at 15:31 ; Status DC Heparin Sodium/ Sodium Chloride (HEPARIN for ARTERIAL LINE FLUSH) 1,000 unit 1X ONCE IART Last administered on 12/14/18at 15:33; Start 12/14/18 at 15:30; Stop 12/14/18 at 15:31; Status DC Heparin Sodium/ Sodium Chloride (HEPARIN for ARTERIAL LINE FLUSH) 1,000 unit 1X ONCE IART Last administered on 12/14/18at 15:34; Start 12/14/18 at 15:30; Stop 12/14/18 at 15:31; Status DC Iodixanol (Visipaque 320) 100 ml 1X ONCE IART Last administered on 12/14/18at 15:33; Start 12/14/18 at 15:30; Stop 12/14/18 at 15:31; Status DC Lidocaine HCl (Xylocaine-Mpf 1% 2ml Vial) 2 ml 1X ONCE INJ Last administered on 12/14/18 15:34; Start 12/14/18 at 15:30; Stop 12/14/18 at 15:31; Status DC Methylprednisolone Sodium Succinate (SOLU-Medrol 125MG VIAL) 125 mg 1X ONCE IV Last administered on 12/14/18at 15:35; Start 12/14/18 at 15:30; Stop 12/14/18 at 15:31; Status DC Diphenhydramine HCl (Benadryl) 50 mg 1X ONCE IVP Last administered on at 15:35; Start 12/14/18 at 15:30; Stop 12/14/18 at 15:31; Status DC Info (CONTRAST GIVEN -- Rx MONITORING) 1 each PRN DAILY PRN MC SEE COMMENTS; Start 12/14/18 at 15:30; Stop 12/16/18 at 15:29; Status DC Epinephrine HCl (EPINEPHrine SYRINGE) 1 mg STK-MED ONCE .ROUTE ; Start 12/13/18 at 12:00; Stop 12/14/18 at 15:50; Status DC Insulin Glargine (Lantus) 12 units BID SQ ; Start 12/14/18 at 21:00; Status UNV Insulin Human Lispro (HumaLOG) 0-7 UNITS TIDWMEALS SQ Last administered on 12/14at 17:04; Start 12/14/18 at 17:00; Stop 12/14/18 at 21:44; Status DC Dextrose (Dextrose 50%-Water Syringe) 12.5 gm PRN Q15MIN PRN IV SEE COMMENTS; Start 12/14/18 at 16:45; Stop 12/16/18 at 10:04; Status DC Sodium Chloride (Normal Saline Flush) 3 ml QSHIFT PRN IV AFTER MEDS AND BLOOD DRAWS; Start 12/14/18 at 16:45 Nitroglycerin (Nitrostat) 0.4 mg PRN Q5MIN PRN SL CHEST PAIN; Start 12/14/18 at 16:45 Multi-Ingred Cream/Lotion/Oil/ Oint (Artificial Tears Eye Ointment) 1 shae PRN Q1HR PRN OU DRY EYE Last administered on 12/15/18at 09:41; Start 12/14/18 at 18: 45 Insulin Human Lispro (HumaLOG) 0-7 UNITS Q6HRS SQ Last administered on at 00:06; Start 12/15/18 at 00:00; Stop 12/16/18 at 07:38; Status DC Potassium Chloride (KCl Oral Soln) 40 meq 1X ONCE PO Last administered on 12/15at 07:44; Start 12/15/18 at 07:00; Stop 12/15/18 at 07:01; Status DC Enoxaparin Sodium (Lovenox 40mg Syringe) 40 mg Q24H SQ Last administered on at 16:47; Start 12/15/18 at 13:00 Carvedilol (Coreg) 6.25 mg BIDWMEALS PO ; Start 12/15/18 at 17:00; Stop at 17:00; Status DC Carvedilol (Coreg) 3.125 mg BIDWMEALS PO Last administered on 12/16/18at 18:07; Start 12/15/18 at 17:00 Lactobacillus Rhamnosus (Culturelle) 1 cap BID PO Last administered on at 20:35; Start 12/16/18 at 09:00 Insulin Human Lispro (HumaLOG) 0-7 UNITS TIDBFRMEAL SQ Last administered on at 18:09; Start 12/16/18 at 11:30 Dextrose (Dextrose 50%-Water Syringe) 12.5 gm PRN Q15MIN PRN IV SEE COMMENTS; Start 12/16/18 at 07:45 Hydralazine HCl (Apresoline Inj) 10 mg PRN Q6HRS PRN IVP ELEVATED BP, SEE COMMENTS; Start 12/17/18 at 01:45 Active Scripts Active Reported Janumet 50-1,000 Mg Tablet (Sitagliptin Phos/Metformin Hcl) 1 Each Tablet 2 Tab PO QEVNG Clopidogrel (Clopidogrel Bisulfate) 75 Mg Tablet 1 Tab PO DAILY Levothyroxine Sodium 200 Mcg Tablet 1 Tab PO DAILY Lisinopril 40 Mg Tablet 40 Mg PO DAILY Klor-Con M20 (Potassium Chloride) 20 Meq Tab.er.prt 20 Meq PO DAILY Metformin Hcl Er (Metformin Hcl) 1,000 Mg Tab.er.24 1 Tab PO BID NITROGLYCERIN SubLingual (Nitroglycerin) 0.4 Mg Tab.subl 0.4 Mg SL PRN Q5MIN PRN Glimepiride 4 Mg Tablet 1 Tab PO DAILY Lantus Solostar (Insulin Glargine,Hum.rec.anlog) 100 Unit/1 Ml Insuln.pen 70 Unit SQ QHS Pravastatin Sodium 40 Mg Tablet 1 Tab PO QHS Amlodipine Besylate 10 Mg Tablet 10 Mg PO DAILY Aspir 81 (Aspirin) 81 Mg Tablet.dr 1 Tab PO DAILY Metoprolol Tartrate 25 Mg Tablet 1 Tab PO BID Furosemide 40 Mg Tablet 1 Tab PO DAILY Vital Signs Vital Signs Date Time Temp Pulse Resp B/P (MAP) Pulse Ox O2 Delivery O2 Flow Rate FiO2 12/17/18 08:15 Nasal Cannula 3.0 12/17/18 06:56 98.6 76 24 139/72 (94) 95 98.6 Labs Laboratory Tests Test 12/15/18 10:30 12/15/18 11:52 12/15/18 14:21 12/15/18 17:20 O2 Saturation 95 % (92-99) Arterial Blood pH 7.43 (7.35-7.45) Arterial Blood pCO2 at Patient Temp 41 mmHg (35-46) Arterial Blood pO2 at Patient Temp 77 mmHg (65-108) Arterial Blood HCO3 26 mmol/L (21-28) Arterial Blood Base Excess 2 mmol/L (-3-3) FiO2 40 Glucose (Fingerstick) 331 mg/dL (70-99) 247 mg/dL (70-99) 249 mg/dL (70-99) Test 12/15/18 21:12 12/15/18 23:50 12/15/18 23:52 12/16/18 05:47 Glucose (Fingerstick) 207 mg/dL (70-99) 210 mg/dL (70-99) 103 mg/dL (70-99) Potassium Level 3.8 mmol/L (3.5-5.1) Magnesium Level 2.1 mg/dL (1.8-2.4) Test 12/16/18 08:46 12/16/18 12:45 12/16/18 14:00 12/16/18 16:57 Glucose (Fingerstick) 92 mg/dL (70-99) 166 mg/dL (70-99) 201 mg/dL (70-99) Hemoglobin A1c 9.2 % (4.8-5.6) Iron Level 38 ug/dL (65-175) Total Iron Binding Capacity 282 ug/dL (250-450) Iron Saturation 13 % (15-34) Test 12/16/18 21:12 12/17/18 01:34 12/17/18 03:30 12/17/18 07:33 Glucose (Fingerstick) 193 mg/dL (70-99) 146 mg/dL (70-99) 110 mg/dL (70-99) White Blood Count 9.8 x10^3/uL (4.0-11.0) Red Blood Count 3.72 x10^6/uL (4.30-5.70) Hemoglobin 11.2 g/dL (13.0-17.5) Hematocrit 34.5 % (39.0-53.0) Mean Corpuscular Volume 93 fL (79-100) Mean Corpuscular Hemoglobin 30 pg (25-35) Mean Corpuscular Hemoglobin Concent 32 g/dL (31-37) Red Cell Distribution Width 15.4 % (11.5-14.5) Platelet Count 202 x10^3/uL (140-400) Neutrophils (%) (Auto) 68 % (31-73) Lymphocytes (%) (Auto) 18 % (24-48) Monocytes (%) (Auto) 11 % (0-9) Eosinophils (%) (Auto) 3 % (0-3) Basophils (%) (Auto) 1 % (0-3) Neutrophils # (Auto) 6.7 x10^3uL (1.8-7.7) Lymphocytes # (Auto) 1.8 x10^3/uL (1.0-4.8) Monocytes # (Auto) 1.1 x10^3/uL (0.0-1.1) Eosinophils # (Auto) 0.3 x10^3/uL (0.0-0.7) Basophils # (Auto) 0.0 x10^3/uL (0.0-0.2) Sodium Level 143 mmol/L (136-145) Potassium Level 3.5 mmol/L (3.5-5.1) Chloride Level 104 mmol/L (98-107) Carbon Dioxide Level 30 mmol/L (21-32) Anion Gap 9 (6-14) Blood Urea Nitrogen 27 mg/dL (8-26) Creatinine 1.7 mg/dL (0.7-1.3) Estimated GFR (Cockcroft-Gault) 39.8 BUN/Creatinine Ratio 16 (6-20) Glucose Level 154 mg/dL (70-99) Calcium Level 9.0 mg/dL (8.5-10.1) Total Bilirubin 0.5 mg/dL (0.2-1.0) Aspartate Amino Transf (AST/SGOT) 42 U/L (15-37) Alanine Aminotransferase (ALT/SGPT) 26 U/L (16-63) Alkaline Phosphatase 51 U/L (46-116) Total Protein 7.3 g/dL (6.4-8.2) Albumin 2.9 g/dL (3.4-5.0) Albumin/Globulin Ratio 0.7 (1.0-1.7) Laboratory Tests Test 12/16/18 12:45 12/16/18 14:00 12/16/18 16:57 12/16/18 21:12 Glucose (Fingerstick) 166 mg/dL (70-99) 201 mg/dL (70-99) 193 mg/dL (70-99) Hemoglobin A1c 9.2 % (4.8-5.6) Iron Level 38 ug/dL (65-175) Total Iron Binding Capacity 282 ug/dL (250-450) Iron Saturation 13 % (15-34) Test 12/17/18 01:34 12/17/18 03:30 12/17/18 07:33 Glucose (Fingerstick) 146 mg/dL (70-99) 110 mg/dL (70-99) White Blood Count 9.8 x10^3/uL (4.0-11.0) Red Blood Count 3.72 x10^6/uL (4.30-5.70) Hemoglobin 11.2 g/dL (13.0-17.5) Hematocrit 34.5 % (39.0-53.0) Mean Corpuscular Volume 93 fL (79-100) Mean Corpuscular Hemoglobin 30 pg (25-35) Mean Corpuscular Hemoglobin Concent 32 g/dL (31-37) Red Cell Distribution Width 15.4 % (11.5-14.5) Platelet Count 202 x10^3/uL (140-400) Neutrophils (%) (Auto) 68 % (31-73) Lymphocytes (%) (Auto) 18 % (24-48) Monocytes (%) (Auto) 11 % (0-9) Eosinophils (%) (Auto) 3 % (0-3) Basophils (%) (Auto) 1 % (0-3) Neutrophils # (Auto) 6.7 x10^3uL (1.8-7.7) Lymphocytes # (Auto) 1.8 x10^3/uL (1.0-4.8) Monocytes # (Auto) 1.1 x10^3/uL (0.0-1.1) Eosinophils # (Auto) 0.3 x10^3/uL (0.0-0.7) Basophils # (Auto) 0.0 x10^3/uL (0.0-0.2) Sodium Level 143 mmol/L (136-145) Potassium Level 3.5 mmol/L (3.5-5.1) Chloride Level 104 mmol/L (98-107) Carbon Dioxide Level 30 mmol/L (21-32) Anion Gap 9 (6-14) Blood Urea Nitrogen 27 mg/dL (8-26) Creatinine 1.7 mg/dL (0.7-1.3) Estimated GFR (Cockcroft-Gault) 39.8 BUN/Creatinine Ratio 16 (6-20) Glucose Level 154 mg/dL (70-99) Calcium Level 9.0 mg/dL (8.5-10.1) Total Bilirubin 0.5 mg/dL (0.2-1.0) Aspartate Amino Transf (AST/SGOT) 42 U/L (15-37) Alanine Aminotransferase (ALT/SGPT) 26 U/L (16-63) Alkaline Phosphatase 51 U/L (46-116) Total Protein 7.3 g/dL (6.4-8.2) Albumin 2.9 g/dL (3.4-5.0) Albumin/Globulin Ratio 0.7 (1.0-1.7) Allergies Allergies Coded Allergies Type Severity Reaction Last Updated Verified Iodinated Contrast- Oral and IV Dye Allergy Intermediate Rash 07/19/16 Yes Disposition/Orders: Other (to snf bed) Patient Instructions d/c planning 32 min MEHRAN LEWIS MD Dec 17, 2018 09:56
[2018-12-17] MEDS ORDERED: DOCU50LI12 FT (10:07)
[2018-12-17] MEDS ORDERED: IPRA3AMP29 NEB (10:07)
[2018-12-17] MEDS ORDERED: INSU100I11 SQ (10:07)
[2018-12-17] MEDS ORDERED: LACT1CAP19 PO (10:07)
[2018-12-17] MEDS ORDERED: CARV3.1210 PO (10:07)
[2018-12-17] MEDS ORDERED: ACET650S FT (10:07)
--- NOTE | 2018-12-17 10:09 | SNU/HH DC ---
DISCHARGE ORDERS DISCHARGE INFORMATION: FINAL DIAGNOSIS Problems Medical Problems: (1) CHF (congestive heart failure) Status: Acute (2) Respiratory failure Status: Acute CONDITION ON DISCHARGE: Stable CODE STATUS: Code Status: Full JAIL: SNF STAY <30 DAYS: Yes HOSPICE: HOSPICE: No HOSPICE EVAL & TREAT: No LTAC: ADMIT TO LTAC: No POST DISCHARGE ORDERS: ACTIVITY ORDERS: Activity as tolerated WEIGHT BEARING STATUS: As tolerated DIET AFTER DISCHARGE: ADA CHECKS AFTER DISCHARGE: CHECKS AFTER DISCHARGE: Check blood press - daily, Check blood sugar, ac/hs FOLLOW-UP: PHYSICIAN FOLLOW-UP: SEE PCP MARY ADDITIONAL FOLLOW-UP: SEE CARDIOLOGY 1-2 WEEKS LAB ORDERS FOR FOLLOW-UP: CBC, BMP IN 4 DAYS TREATMENT/EQUIPMENT ORDERS: ADAPTIVE EQUIPMENT NEEDED: Four wheeled walker RESPIRATORY EQUIPMENT NEEDED: Oxygen Physical Therapy For: Evalulation/Treatment Occupational Therapy For: Evaluation/Treatment Speech Language Pathology For: Evaluation/Treatment DISCHARGE MEDICATIONS: Home Meds Reported Medications Sitagliptin Phos/Metformin Hcl (JANUMET 50-1,000 MG TABLET) 1 Each Tablet, 2 TAB PO QEVNG for diabetes, #60 TAB 5 Refills 12/13/18 Clopidogrel Bisulfate (CLOPIDOGREL) 75 Mg Tablet, 1 TAB PO DAILY, #90 TAB 1 Refill 12/06/17 Levothyroxine Sodium (LEVOTHYROXINE SODIUM) 200 Mcg Tablet, 1 TAB PO DAILY, #30 TAB 5 Refills 12/06/17 Lisinopril (LISINOPRIL) 40 Mg Tablet, 40 MG PO DAILY for FOR HYPERTENSION, #30 TAB 0 Refills 12/06/17 Potassium Chloride (KLOR-CON M20) 20 Meq Tab.er.prt, 20 MEQ PO DAILY, TAB.SR 12/06/17 Metformin Hcl (METFORMIN HCL ER) 1,000 Mg Tab.er.24, 1 TAB PO BID, #90 TAB 1 Refill 07/20/16 Nitroglycerin (NITROGLYCERIN SubLingual) 0.4 Mg Tab.subl, 0.4 MG SL PRN Q5MIN PRN for CHEST PAIN, BOTTLE 07/20/16 Glimepiride (GLIMEPIRIDE) 4 Mg Tablet, 1 TAB PO DAILY, #30 TAB 5 Refills 07/20/16 Insulin Glargine,Hum.rec.anlog (LANTUS SOLOSTAR) 100 Unit/1 Ml Insuln.pen, 70 UNIT SQ QHS, #15 ML 3 Refills 07/20/15 Pravastatin Sodium (PRAVASTATIN SODIUM) 40 Mg Tablet, 1 TAB PO QHS, #90 TAB 1 Refill 07/20/15 Amlodipine Besylate (AMLODIPINE BESYLATE) 10 Mg Tablet, 10 MG PO DAILY, TAB 07/20/15 Aspirin (ASPIR 81) 81 Mg Tablet.dr, 1 TAB PO DAILY, #30 TAB 5 Refills 07/20/15 Metoprolol Tartrate (METOPROLOL TARTRATE) 25 Mg Tablet, 1 TAB PO BID, #180 TAB 1 Refill 07/20/15 Furosemide (FUROSEMIDE) 40 Mg Tablet, 1 TAB PO DAILY, #30 TAB 5 Refills 07/20/15 MEHRAN LEWIS MD Dec 17, 2018 10:09
[2018-12-17] MEDS ORDERED: AMOX1TAB58 PO (10:11)
--- NOTE | 2018-12-17 10:16 | NUR ---
SS following up with discharge planning. Discharge orders received for [facility]. SS phoned and faxed discharge orders to [facility], ; fax [phone]. Pt will discharge today and go to [facility] at 1345 via [facility] transport, [phone]. Pt and pt's RN notified.
[2018-12-17 11:05] VITALS: BP 152/68
--- NOTE | 2018-12-17 11:20 | PDOC ---
PULMONARY PROGRESS NOTES Subjective extubated, on canula Vitals Vital Signs Date Time Temp Pulse Resp B/P (MAP) Pulse Ox O2 Delivery O2 Flow Rate FiO2 12/17/18 08:15 Nasal Cannula 3.0 12/17/18 06:56 98.6 76 24 139/72 (94) 95 98.6 General: Alert, No acute distress Lungs: Clear Cardiovascular: S1, S2 Abdomen: Soft, Other (obese) Extremities: Other (2+edema) Skin: Warm Labs Laboratory Tests Test 12/15/18 11:52 12/15/18 14:21 12/15/18 17:20 12/15/18 21:12 Glucose (Fingerstick) 331 mg/dL (70-99) 247 mg/dL (70-99) 249 mg/dL (70-99) 207 mg/dL (70-99) Test 12/15/18 23:50 12/15/18 23:52 12/16/18 05:47 12/16/18 08:46 Potassium Level 3.8 mmol/L (3.5-5.1) Magnesium Level 2.1 mg/dL (1.8-2.4) Glucose (Fingerstick) 210 mg/dL (70-99) 103 mg/dL (70-99) 92 mg/dL (70-99) Test 12/16/18 12:45 12/16/18 14:00 12/16/18 16:57 12/16/18 21:12 Glucose (Fingerstick) 166 mg/dL (70-99) 201 mg/dL (70-99) 193 mg/dL (70-99) Hemoglobin A1c 9.2 % (4.8-5.6) Iron Level 38 ug/dL (65-175) Total Iron Binding Capacity 282 ug/dL (250-450) Iron Saturation 13 % (15-34) Test 12/17/18 01:34 12/17/18 03:30 12/17/18 07:33 Glucose (Fingerstick) 146 mg/dL (70-99) 110 mg/dL (70-99) White Blood Count 9.8 x10^3/uL (4.0-11.0) Red Blood Count 3.72 x10^6/uL (4.30-5.70) Hemoglobin 11.2 g/dL (13.0-17.5) Hematocrit 34.5 % (39.0-53.0) Mean Corpuscular Volume 93 fL (79-100) Mean Corpuscular Hemoglobin 30 pg (25-35) Mean Corpuscular Hemoglobin Concent 32 g/dL (31-37) Red Cell Distribution Width 15.4 % (11.5-14.5) Platelet Count 202 x10^3/uL (140-400) Neutrophils (%) (Auto) 68 % (31-73) Lymphocytes (%) (Auto) 18 % (24-48) Monocytes (%) (Auto) 11 % (0-9) Eosinophils (%) (Auto) 3 % (0-3) Basophils (%) (Auto) 1 % (0-3) Neutrophils # (Auto) 6.7 x10^3uL (1.8-7.7) Lymphocytes # (Auto) 1.8 x10^3/uL (1.0-4.8) Monocytes # (Auto) 1.1 x10^3/uL (0.0-1.1) Eosinophils # (Auto) 0.3 x10^3/uL (0.0-0.7) Basophils # (Auto) 0.0 x10^3/uL (0.0-0.2) Sodium Level 143 mmol/L (136-145) Potassium Level 3.5 mmol/L (3.5-5.1) Chloride Level 104 mmol/L (98-107) Carbon Dioxide Level 30 mmol/L (21-32) Anion Gap 9 (6-14) Blood Urea Nitrogen 27 mg/dL (8-26) Creatinine 1.7 mg/dL (0.7-1.3) Estimated GFR (Cockcroft-Gault) 39.8 BUN/Creatinine Ratio 16 (6-20) Glucose Level 154 mg/dL (70-99) Calcium Level 9.0 mg/dL (8.5-10.1) Total Bilirubin 0.5 mg/dL (0.2-1.0) Aspartate Amino Transf (AST/SGOT) 42 U/L (15-37) Alanine Aminotransferase (ALT/SGPT) 26 U/L (16-63) Alkaline Phosphatase 51 U/L (46-116) Total Protein 7.3 g/dL (6.4-8.2) Albumin 2.9 g/dL (3.4-5.0) Albumin/Globulin Ratio 0.7 (1.0-1.7) Laboratory Tests Test 12/16/18 12:45 12/16/18 14:00 12/16/18 16:57 12/16/18 21:12 Glucose (Fingerstick) 166 mg/dL (70-99) 201 mg/dL (70-99) 193 mg/dL (70-99) Hemoglobin A1c 9.2 % (4.8-5.6) Iron Level 38 ug/dL (65-175) Total Iron Binding Capacity 282 ug/dL (250-450) Iron Saturation 13 % (15-34) Test 12/17/18 01:34 12/17/18 03:30 12/17/18 07:33 Glucose (Fingerstick) 146 mg/dL (70-99) 110 mg/dL (70-99) White Blood Count 9.8 x10^3/uL (4.0-11.0) Red Blood Count 3.72 x10^6/uL (4.30-5.70) Hemoglobin 11.2 g/dL (13.0-17.5) Hematocrit 34.5 % (39.0-53.0) Mean Corpuscular Volume 93 fL (79-100) Mean Corpuscular Hemoglobin 30 pg (25-35) Mean Corpuscular Hemoglobin Concent 32 g/dL (31-37) Red Cell Distribution Width 15.4 % (11.5-14.5) Platelet Count 202 x10^3/uL (140-400) Neutrophils (%) (Auto) 68 % (31-73) Lymphocytes (%) (Auto) 18 % (24-48) Monocytes (%) (Auto) 11 % (0-9) Eosinophils (%) (Auto) 3 % (0-3) Basophils (%) (Auto) 1 % (0-3) Neutrophils # (Auto) 6.7 x10^3uL (1.8-7.7) Lymphocytes # (Auto) 1.8 x10^3/uL (1.0-4.8) Monocytes # (Auto) 1.1 x10^3/uL (0.0-1.1) Eosinophils # (Auto) 0.3 x10^3/uL (0.0-0.7) Basophils # (Auto) 0.0 x10^3/uL (0.0-0.2) Sodium Level 143 mmol/L (136-145) Potassium Level 3.5 mmol/L (3.5-5.1) Chloride Level 104 mmol/L (98-107) Carbon Dioxide Level 30 mmol/L (21-32) Anion Gap 9 (6-14) Blood Urea Nitrogen 27 mg/dL (8-26) Creatinine 1.7 mg/dL (0.7-1.3) Estimated GFR (Cockcroft-Gault) 39.8 BUN/Creatinine Ratio 16 (6-20) Glucose Level 154 mg/dL (70-99) Calcium Level 9.0 mg/dL (8.5-10.1) Total Bilirubin 0.5 mg/dL (0.2-1.0) Aspartate Amino Transf (AST/SGOT) 42 U/L (15-37) Alanine Aminotransferase (ALT/SGPT) 26 U/L (16-63) Alkaline Phosphatase 51 U/L (46-116) Total Protein 7.3 g/dL (6.4-8.2) Albumin 2.9 g/dL (3.4-5.0) Albumin/Globulin Ratio 0.7 (1.0-1.7) Medications Active Scripts Medications Dose Route/Sig Max Daily Dose Days Date Category Sepumet 50-1,000 Mg Tablet (Sitagliptin Phos/Metformin Hcl) 1 Each Tablet 2 Tab PO QEVNG 12/13/18 Reported Clopidogrel (Clopidogrel Bisulfate) 75 Mg Tablet 1 Tab PO DAILY 12/06/17 Reported Levothyroxine Sodium 200 Mcg Tablet 1 Tab PO DAILY 12/06/17 Reported Lisinopril 40 Mg Tablet 40 Mg PO DAILY 12/06/17 Reported Klor-Con M20 (Potassium Chloride) 20 Meq Tab.er.prt 20 Meq PO DAILY 12/06/17 Reported Metformin Hcl Er (Metformin Hcl) 1,000 Mg Tab.er.24 1 Tab PO BID 07/20/16 Reported NITROGLYCERIN SubLingual (Nitroglycerin) 0.4 Mg Tab.subl 0.4 Mg SL PRN Q5MIN PRN 07/20/16 Reported Glimepiride 4 Mg Tablet 1 Tab PO DAILY 07/20/16 Reported Lantus Solostar (Insulin Glargine,Hum.rec.anlog) 100 Unit/1 Ml Insuln.pen 70 Unit SQ QHS 07/20/15 Reported Pravastatin Sodium 40 Mg Tablet 1 Tab PO QHS 07/20/15 Reported Amlodipine Besylate 10 Mg Tablet 10 Mg PO DAILY 07/20/15 Reported Aspir 81 (Aspirin) 81 Mg Tablet.dr 1 Tab PO DAILY 07/20/15 Reported Metoprolol Tartrate 25 Mg Tablet 1 Tab PO BID 07/20/15 Reported Furosemide 40 Mg Tablet 1 Tab PO DAILY 07/20/15 Reported Comments CXR 12/16 IMPROVING chf/ L BASE ATELECTASIS SPUTUM CULTURE-LC Final Final report SPUTUM CULT RES 1 Final Comment Routine respiratory epi Performed at: DA - [facility] [address], [place], [place] [id number] Relish Blender: HILDA Yadav MD, Phone: [phone] Impression . 1. Acute hypoxic and hypercapnic respiratory failure secondary to acute on chronic systolic heart failure. EXTUBATED 12/15. ON CANULA 2. The patient with known cardiomyopathy with an EF of 40% and a recent cardiac catheterization suggesting evidence of high filling pressures with increased left ventricular end diastolic pressure of 21. Now comes in with worsening congestive heart failure. IMPROVED. 3. Morbid obesity and suspected obesity hypoventilation syndrome. 4. Suspected underlying chronic obstructive pulmonary disease. 5. Renal insufficiency. 6. Encephalopathy, toxic and metabolic. 7. Abnormal chest x-ray consistent with congestive heart failure./ LLL atelectasis/ low grade fever/? pneumonia, improving Plan . 1. canula 2. Diuresis. 3. repeat cath findings reviewed 4. Bronchodilators. 5. DVT prophylaxis. 6. Stress ulcer prophylaxis. 7. Follow up chest x-rays.as needed 8. Follow renal function. 9. sputum wit hroutine epi. robert Zosyn. change to PO Augmentin d/w RN/ ok with dc plans CATIE URIBE MD Dec 17, 2018 11:20
[2018-12-17] MEDS ORDERED: AMOX1TAB10 PO (11:50)
[2018-12-17] MEDS ORDERED: AMOXICILLIN/K CLAV 500/125MG TABLET. PO SCH (12:00)
--- NOTE | 2018-12-17 12:14 | SNU/HH DC ---
DISCHARGE ORDERS DISCHARGE INFORMATION: FINAL DIAGNOSIS Problems Medical Problems: (1) CHF (congestive heart failure) Status: Acute (2) Respiratory failure Status: Acute CONDITION ON DISCHARGE: Stable CODE STATUS: Code Status: Full FPC: SNF STAY <30 DAYS: Yes HOSPICE: HOSPICE: No HOSPICE EVAL & TREAT: No LTAC: ADMIT TO LTAC: No POST DISCHARGE ORDERS: ACTIVITY ORDERS: Activity as tolerated WEIGHT BEARING STATUS: As tolerated DIET AFTER DISCHARGE: ADA CHECKS AFTER DISCHARGE: CHECKS AFTER DISCHARGE: Check blood press - daily, Check blood sugar, ac/hs, Weigh Yourself Daily FOLLOW-UP: PHYSICIAN FOLLOW-UP: SEE PCP MARY ADDITIONAL FOLLOW-UP: SEE CARDIOLOGY 1-2 WEEKS LAB ORDERS FOR FOLLOW-UP: CBC, BMP IN 4 DAYS TREATMENT/EQUIPMENT ORDERS: ADAPTIVE EQUIPMENT NEEDED: None RESPIRATORY EQUIPMENT NEEDED: Oxygen Physical Therapy For: Evalulation/Treatment Occupational Therapy For: Evaluation/Treatment Speech Language Pathology For: Evaluation/Treatment DISCHARGE MEDICATIONS: Home Meds Active Scripts Amoxicillin/Potassium Clav (AMOX TR-K CLV 500-125 MG TAB) 1 Each Tablet, 1 TAB PO BID for INFECTION for 7 Days, #14 TAB Prov:MEHRAN LEWIS MD 12/17/18 Insulin Lispro (HUMALOG) 100 Unit/1 Ml Insuln.pen, 0 UNITS SQ TIDBFRMEAL for GLUCOSE for 14 Days, #1 EACH Prov:MEHRAN LEWIS MD 12/17/18 Lactobacillus Rhamnosus Gg (CULTURELLE) 1 Each Cap.sprink, 1 CAP PO BID for SUPPLEMENT for 30 Days, #60 CAP Prov:MEHRAN LEWIS MD 12/17/18 Docusate Sodium (DOCU LIQUID) 50 Mg/5 Ml Liquid, 100 MG FT BID for PREVENT CONSTIPATION for 30 Days, #60 LIQUID Prov:MEHRAN LEWIS MD 12/17/18 Acetaminophen (ACETAMINOPHEN ORAL LIQUID ) 650 Mg/20.3 Ml Solution, 650 MG FT PRN Q6HRS PRN for Headaches, Temp > 101.5' for 30 Days, #120 MISC Prov:MEHRAN LEWIS MD 12/17/18 Carvedilol (CARVEDILOL ) 3.125 Mg Tablet, 3.125 MG PO BIDWMEALS for HEART for 30 Days, #60 TAB Prov:MEHRAN LEWIS MD 12/17/18 Ipratropium/Albuterol Sulfate (DUONEB 0.5-3(2.5) MG/3 ML) 3 Ml Ampul.neb, 3 ML NEB RTQID for COPD for 30 Days, #120 EACH Prov:MEHRAN LEWIS MD 12/17/18 Reported Medications Clopidogrel Bisulfate (CLOPIDOGREL) 75 Mg Tablet, 1 TAB PO DAILY, #90 TAB 1 Refill 12/06/17 Levothyroxine Sodium (LEVOTHYROXINE SODIUM) 200 Mcg Tablet, 1 TAB PO DAILY, #30 TAB 5 Refills 12/06/17 Lisinopril (LISINOPRIL) 40 Mg Tablet, 40 MG PO DAILY for FOR HYPERTENSION, #30 TAB 0 Refills 12/06/17 Potassium Chloride (KLOR-CON M20) 20 Meq Tab.er.prt, 20 MEQ PO DAILY, TAB.SR 12/06/17 Nitroglycerin (NITROGLYCERIN SubLingual) 0.4 Mg Tab.subl, 0.4 MG SL PRN Q5MIN PRN for CHEST PAIN, BOTTLE 07/20/16 Insulin Glargine,Hum.rec.anlog (LANTUS SOLOSTAR) 100 Unit/1 Ml Insuln.pen, 70 UNIT SQ QHS, #15 ML 3 Refills 07/20/15 Pravastatin Sodium (PRAVASTATIN SODIUM) 40 Mg Tablet, 1 TAB PO QHS, #90 TAB 1 Refill 07/20/15 Amlodipine Besylate (AMLODIPINE BESYLATE) 10 Mg Tablet, 10 MG PO DAILY, TAB 07/20/15 Aspirin (ASPIR 81) 81 Mg Tablet., 1 TAB PO DAILY, #30 TAB 5 Refills 07/20/15 Furosemide (FUROSEMIDE) 40 Mg Tablet, 1 TAB PO DAILY, #30 TAB 5 Refills 07/20/15 Discontinued Reported Medications Sitagliptin Phos/Metformin Hcl (JANUMET 50-1,000 MG TABLET) 1 Each Tablet, 2 TAB PO QEVNG for diabetes, #60 TAB 5 Refills 12/13/18 Metformin Hcl (METFORMIN HCL ER) 1,000 Mg Tab.er.24, 1 TAB PO BID, #90 TAB 1 Refill 07/20/16 Glimepiride (GLIMEPIRIDE) 4 Mg Tablet, 1 TAB PO DAILY, #30 TAB 5 Refills 07/20/16 Metoprolol Tartrate (METOPROLOL TARTRATE) 25 Mg Tablet, 1 TAB PO BID, #180 TAB 1 Refill 07/20/15 MEHRAN LEWIS MD Dec 17, 2018 12:14
[2018-12-17] MEDS: LISINOPRIL 20 MG TABLET FT SCH (12:28)
[2018-12-17] MEDS: FUROSEMIDE 40 MG/4 ML VIAL. IVP SCH (12:29)
[2018-12-17] MEDS: POTASSIUM CHLORIDE 20 MEQ/15 ML ORAL LIQUID. PEG SCH (12:29)
[2018-12-17] MEDS: LACTOBACILLUS RHAMNOSUS GG 1 CAPSULE. PO SCH (12:29)
[2018-12-17] MEDS: CLOPIDOGREL BISULFATE 75 MG TABLET FT SCH (12:29)
[2018-12-17] MEDS: ASPIRIN CHEWABLE 81 MG TABLET. FT SCH (12:29)
[2018-12-17] MEDS: amLODIPine BESYLATE 10 MG TABLET FT SCH (12:29)
[2018-12-17 12:32] VITALS: BP 152/68
[2018-12-17] MEDS: FAMOTIDINE 20 MG/2 ML VIAL IVP SCH (12:32)
[2018-12-17] MEDS: CARVEDILOL 3.125 MG TABLET. PO SCH (12:32)
[2018-12-17] MEDS: ENOXAPARIN 40 MG/0.4 ML SYRINGE. SQ SCH (12:33)
--- NOTE | 2018-12-17 14:08 | NUR ---
Discharge Note: AARON GOMEZ Discharge instructions and discharge home medications reviewed with Other facility Sandrine Espinoza and a copy given. All questions have been answered and understanding verbalized. The following instructions and handouts were given: Respiratory Failure Discontinued lines and drains: Peripheral IV intact. [facility] via Wheelchair
--- NOTE | 2018-12-17 14:20 | PDOC ---
CARDIO Progress Notes Date and Time Date of Service 12/17/18 Time of Evaluation 1145 Subjective Subjective: No Chest Pain, No shortness of breath, No Palpitations Vitals Vitals Vital Signs Date Time Temp Pulse Resp B/P (MAP) Pulse Ox O2 Delivery O2 Flow Rate FiO2 12/17/18 12:32 85 152/68 12/17/18 11:05 98.0 12 91 Nasal Cannula 3.0 98.0 Weight Weight [ ] Input and Output Intake and Output Intake and Output 12/17/18 07:00 Intake Total 1540 ml Output Total 1425 ml Balance 115 ml Intake Oral 1540 ml Output Urine Total 1425 ml # Bowel Movements 1 Laboratory Labs Laboratory Tests Test 12/16/18 16:57 12/16/18 21:12 12/17/18 01:34 12/17/18 03:30 Glucose (Fingerstick) 201 mg/dL (70-99) 193 mg/dL (70-99) 146 mg/dL (70-99) White Blood Count 9.8 x10^3/uL (4.0-11.0) Red Blood Count 3.72 x10^6/uL (4.30-5.70) Hemoglobin 11.2 g/dL (13.0-17.5) Hematocrit 34.5 % (39.0-53.0) Mean Corpuscular Volume 93 fL (79-100) Mean Corpuscular Hemoglobin 30 pg (25-35) Mean Corpuscular Hemoglobin Concent 32 g/dL (31-37) Red Cell Distribution Width 15.4 % (11.5-14.5) Platelet Count 202 x10^3/uL (140-400) Neutrophils (%) (Auto) 68 % (31-73) Lymphocytes (%) (Auto) 18 % (24-48) Monocytes (%) (Auto) 11 % (0-9) Eosinophils (%) (Auto) 3 % (0-3) Basophils (%) (Auto) 1 % (0-3) Neutrophils # (Auto) 6.7 x10^3uL (1.8-7.7) Lymphocytes # (Auto) 1.8 x10^3/uL (1.0-4.8) Monocytes # (Auto) 1.1 x10^3/uL (0.0-1.1) Eosinophils # (Auto) 0.3 x10^3/uL (0.0-0.7) Basophils # (Auto) 0.0 x10^3/uL (0.0-0.2) Sodium Level 143 mmol/L (136-145) Potassium Level 3.5 mmol/L (3.5-5.1) Chloride Level 104 mmol/L (98-107) Carbon Dioxide Level 30 mmol/L (21-32) Anion Gap 9 (6-14) Blood Urea Nitrogen 27 mg/dL (8-26) Creatinine 1.7 mg/dL (0.7-1.3) Estimated GFR (Cockcroft-Gault) 39.8 BUN/Creatinine Ratio 16 (6-20) Glucose Level 154 mg/dL (70-99) Calcium Level 9.0 mg/dL (8.5-10.1) Total Bilirubin 0.5 mg/dL (0.2-1.0) Aspartate Amino Transf (AST/SGOT) 42 U/L (15-37) Alanine Aminotransferase (ALT/SGPT) 26 U/L (16-63) Alkaline Phosphatase 51 U/L (46-116) Total Protein 7.3 g/dL (6.4-8.2) Albumin 2.9 g/dL (3.4-5.0) Albumin/Globulin Ratio 0.7 (1.0-1.7) Test 12/17/18 07:33 12/17/18 12:07 Glucose (Fingerstick) 110 mg/dL (70-99) 214 mg/dL (70-99) Microbiology Micro Microbiology 12/13/18 Blood Culture - Preliminary, Resulted NO GROWTH AFTER 3 DAYS 12/14/18 - Final, Complete 12/14/18 - Final, Complete 12/14/18 - Final, Complete 12/14/18 - Final, Complete 12/14/18 - Final, Complete 12/14/18 - Final, Complete 12/14/18 Gram Stain Evaluation - Final, Complete 12/14/18 Sputum Culture - Final, Complete 12/14/18 Sputum Result 1 - Final, Complete Physical Exam HEENT: Neck Supple W Full Motion Chest: Symmetric LUNGS: Other (diminished bases) Heart: RRR (SR with PVCs), no murmurs, other (S4) Abdomen: Soft N/T Extremities: No Calf Tenderness, Other (1+ bilateral LE pitting edema) Neurology: alert, oriented, follow commands Assessment Assessment 1. Acute on chronic respiratory failure with systolic CHF. Doing well. Tolerating increased activity. 2. Acute on chronic systolic CHF: appears compensated 3. ICM; EF 40-45%. 4. CAD: LHC unchanged findings by comparison. LCx stent patent 5. Hypertension 6. Hyperlipidemia 7. PAFIB: SR with PVCs 8. Diabetes, II 9. WILLA; Cr stable with diuresis Recommendations Convert diuresis to oral Plan for outpatient event monitor following discharge from rehab Supportive care SIMON PATEL APRN Dec 17, 2018 14:20
== END 2018-12-17 13:55 | DRG 208 ==
LOC: ER 12:49 → 1 WEST ICU 13:50 → 2 NORTH 12-16 16:48
PROVIDERS: ADMIT Internal Medicine; ATTEND Internal Medicine
PROC: 5A1945Z Respiratory Ventilation, 24-96 Consecutive Hours (ICD-10-PCS; 2018-12-13)
PROC: 5A09357 Assistance with Respiratory Ventilation, Less than 24 Consecutive Hours, Continuous Positive Airway Pressure (ICD-10-PCS; 2018-12-13)
PROC: 0BH17EZ Insertion of Endotracheal Airway into Trachea, Via Natural or Artificial Opening (ICD-10-PCS; 2018-12-13)
PROC: B2151ZZ Fluoroscopy of Left Heart using Low Osmolar Contrast (ICD-10-PCS; principal; 2018-12-15)
PROC: 4A023N7 Measurement of Cardiac Sampling and Pressure, Left Heart, Percutaneous Approach (ICD-10-PCS; 2018-12-15)
PROC: B2111ZZ Fluoroscopy of Multiple Coronary Arteries using Low Osmolar Contrast (ICD-10-PCS; 2018-12-15)
DX: J96.21 Acute and chronic respiratory failure with hypoxia (principal); G92 Toxic encephalopathy; I50.43 Acute on chronic combined systolic (congestive) and diastolic (congestive) heart failure; N17.9 Acute kidney failure, unspecified; I13.0 Hypertensive heart and chronic kidney disease with heart failure and stage 1 through stage 4 chronic kidney disease, or unspecified chronic kidney disease; E66.2 Morbid (severe) obesity with alveolar hypoventilation; J96.22 Acute and chronic respiratory failure with hypercapnia; J44.9 Chronic obstructive pulmonary disease, unspecified; E11.22 Type 2 diabetes mellitus with diabetic chronic kidney disease; E11.42 Type 2 diabetes mellitus with diabetic polyneuropathy; D64.9 Anemia, unspecified; E78.00 Pure hypercholesterolemia, unspecified; I25.2 Old myocardial infarction; E03.9 Hypothyroidism, unspecified; I48.0 Paroxysmal atrial fibrillation; K21.9 Gastro-esophageal reflux disease without esophagitis; N18.9 Chronic kidney disease, unspecified; E78.5 Hyperlipidemia, unspecified; I25.10 Atherosclerotic heart disease of native coronary artery without angina pectoris; I44.7 Left bundle-branch block, unspecified; M19.90 Unspecified osteoarthritis, unspecified site; I25.5 Ischemic cardiomyopathy; K80.20 Calculus of gallbladder without cholecystitis without obstruction; D35.01 Benign neoplasm of right adrenal gland; Z86.73 Personal history of transient ischemic attack (TIA), and cerebral infarction without residual deficits; Z95.5 Presence of coronary angioplasty implant and graft; Z91.041 Radiographic dye allergy status; Z68.38 Body mass index [BMI] 38.0-38.9, adult; Z79.4 Long term (current) use of insulin; Z79.899 Other long term (current) drug therapy; Z87.891 Personal history of nicotine dependence; Z82.49 Family history of ischemic heart disease and other diseases of the circulatory system
CPT/HCPCS: 36415; 36600; 71045; 76770; 80047; 80048; 80053; 80061; 81001; 82553; 82805; 82962; 83036; 83540; 83550; 83735; 83880; 84100; 84132; 84145; 84443; 84484; 85025; 85027; 85520; 85610; 85730; 87040; 87070; 87205; 87641; 93005; 93306; 93458; 94003; 94640; 99152; 99153; C1769; C1892; J0171; J1200; J1644; J1650; J1815; J1940; J2543; J2704; J2930; J3010; J3490; J7620; Q9967; 97530; 97535

== ENCOUNTER 2019-01-21 18:32 | Emergency (ER) | payer MEDICARE ==
[~2019-01-21] VITALS: Ht 177.8 cm; Wt 120.2 kg
[~2019-01-21 18:32] MED LIST changes: +ACET650S FT; +AMOX1TAB10 PO; +AMOX1TAB58 PO; +CARV3.1210 PO; +DOCU50LI12 FT; -EPINEPHrine SYRINGE 1 MG/10 ML SYRINGE ONE; +INSU100I11 SQ; +IPRA3AMP29 NEB; +LACT1CAP19 PO; +SITA1TAB11 PO
[2019-01-21 19:19] LABS: BASO % 1 % (0-3); EOS # 0.2 x10^3/uL (0.0-0.7); EOS % 3 % (0-3); HEMATOCRIT 34.8 % (39.0-53.0); HEMOGLOBIN 11.5 g/dL (13.0-17.5); LYMPH # 2.2 x10^3/uL (1.0-4.8); LYMPH % 36 % (24-48); MEAN CORPUSCULAR HEMOGLOBIN 30 pg (25-35); MEAN CORPUSCULAR HGB CONC 33 g/dL (31-37); MEAN CORPUSCULAR VOLUME 91 fL (79-100); MONO # 0.7 x10^3/uL (0.0-1.1); MONO % 12 % (0-9); NEUT % 48 % (31-73); PLATELET COUNT 186 x10^3/uL (140-400); RED BLOOD COUNT 3.85 x10^6/uL (4.30-5.70); WHITE BLOOD COUNT 6.1 x10^3/uL (4.0-11.0)
[2019-01-21 19:25] LABS: CALCIUM 9.5 mg/dL (8.5-10.1); CREATININE 1.9 mg/dL (0.7-1.3); POTASSIUM 4.7 mmol/L (3.5-5.1)
[2019-01-21 19:31] LABS: ALBUMIN 3.7 g/dL (3.4-5.0); ALBUMIN/GLOBULIN RATIO 0.9 (1.0-1.7); TOTAL BILIRUBIN 0.3 mg/dL (0.2-1.0); TOTAL PROTEIN 7.8 g/dL (6.4-8.2)
[2019-01-21 19:37] LABS: BILIRUBIN,URINE NEGATIVE (NEG); CLARITY,URINE CLEAR; COLOR,URINE YELLOW; NITRITE,URINE NEGATIVE (NEG); PROTEIN,URINE 30 mg/dL (NEG-TRACE); UROBILINOGEN,URINE 0.2 mg/dL (0.2 mg/dL)
[2019-01-21] MEDS ORDERED: INSULIN REGULAR 100 UNIT/ML 3ML VIAL. IV ONE (19:45)
[2019-01-21 19:48] LABS: HYALINE CASTS, URINE MODERATE /HPF; SQUAMOUS EPITHELIAL CELL,UR OCC /LPF
[2019-01-21 19:49] LABS: BACTERIA,URINE 0 /HPF (0-FEW); WBC,URINE 0 /HPF (0-4)
--- NOTE | 2019-01-21 20:26 | PHYS DOC ---
Past Medical History Past Medical History: CHF, CVA, Diabetes-Type II, High Cholesterol, Heart Disease, Hypertension, Hypothyroid, SC, Other Additional Past Medical Histor: lower ext swelling, short term memory loss Past Surgical History: Other Additional Past Surgical Histo: carotidendarterecomty, cardiac stent Alcohol Use: Rarely Drug Use: None Adult General Chief Complaint Chief Complaint: HYPERGLYCEMIA HPI HPI Patient is a 73 year old male patient with history of diabetes mellitus who presents with pinning of high blood sugar. Patient states he takes 70 units of Lantus every night but did not have fast acting insulin until today and his blood sugar was 422 and called his doctor office without following decided to come to ER. Patient denies any symptoms. Review of Systems Review of Systems Constitutional: Denies fever or chills [] Eyes: Denies change in visual acuity, redness, or eye pain [] HENT: Denies nasal congestion or sore throat [] Respiratory: Denies cough or shortness of breath [] Cardiovascular: No additional information not addressed in HPI [] GI: Denies abdominal pain, nausea, vomiting, bloody stools or diarrhea [] : Denies dysuria or hematuria [] Musculoskeletal: Denies back pain or joint pain [] Integument: Denies rash or skin lesions [] Neurologic: Denies headache, focal weakness or sensory changes [] Endocrine: Denies polyuria or polydipsia [] All other systems were reviewed and found to be within normal limits, except as documented in this note. Current Medications Current Medications Current Medications Medications (Trade) Dose Ordered Sig/Nafisa Start Time Stop Time Status Last Admin Dose Admin Insulin Human Regular (HumuLIN R VIAL) 8 unit 1X ONCE 01/21/19 19:45 01/21/19 19:46 DC 01/21/19 19:24 8 UNIT Allergies Allergies Allergies Coded Allergies Type Severity Reaction Last Updated Verified Iodinated Contrast- Oral and IV Dye Allergy Intermediate Rash 07/19/16 Yes Physical Exam Physical Exam Constitutional: Well developed, well nourished, no acute distress, non-toxic appearance. [] HENT: Normocephalic, atraumatic, oropharynx moist, no oral exudates, nose normal. [] Eyes: PERRLA, EOMI, conjunctiva normal, no discharge. [] Neck: Normal range of motion, no tenderness, supple, no stridor. [] Cardiovascular:Heart rate regular rhythm, no murmur [] Lungs & Thorax: Bilateral breath sounds clear to auscultation [] Abdomen: Bowel sounds normal, soft, no tenderness, no masses, no pulsatile masses. [] Skin: Warm, dry, no erythema, no rash. [] Back: No tenderness, no CVA tenderness. [] Extremities: No tenderness, no cyanosis, no clubbing, ROM intact, no edema. [] Neurologic: Alert and oriented X 3, normal motor function, normal sensory fun ction, no focal deficits noted. [] Psychologic: Affect normal, judgement normal, mood normal. [] Current Patient Data Vital Signs Vital Signs Date Time Temp Pulse Resp B/P (MAP) Pulse Ox O2 Delivery O2 Flow Rate FiO2 01/21/19 20:30 68 17 130/95 (107) 98 Room Air 01/21/19 19:05 98.0 98.0 Lab Values Laboratory Tests Test 01/21/19 19:04 01/21/19 19:08 01/21/19 20:03 Glucose (Fingerstick) 343 mg/dL (70-99) H 169 mg/dL (70-99) H White Blood Count 6.1 x10^3/uL (4.0-11.0) Red Blood Count 3.85 x10^6/uL (4.30-5.70) L Hemoglobin 11.5 g/dL (13.0-17.5) L Hematocrit 34.8 % (39.0-53.0) L Mean Corpuscular Volume 91 fL (79-100) Mean Corpuscular Hemoglobin 30 pg (25-35) Mean Corpuscular Hemoglobin Concent 33 g/dL (31-37) Red Cell Distribution Width 15.0 % (11.5-14.5) H Platelet Count 186 x10^3/uL (140-400) Neutrophils (%) (Auto) 48 % (31-73) Lymphocytes (%) (Auto) 36 % (24-48) Monocytes (%) (Auto) 12 % (0-9) H Eosinophils (%) (Auto) 3 % (0-3) Basophils (%) (Auto) 1 % (0-3) Neutrophils # (Auto) 3.0 x10^3uL (1.8-7.7) Lymphocytes # (Auto) 2.2 x10^3/uL (1.0-4.8) Monocytes # (Auto) 0.7 x10^3/uL (0.0-1.1) Eosinophils # (Auto) 0.2 x10^3/uL (0.0-0.7) Basophils # (Auto) 0.0 x10^3/uL (0.0-0.2) Urine Collection Type Unknown Urine Color Yellow Urine Clarity Clear Urine pH 5.[address] 1.015 Urine Protein 30 mg/dL (NEG-TRACE) Urine Glucose (UA) 500 mg/dL (NEG) Urine Ketones (Stick) Negative mg/dL (NEG) Urine Blood Negative (NEG) Urine Nitrite Negative (NEG) Urine Bilirubin Negative (NEG) Urine Urobilinogen Dipstick 0.2 mg/dL (0.2 mg/dL) Urine Leukocyte Esterase Negative (NEG) Urine RBC 1-2 /HPF (0-2) Urine WBC 0 /HPF (0-4) Urine Squamous Epithelial Cells Occ /LPF Urine Bacteria 0 /HPF (0-FEW) Urine Hyaline Casts Moderate /HPF Urine Mucus Slight /LPF Sodium Level 133 mmol/L (136-145) L Potassium Level 4.7 mmol/L (3.5-5.1) Chloride Level 97 mmol/L (98-107) L Carbon Dioxide Level 29 mmol/L (21-32) Anion Gap 7 (6-14) Blood Urea Nitrogen 33 mg/dL (8-26) H Creatinine 1.9 mg/dL (0.7-1.3) H Estimated GFR (Cockcroft-Gault) 35.0 BUN/Creatinine Ratio 17 (6-20) Glucose Level 355 mg/dL (70-99) H Calcium Level 9.5 mg/dL (8.5-10.1) Total Bilirubin 0.3 mg/dL (0.2-1.0) Aspartate Amino Transferase (AST) 21 U/L (15-37) Alanine Aminotransferase (ALT) 24 U/L (16-63) Alkaline Phosphatase 68 U/L (46-116) Total Protein 7.8 g/dL (6.4-8.2) Albumin 3.7 g/dL (3.4-5.0) Albumin/Globulin Ratio 0.9 (1.0-1.7) L Laboratory Tests 01/21/19 19:08 Laboratory Tests 01/21/19 19:08 EKG EKG [] Radiology/Procedures Radiology/Procedures [] Course & Med Decision Making Course & Med Decision Making Pertinent Labs reviewed. (See chart for details) Patient in ER showed 73-year-old male patient with elevation of blood sugar. Patient treated with insulin IV and blood sugar gradually dropped from 350 to 169. Patient was advised to continue his Lantus and start NovoLog and follow up with diabetic diet and his primary care physician. Dragon Disclaimer Dragon Disclaimer This electronic medical record was generated, in whole or in part, using a voice recognition dictation system. Departure Departure Impression: Primary Impression: Hyperglycemia Additional Impressions: Uncontrolled diabetes mellitus Renal insufficiency Anemia Disposition: HOME, SELF-CARE Condition: IMPROVED Referrals: UNKNOWN PCP NAME (PCP) Patient Instructions: 1800 Calorie Diet for Diabetes Meal Planning, Diabetes Meal Planning Guide, Hyperglycemia Additional Instructions: Continue Lantus and take fast acting insulin as instructed Follow-up with your primary care physician in 2-3 days Return to ER if not getting better Problem Qualifiers Additional Impressions: Uncontrolled diabetes mellitus Diabetes mellitus type: type 2 Glycemic state: with hyperglycemia Qualified Codes: E11.65 - Type 2 diabetes mellitus with hyperglycemia Anemia Anemia type: unspecified type Qualified Codes: D64.9 - Anemia, unspecified LIZET MURPHY MD Jan 21, 2019 20:26
[2019-01-21 20:30] VITALS: BP 130/95
== END 2019-01-21 20:40 | disposition home or self-care (01) ==
LOC: ER 18:32
DX: E11.65 Type 2 diabetes mellitus with hyperglycemia (principal); D64.9 Anemia, unspecified; N28.9 Disorder of kidney and ureter, unspecified; I11.0 Hypertensive heart disease with heart failure; I50.9 Heart failure, unspecified; E78.00 Pure hypercholesterolemia, unspecified; I25.2 Old myocardial infarction; E03.9 Hypothyroidism, unspecified; Z86.73 Personal history of transient ischemic attack (TIA), and cerebral infarction without residual deficits; Z95.5 Presence of coronary angioplasty implant and graft; Z98.890 Other specified postprocedural states; Z91.041 Radiographic dye allergy status
CPT/HCPCS: 36415; 80053; 81001; 82962; 85025; 96374; 99285; J1815

== ENCOUNTER 2019-05-24 16:54 | Emergency (ER) | payer MEDICARE ==
[~2019-05-24] VITALS: Ht 180.3 cm; Wt 117.0 kg
--- NOTE | 2019-05-24 18:03 | PHYS DOC ---
Past Medical History Past Medical History: CHF, CVA, Diabetes-Type II, High Cholesterol, Heart Disease, Hypertension, Hypothyroid, [place], Other Additional Past Medical Histor: lower ext swelling, short term memory loss (LIZET MURPHY MD) Past Surgical History: Other Additional Past Surgical Histo: carotidendarterecomty, cardiac stent (LIZET UMRPHY MD) Alcohol Use: Rarely Drug Use: None (LIZET MURPHY MD) Adult General Chief Complaint Chief Complaint: heart fluttering HPI HPI Patient is a 74 year old male who presents with obtaining of heart fluttering. Patient states he had blood tests by his primary care physician yesterday and had a call about 45 minutes prior to arrival to ER from his doctor office and was told his potassium was abnormal and he shouldn't take his potassium and comes to ER but patient already had his potassium and became anxious and felt heart fluttering without chest pain, shortness of focal neuro deficit, history of the same problem. (LIZET MURPHY MD) Review of Systems Review of Systems Constitutional: Denies fever or chills [] Eyes: Denies change in visual acuity, redness, or eye pain [] HENT: Denies nasal congestion or sore throat [] Respiratory: Denies cough or shortness of breath [] Cardiovascular: No additional information not addressed in HPI [] GI: Denies abdominal pain, nausea, vomiting, bloody stools or diarrhea [] : Denies dysuria or hematuria [] Musculoskeletal: Denies back pain or joint pain [] Integument: Denies rash or skin lesions [] Neurologic: Denies headache, focal weakness or sensory changes [] Endocrine: Denies polyuria or polydipsia [] All other systems were reviewed and found to be within normal limits, except as documented in this note. (LIZET MURPHY MD) Allergies Allergies Allergies Coded Allergies Type Severity Reaction Last Updated Verified Iodinated Contrast- Oral and IV Dye Allergy Intermediate Rash 07/19/16 Yes (ANGELICA UMAÑA DO) Physical Exam Physical Exam Constitutional: Well developed, well nourished, mild distress, non-toxic ap pearance. [] HENT: Normocephalic, atraumatic. Eyes: PERRLA, EOMI, conjunctiva normal, no discharge. [] Neck: Normal range of motion, no tenderness, supple, no stridor. [] Cardiovascular:Heart rate regular rhythm, no murmur [] Lungs & Thorax: Bilateral breath sounds clear to auscultation [] Abdomen: Bowel sounds normal, soft, no tenderness, no masses, no pulsatile masses. [] Skin: Warm, dry, no erythema, no rash. [] Back: No tenderness, no CVA tenderness. [] Extremities: No tenderness, no cyanosis, no clubbing, ROM intact, no edema. [] Neurologic: Alert and oriented X 3, no focal deficits noted. [] Psychologic: Affect anxious, judgement normal, mood normal. [] (LIZET MURPHY MD) Current Patient Data Vital Signs Vital Signs Date Time Temp Pulse Resp B/P (MAP) Pulse Ox O2 Delivery O2 Flow Rate FiO2 05/24/19 20:07 62 18 135/63 (87) 99 Room Air 05/24/19 17:10 97.6 97.6 (ANGELICA UMAAÑ DO) Lab Values Laboratory Tests Test 05/24/19 18:26 White Blood Count 6.3 x10^3/uL (4.0-11.0) Red Blood Count 3.63 x10^6/uL (4.30-5.70) L Hemoglobin 11.2 g/dL (13.0-17.5) L Hematocrit 33.5 % (39.0-53.0) L Mean Corpuscular Volume 92 fL (79-100) Mean Corpuscular Hemoglobin 31 pg (25-35) Mean Corpuscular Hemoglobin Concent 34 g/dL (31-37) Red Cell Distribution Width 13.9 % (11.5-14.5) Platelet Count 169 x10^3/uL (140-400) Neutrophils (%) (Auto) 62 % (31-73) Lymphocytes (%) (Auto) 25 % (24-48) Monocytes (%) (Auto) 10 % (0-9) H Eosinophils (%) (Auto) 2 % (0-3) Basophils (%) (Auto) 1 % (0-3) Neutrophils # (Auto) 3.9 x10^3/uL (1.8-7.7) Lymphocytes # (Auto) 1.6 x10^3/uL (1.0-4.8) Monocytes # (Auto) 0.6 x10^3/uL (0.0-1.1) Eosinophils # (Auto) 0.1 x10^3/uL (0.0-0.7) Basophils # (Auto) 0.0 x10^3/uL (0.0-0.2) Prothrombin Time 14.3 SEC (11.7-14.0) H Prothrombin Time INR 1.1 (0.8-1.1) Sodium Level 137 mmol/L (136-145) Potassium Level 5.3 mmol/L (3.5-5.1) H Chloride Level 99 mmol/L (98-107) Carbon Dioxide Level 27 mmol/L (21-32) Anion Gap 11 (6-14) Blood Urea Nitrogen 62 mg/dL (8-26) H Creatinine 2.0 mg/dL (0.7-1.3) H Estimated GFR (Cockcroft-Gault) 32.9 BUN/Creatinine Ratio 31 (6-20) H Glucose Level 298 mg/dL (70-99) H Calcium Level 9.2 mg/dL (8.5-10.1) Magnesium Level 2.2 mg/dL (1.8-2.4) Total Bilirubin 0.3 mg/dL (0.2-1.0) Aspartate Amino Transferase (AST) 14 U/L (15-37) L Alanine Aminotransferase (ALT) 14 U/L (16-63) L Alkaline Phosphatase 60 U/L (46-116) Creatine Kinase 92 U/L (39-308) Troponin I Quantitative < 0.017 ng/mL (0.000-0.055) NY-You-E-Type Natriuretic Peptide 161 pg/mL (0-124) H Total Protein 7.9 g/dL (6.4-8.2) Albumin 3.6 g/dL (3.4-5.0) Albumin/Globulin Ratio 0.8 (1.0-1.7) L Lipase 591 U/L (73-393) H Laboratory Tests 05/24/19 18:26 Laboratory Tests 05/24/19 18:26 (ANGELICA UMAÑA DO) EKG EKG EKG at 1717 showed normal sinus rhythm at rate of 72, abnormal left axis deviation, nonspecific intraventricular block, poor R-wave progress in anteroseptal leads. (LIZET MURPHY MD) Radiology/Procedures Radiology/Procedures [] (LIZET MURPHY MD) Course & Med Decision Making Course & Med Decision Making Pertinent Labs and Imaging studies are pending. Sign out given to at 1800 for further evaluation and final disposi tion. Discussed current findings and plan with patient and family, who acknowledge understanding and agreement. (LIZET MURPHY MD) Course & Med Decision Making ED course: Evaluation reveals a 74-year-old male with some chronic renal insufficiency and an elevated potassium. His potassium is only 5.3 today. I've instructed the patient to stop taking his supplemental potassium at home. Patient states he has an appointment with a pecan sheller coming up very soon. D ischarge home at this time. (ANGELICA UMAÑA DO) Dragon Disclaimer Dragon Disclaimer This electronic medical record was generated, in whole or in part, using a voice recognition dictation system. (LIZET MURPHY MD) Departure Departure Impression: Primary Impression: Abnormal laboratory test Additional Impression: Anxiety about health Disposition: 01 HOME, SELF-CARE Condition: STABLE Referrals: BISHNU ALLEN APRN (PCP) Patient Instructions: Hyperkalemia Additional Instructions: Follow with your kidney specialist as scheduled. Return to the emergency department with any new or concerning symptoms. Please stop your supplemental potassium tablets Problem Qualifiers LIZET MURPHY MD May 24, 2019 18:03 ANGELICA UMAÑA DO May 24, 2019 21:12
[2019-05-24 18:44] LABS: CALCIUM 9.2 mg/dL (8.5-10.1); GFR 32.9; POTASSIUM 5.3 mmol/L (3.5-5.1)
[2019-05-24 18:49] LABS: BASO % 1 % (0-3); EOS # 0.1 x10^3/uL (0.0-0.7); EOS % 2 % (0-3); HEMATOCRIT 33.5 % (39.0-53.0); HEMOGLOBIN 11.2 g/dL (13.0-17.5); LYMPH # 1.6 x10^3/uL (1.0-4.8); LYMPH % 25 % (24-48); MEAN CORPUSCULAR HEMOGLOBIN 31 pg (25-35); MEAN CORPUSCULAR HGB CONC 34 g/dL (31-37); MEAN CORPUSCULAR VOLUME 92 fL (79-100); MONO # 0.6 x10^3/uL (0.0-1.1); MONO % 10 % (0-9); NEUT # 3.9 x10^3/uL (1.8-7.7); NEUT % 62 % (31-73); PLATELET COUNT 169 x10^3/uL (140-400); RED BLOOD COUNT 3.63 x10^6/uL (4.30-5.70); RED CELL DISTRIBUTION WIDTH 13.9 % (11.5-14.5); WHITE BLOOD COUNT 6.3 x10^3/uL (4.0-11.0)
[2019-05-24 18:51] LABS: PROTHROMBIN TIME PATIENT 14.3 SEC (11.7-14.0)
[2019-05-24 18:53] LABS: ALBUMIN 3.6 g/dL (3.4-5.0); ALBUMIN/GLOBULIN RATIO 0.8 (1.0-1.7); MAGNESIUM 2.2 mg/dL (1.8-2.4); TOTAL BILIRUBIN 0.3 mg/dL (0.2-1.0); TOTAL PROTEIN 7.9 g/dL (6.4-8.2)
[2019-05-24 21:22] VITALS: BP 137/60
--- NOTE | 2019-05-24 23:31 | RAD ---
PORTABLE CHEST 1V INDICATION: Palpitations. COMPARISON STUDY: 05/24/2019. FINDINGS: Lungs: Normal lung volume. No pulmonary mass or consolidation. The tracheobronchial tree and hilar structures are normal. Pleura: No pleural effusion or pneumothorax. Heart and Mediastinum: Cardiomegaly. The great vessels of the thorax are stable. Bones and Soft Tissues: The bones and soft tissues are stable. IMPRESSION: No acute cardiopulmonary process. Electronically signed by: Luis Enrique Deal MD (05/24/2019 11:28 PM) [facility] [place]
--- NOTE | 2019-05-25 06:52 | EKG ---
[facility] [address] [place] [address] Test Date: 2019-05-24 Test Time: 17:17:57 Pat Name: AARON GOMEZ Department: Room: Gender: M Simulation Analyst: : 1945 Requested By: LIZET MURPHY Order Number: [id number] Reading MD: Gregg Plummer MD Measurements Intervals [place] Rate: 72 P: -90 CA: 162 QRS: -40 QRSD: 136 T: 112 QT: 406 QTc: 446 Interpretive Statements SINUS RHYTHM lbbb Electronically Signed On 05-25-2019 8:20:24 CDT by Gregg Plummer MD
== END 2019-05-24 21:36 | disposition home or self-care (01) ==
LOC: ER 16:54
DX: R79.89 Other specified abnormal findings of blood chemistry (principal); F41.9 Anxiety disorder, unspecified; I49.8 Other specified cardiac arrhythmias; E11.9 Type 2 diabetes mellitus without complications; E78.00 Pure hypercholesterolemia, unspecified; I11.0 Hypertensive heart disease with heart failure; I50.9 Heart failure, unspecified; I25.2 Old myocardial infarction; E03.9 Hypothyroidism, unspecified; Z91.041 Radiographic dye allergy status; Z86.73 Personal history of transient ischemic attack (TIA), and cerebral infarction without residual deficits
CPT/HCPCS: 36415; 71045; 80053; 82550; 83690; 83735; 83880; 84484; 85025; 85610; 93005; 99285-25

== ENCOUNTER 2019-10-07 16:46 | Emergency (ER) | payer MEDICAID, MEDICARE ==
[~2019-10-07] VITALS: Ht 180.3 cm; Wt 120.2 kg
[~2019-10-07 16:46] MED LIST changes: -GLIM4TAB2 PO; +GLIM4TAB8 PO
--- NOTE | 2019-10-07 17:28 | PHYS DOC ---
Past Medical History Past Medical History: CHF, CVA, Diabetes-Type II, High Cholesterol, Heart Disease, Hypertension, Hypothyroid, [place], Other Additional Past Medical Histor: lower ext swelling, short term memory loss (JULIA LAWSON APRN) Past Surgical History: Other Additional Past Surgical Histo: carotidendarterecomty, cardiac stent (JULIA LAWSON APRN) Alcohol Use: Rarely Drug Use: None (JULIA LAWSON APRN) Attending Signature I have participated in the care of this patient and I have reviewed and agree with all pertinent clinical information above including history, exam, and recommendations. (BAN HUDSON MD) Adult General Chief Complaint Chief Complaint: LOWER EXTREMITY SWELLING HPI HPI Patient is a 74 year old male who presents with edema to the right leg that started earlier today. The patient states he had an arterial graft to the right leg on this past Thursday. Denies any other complaints. (JULIA LAWSON APRN) Review of Systems Review of Systems Constitutional: Denies fever or chills [] Eyes: Denies change in visual acuity, redness, or eye pain [] HENT: Denies nasal congestion or sore throat [] Respiratory: Denies cough or shortness of breath [] Cardiovascular: No additional information not addressed in HPI [] GI: Denies abdominal pain, nausea, vomiting, bloody stools or diarrhea [] : Denies dysuria or hematuria [] Musculoskeletal: Denies back pain or joint pain [] Integument: Reports R leg edema Neurologic: Denies headache, focal weakness or sensory changes [] Endocrine: Denies polyuria or polydipsia [] Complete systems were reviewed and found to be within normal limits, except as documented in this note. (JULIA LAWSON APRN) Allergies Allergies Allergies Coded Allergies Type Severity Reaction Last Updated Verified Iodinated Contrast- Oral and IV Dye Allergy Intermediate Rash 07/19/16 Yes (BAN HUDSON MD) Physical Exam Physical Exam Constitutional: Well developed, well nourished, no acute distress, non-toxic appearance. [] HENT: Normocephalic, atraumatic, bilateral external ears normal, oropharynx moist, no oral exudates, nose normal. [] Eyes: PERRLA, EOMI, conjunctiva normal, no discharge. [] Neck: Normal range of motion, no tenderness, supple, no stridor. [] Skin: Warm, dry, no erythema, no rash. [] Back: No tenderness, no CVA tenderness. [] Extremities: No tenderness, no cyanosis, no clubbing, ROM intact, has moderate edema to R leg. Neurologic: Alert and oriented X 3, normal motor function, normal sensory function, no focal deficits noted. [] Psychologic: Affect normal, judgement normal, mood normal. [] (JULIA LAWSON APRN) Current Patient Data Vital Signs Vital Signs Date Time Temp Pulse Resp B/P (MAP) Pulse Ox O2 Delivery O2 Flow Rate FiO2 10/07/19 19:30 66 17 173/66 (101) 97 Room Air 10/07/19 17:32 98.1 98.1 (BAN HUDSON MD) EKG EKG [] (JULIA LAWSON APRN) Radiology/Procedures Radiology/Procedures [facility] [address] [place] [address] IMAGING REPORT Signed PATIENT: AARON GOMEZ ACCOUNT: [id number] : 1945 LOCATION: ER AGE: 74 SEX: M EXAM STATUS: REG ER ORD. PHYSICIAN: JULIA LAWSON APRN REASON: edema to R leg, post STENT PLACEMENT 09/29/2019 PROCEDURE: ARTERIAL STUDY LOWER EXT RIGHT Examination: Ultrasound right lower extremity arterial duplex HISTORY: History of right lower extremity edema, stent placement COMPARISON: None TECHNIQUE: Grayscale, color 2-D, spectral waveform analysis of the right lower extremity arterial duplex performed Findings: The velocity in the: Common femoral artery is 158 cm/s, biphasic. Deep femoral artery 161 cm/s, triphasic. Proximal superficial femoral artery 177 cm/s, biphasic. Mid SFA 1 39 cm/s, biphasic. Distal SFA 132 cm/s, monophasic. Popliteal artery 117, biphasic. Distal CLIP BOLTER AND WRAPPER 122 cm/s, monophasic Peroneal artery 86 cm/s, monophasic. Anterior tibialis artery 76 cm/s, monophasic Dorsalis pedis artery 31 cm/s, monophasic. Moderate atherosclerotic calcifications identified in the right lower extremity arterial system. IMPRESSION: No evidence of hemodynamically significant stenosis. Electronically signed by: Max Bishop MD (10/07/2019 6:51 PM) [facility] DICTATED and SIGNED BY: MAX BISHOP MD DATE: 10/07/191850 [][facility] [address] [place] [address] IMAGING REPORT Signed PATIENT: AARON GOMEZ ACCOUNT: [id number] : 1945 LOCATION: ER AGE: 74 SEX: M EXAM STATUS: REG ER ORD. PHYSICIAN: JULIA LAWSON APRN REASON: edema to R leg PROCEDURE: VENOUS LOWER EXTREMITY RIGHT Examination: Right Lower Extremity Venous Doppler Ultrasound History: Right lower extremity edema Comparison: None Procedure: Mai scale, color flow 2D and spectal waveform analysis images are obtained with and without compression in the area of the common femoral vein, superficial femoral vein - femoral vein junction, main femoral vein (superficial femoral vein) and popliteal vein. Veins of the proximal calf are also imaged. Findings: There is normal duplex flow, color flow and compressibility of all visualized vein segments. No evidence of deep venous thrombus is present. Mild soft tissue edema right lower leg. Small right inguinal lymph nodes. Impression: No evidence of DVT in the visualized right lower extremity venous system. Electronically signed by: Max Bishop MD (10/07/2019 6:38 PM) [facility] DICTATED and SIGNED BY: MAX BISHOP MD DATE: 10/07/191837 (JULIA LAWSON APRN) Course & Med Decision Making Course & Med Decision Making Pertinent Labs and Imaging studies reviewed. (See chart for details) Will get ultrasound of leg. Ultrasound is unremarkable. Will d/c home to follow up with surgeon. (JULIA LAWSON APRN) Dragon Disclaimer Dragon Disclaimer This electronic medical record was generated, in whole or in part, using a voice recognition dictation system. (JULIA LAWSON APRN) Departure Departure Impression: Primary Impression: Leg edema, right Disposition: HOME, SELF-CARE Condition: STABLE Referrals: BISHNU ALLEN APRN (PCP) Additional Instructions: Thank you for visiting [facility]. We appreciate you trusting us with your care. If any additional problems come up don't hesitate to return to visit us. Please follow up with your primary care provider so they can plan additional care if needed and know about the problem that you had. If symptoms worsen come back to the Emergency Department. Any concerning symptoms that start such as chest pain, shortness of air, weakness or numbness on one side of the body, running high fevers or any other concerning symptoms return to the ER. Please follow up with your surgeon. JULIA LAWSON APRN Oct 07, 2019 17:28 BAN HUDSON MD Oct 08, 2019 00:24
--- NOTE | 2019-10-07 18:41 | RAD ---
Examination: Right Lower Extremity Venous Doppler Ultrasound History: Right lower extremity edema Comparison: None Procedure: Mai scale, color flow 2D and spectal waveform analysis images are obtained with and without compression in the area of the common femoral vein, superficial femoral vein - femoral vein junction, main femoral vein (superficial femoral vein) and popliteal vein. Veins of the proximal calf are also imaged. Findings: There is normal duplex flow, color flow and compressibility of all visualized vein segments. No evidence of deep venous thrombus is present. Mild soft tissue edema right lower leg. Small right inguinal lymph nodes. Impression: No evidence of DVT in the visualized right lower extremity venous system. Electronically signed by: Max Bishop MD (10/07/2019 6:38 PM) [facility]
--- NOTE | 2019-10-07 18:55 | RAD ---
Examination: Ultrasound right lower extremity arterial duplex HISTORY: History of right lower extremity edema, stent placement COMPARISON: None TECHNIQUE: Grayscale, color 2-D, spectral waveform analysis of the right lower extremity arterial duplex performed Findings: The velocity in the: Common femoral artery is 158 cm/s, biphasic. Deep femoral artery 161 cm/s, triphasic. Proximal superficial femoral artery 177 cm/s, biphasic. Mid SFA 1 39 cm/s, biphasic. Distal SFA 132 cm/s, monophasic. Popliteal artery 117, biphasic. Distal SAFETY ADMINISTRATOR 122 cm/s, monophasic Peroneal artery 86 cm/s, monophasic. Anterior tibialis artery 76 cm/s, monophasic Dorsalis pedis artery 31 cm/s, monophasic. Moderate atherosclerotic calcifications identified in the right lower extremity arterial system. IMPRESSION: No evidence of hemodynamically significant stenosis. Electronically signed by: Max Bishop MD (10/07/2019 6:51 PM) [facility]
[2019-10-07 19:30] VITALS: BP 173/66
== END 2019-10-07 19:30 | disposition home or self-care (01) ==
LOC: ER 16:46
DX: R60.0 Localized edema (principal); I11.0 Hypertensive heart disease with heart failure; I50.9 Heart failure, unspecified; E11.9 Type 2 diabetes mellitus without complications; E78.00 Pure hypercholesterolemia, unspecified; E03.9 Hypothyroidism, unspecified; I25.2 Old myocardial infarction; I70.201 Unspecified atherosclerosis of native arteries of extremities, right leg; Z86.73 Personal history of transient ischemic attack (TIA), and cerebral infarction without residual deficits; Z95.5 Presence of coronary angioplasty implant and graft; Z91.041 Radiographic dye allergy status
CPT/HCPCS: 93923; 93971; 99284